=== PATIENT | female | born 1955 | race Caucasian/White ===

== ENCOUNTER → 2019-09-29 13:18 | Outpatient (BNVA) | payer MEDICARE, MEDICAID, SELFPAY | PROVIDERS: Family Provider Family Medicine; PCP Family Medicine; Visit Provider Nurse Practitioner | DX: M47.816 Spondylosis without myelopathy or radiculopathy, lumbar region (principal); M54.16 Radiculopathy, lumbar region; M47.812 Spondylosis without myelopathy or radiculopathy, cervical region; F17.290 Nicotine dependence, other tobacco product, uncomplicated; Z79.891 Long term (current) use of opiate analgesic | CPT/HCPCS: 99214 ==

== ENCOUNTER → 2019-11-07 13:34 | Outpatient (BNVA) | payer MEDICARE, MEDICAID, SELFPAY | PROVIDERS: Family Provider Family Medicine; PCP Family Medicine; Visit Provider Nurse Practitioner Psychiatric/Mental Health | DX: F33.2 Major depressive disorder, recurrent severe without psychotic features (principal); F60.3 Borderline personality disorder; F17.210 Nicotine dependence, cigarettes, uncomplicated | CPT/HCPCS: 99214 ==

== ENCOUNTER → 2019-11-29 12:21 | Outpatient (BNVA) | payer MEDICARE, MEDICAID, SELFPAY | PROVIDERS: Family Provider Family Medicine; PCP Family Medicine; Visit Provider Nurse Practitioner | DX: Z76.89 Persons encountering health services in other specified circumstances (principal) | CPT/HCPCS: 99213 ==

== ENCOUNTER → 2019-12-14 07:31 | Outpatient (BNVA) | payer MEDICARE, MEDICAID, SELFPAY | PROVIDERS: Family Provider Family Medicine; PCP Family Medicine; Visit Provider Nurse Practitioner Psychiatric/Mental Health | DX: F33.2 Major depressive disorder, recurrent severe without psychotic features (principal); F60.3 Borderline personality disorder; F17.210 Nicotine dependence, cigarettes, uncomplicated; Z79.899 Other long term (current) drug therapy | CPT/HCPCS: 99214 ==

== ENCOUNTER → 2020-01-04 13:27 | Outpatient (BNVA) | payer MEDICARE, MEDICAID, SELFPAY | PROVIDERS: Family Provider Family Medicine; PCP Family Medicine; Visit Provider Specialist | DX: G43.711 Chronic migraine without aura, intractable, with status migrainosus (principal); H55.09 Other forms of nystagmus; R26.9 Unspecified abnormalities of gait and mobility | CPT/HCPCS: 64615; 99213; J0585 ==

== ENCOUNTER → 2020-01-15 10:23 | Outpatient (BNVA) | payer MEDICARE, MEDICAID, SELFPAY | PROVIDERS: Family Provider Family Medicine; PCP Family Medicine; Visit Provider Nurse Practitioner Psychiatric/Mental Health | DX: Z79.899 Other long term (current) drug therapy (principal) | CPT/HCPCS: 80061; 83036 ==

== ENCOUNTER 2020-02-01 07:07 | Outpatient (CLI) | payer MEDICARE, MEDICAID, SELFPAY ==
--- NOTE | 2020-02-01 07:17 | MM_ITS ---
WS: [id number] SCREENING DIGITAL MAMMOGRAM WITH CAD HISTORY: SCREENING COMPARISON: 11/16/2018, 05/06/2018 and 09/30/2017 Bilateral CC and MLO views submitted. Computer aided detection analyzed. Breast composition: There are scattered areas of fibroglandular density. Irregular 8 mm nodule at 12: 00 middle depth in the RIGHT breast is new. Slightly irregular and ovoid in shape. Otherwise normal a ppearance of each breast. RIGHT breast: Spot compression views (CC and MLO). True ML. Ultrasound to follow if abnormality persi sts. MM/[place] [id number] IMPRESSION: BI-RADS: 0-Incomplete: Need additional imaging evaluation FOLLOW UP: Need Additional Imaging
== END 2020-02-01 07:08 | disposition home or self-care (01) ==
LOC: RADSHAW 07:10
PROVIDERS: PCP Family Medicine; Visit Provider Family Medicine
DX: Z12.31 Encounter for screening mammogram for malignant neoplasm of breast (principal); N63.15 Unspecified lump in the right breast, overlapping quadrants
CPT/HCPCS: 77067

== ENCOUNTER → 2020-02-07 07:45 | Outpatient (BNVA) | payer MEDICARE, MEDICAID, SELFPAY | PROVIDERS: PCP Family Medicine; Visit Provider Nurse Practitioner Psychiatric/Mental Health | DX: F33.2 Major depressive disorder, recurrent severe without psychotic features (principal); F60.3 Borderline personality disorder; F17.210 Nicotine dependence, cigarettes, uncomplicated | CPT/HCPCS: 99214 ==

== ENCOUNTER 2020-02-15 10:40 | Outpatient (CLI) | payer MEDICARE, MEDICAID, SELFPAY ==
--- NOTE | 2020-02-15 10:47 | US_ITS ---
WS: [id number] RIGHT DIGITAL MAMMOGRAPHY WITH CAD CLINICAL INFORMATION: ABNORMAL MAMMOGRAM COMPARISON: February 01, 2020 TECHNIQUE: 3 views of the right breast were obtained. FINDINGS: Scattered fibroglandular densities of the right breast. Punctate calcifications. Again seen is the sm all 8 mm asymmetric density at the 12:00 position mid depth right breast. This is unchanged. Ultrasou nd is pending. ULTRASOUND BREAST RIGHT TECHNIQUE: Ultrasound right breast focused area of concern. CLINICAL INFORMATION: ABNORMAL MAMMOGRAM COMPARISON: None. FINDINGS: Ultrasound right breast 12 to 2:00 position. Normal underlying breast tissue. No cystic or solid lesi ons. No lesions to target for biopsy. No suspicious lesions. US/US breast RT limited* [id number] IMPRESSION: BI-RADS: 2-Benign FOLLOW UP: 1 Year Follow-up Recommend return to annual screening mammography.
== END 2020-02-15 10:41 | disposition home or self-care (01) ==
LOC: RADSHAW 10:45
PROVIDERS: PCP Family Medicine; Visit Provider Family Medicine
DX: R92.8 Other abnormal and inconclusive findings on diagnostic imaging of breast (principal); N64.89 Other specified disorders of breast
CPT/HCPCS: 76642; 77065

== ENCOUNTER → 2020-03-14 07:46 | Outpatient (BNVA) | payer MEDICARE, MEDICAID, SELFPAY | PROVIDERS: PCP Family Medicine; Visit Provider Nurse Practitioner Psychiatric/Mental Health | DX: F33.2 Major depressive disorder, recurrent severe without psychotic features (principal); F60.3 Borderline personality disorder; F17.210 Nicotine dependence, cigarettes, uncomplicated; F43.12 Post-traumatic stress disorder, chronic | CPT/HCPCS: 99214 ==

== ENCOUNTER → 2020-03-20 13:36 | Outpatient (BNVA) | payer MEDICARE, MEDICAID, SELFPAY | PROVIDERS: PCP Family Medicine; Visit Provider Nurse Practitioner Family | DX: R05 Cough (principal); R19.7 Diarrhea, unspecified; R53.81 Other malaise; R53.83 Other fatigue; Z11.59 Encounter for screening for other viral diseases | CPT/HCPCS: 87635 ==

== ENCOUNTER → 2020-04-04 07:57 | Outpatient (BNVA) | payer MEDICARE, MEDICAID, SELFPAY | PROVIDERS: Family Provider Family Medicine; PCP Family Medicine; Visit Provider Anesthesiology | DX: G89.29 Other chronic pain (principal); M47.812 Spondylosis without myelopathy or radiculopathy, cervical region; M47.816 Spondylosis without myelopathy or radiculopathy, lumbar region; M54.16 Radiculopathy, lumbar region; F17.210 Nicotine dependence, cigarettes, uncomplicated; Z79.891 Long term (current) use of opiate analgesic | CPT/HCPCS: 99213; 99214 ==

== ENCOUNTER → 2020-04-17 13:40 | Outpatient (BNVA) | payer MEDICARE, MEDICAID, SELFPAY | PROVIDERS: Family Provider Family Medicine; PCP Family Medicine; Visit Provider Obstetrics & Gynecology | DX: R32 Unspecified urinary incontinence (principal); F40.231 Fear of injections and transfusions | CPT/HCPCS: 80053 ==

== ENCOUNTER 2020-04-30 15:16 | Outpatient (CLI) | payer MEDICARE, MEDICAID, SELFPAY ==
--- NOTE | 2020-04-30 15:23 | XR_ITS ---
WS: [id number] SCREENING DEXA SCAN [employer] CLINICAL INFORMATION: POSTMENOPAUSAL STATUS COMPARISON: None. FINDINGS: The L1-L4 bone mineral density measures 0.779 g/cm2. This corresponds to a T score score of -3.3 and Z score of -2.2. Left femoral neck bone mineral density measures 0.774 g/cm2. This corresponds to a T score of -1.9 an d Z score of -0.9. Right femoral neck bone mineral density measures 0.787 g/cm2. This corresponds to a T score -1.8of an d Z score of -0.8. Mean femoral neck bone mineral density measures 0.780 g/cm2. This corresponds to a T score of -1.8 an d Z score of -0.9. XR/XR DEXA axial skeleton* [id number] IMPRESSION: Osteoporosis in the lumbar spine and osteopenia in the femoral necks. Patient's FRAX calculated 10 year probability for major osteoporotic fracture i s 13.6 % and osteoporotic hip fracture is 4.3%.
== END 2020-04-30 15:17 | disposition home or self-care (01) ==
LOC: RADWPI 15:22
PROVIDERS: Family Provider Family Medicine; PCP Family Medicine; Visit Provider Family Medicine
DX: Z78.0 Asymptomatic menopausal state (principal); M81.0 Age-related osteoporosis without current pathological fracture
CPT/HCPCS: 77080

== ENCOUNTER → 2020-05-09 12:32 | Outpatient (BNVA) | payer MEDICARE, MEDICAID, SELFPAY | PROVIDERS: Family Provider Family Medicine; PCP Family Medicine; Visit Provider Anesthesiology | DX: G89.29 Other chronic pain (principal); M54.16 Radiculopathy, lumbar region; M54.6 Pain in thoracic spine; M47.812 Spondylosis without myelopathy or radiculopathy, cervical region; M54.9 Dorsalgia, unspecified; F17.210 Nicotine dependence, cigarettes, uncomplicated; Z79.891 Long term (current) use of opiate analgesic | CPT/HCPCS: 99214 ==

== ENCOUNTER 2020-05-17 06:00 | Outpatient (RCR) | payer MEDICARE, MEDICAID, SELFPAY | END 2020-05-29 23:59 | disposition home or self-care (01) | LOC: SPT 06:00 | PROVIDERS: PCP Family Medicine; Referring Provider Family Medicine; Visit Provider Family Medicine | DX: R26.81 Unsteadiness on feet (principal); G35 Multiple sclerosis | CPT/HCPCS: 97110; 97162 ==

== ENCOUNTER → 2020-05-23 08:43 | Outpatient (BNVA) | payer MEDICARE, MEDICAID, SELFPAY | PROVIDERS: PCP Family Medicine; Visit Provider Nurse Practitioner Psychiatric/Mental Health | DX: F33.2 Major depressive disorder, recurrent severe without psychotic features (principal); F60.3 Borderline personality disorder; F17.210 Nicotine dependence, cigarettes, uncomplicated | CPT/HCPCS: 99214 ==

== ENCOUNTER 2020-05-30 06:00 | Outpatient (RCR) | payer MEDICARE, MEDICAID, SELFPAY | END 2020-06-26 08:46 | disposition home or self-care (01) | LOC: SPT 06:00 | PROVIDERS: PCP Family Medicine; Referring Provider Family Medicine; Visit Provider Family Medicine | DX: R26.81 Unsteadiness on feet (principal); G35 Multiple sclerosis | CPT/HCPCS: 97110 ==

== ENCOUNTER → 2020-06-27 07:51 | Outpatient (BNVA) | payer MEDICARE, MEDICAID, SELFPAY | PROVIDERS: Family Provider Family Medicine; PCP Family Medicine; Visit Provider Anesthesiology | DX: G89.29 Other chronic pain (principal); G37.9 Demyelinating disease of central nervous system, unspecified; M54.16 Radiculopathy, lumbar region; M47.812 Spondylosis without myelopathy or radiculopathy, cervical region; M54.9 Dorsalgia, unspecified; F17.210 Nicotine dependence, cigarettes, uncomplicated; Z79.891 Long term (current) use of opiate analgesic | CPT/HCPCS: 99214 ==

== ENCOUNTER → 2020-07-11 09:38 | Outpatient (BNVA) | payer MEDICARE, MEDICAID, SELFPAY | PROVIDERS: Family Provider Family Medicine; PCP Family Medicine; Visit Provider Anesthesiology | DX: M79.18 Myalgia, other site (principal); M47.812 Spondylosis without myelopathy or radiculopathy, cervical region; F17.210 Nicotine dependence, cigarettes, uncomplicated; Z79.891 Long term (current) use of opiate analgesic | CPT/HCPCS: 20553; J1030; J3490 ==

== ENCOUNTER → 2020-07-18 08:25 | Outpatient (BNVA) | payer MEDICARE, MEDICAID, SELFPAY | PROVIDERS: Family Provider Family Medicine; PCP Family Medicine; Visit Provider Nurse Practitioner Psychiatric/Mental Health | DX: F33.2 Major depressive disorder, recurrent severe without psychotic features (principal); F60.3 Borderline personality disorder; F17.210 Nicotine dependence, cigarettes, uncomplicated | CPT/HCPCS: 99214 ==

== ENCOUNTER → 2020-08-12 09:42 | Outpatient (BNVA) | payer MEDICARE, MEDICAID, SELFPAY | PROVIDERS: Family Provider Family Medicine; PCP Family Medicine; Visit Provider Nurse Practitioner Psychiatric/Mental Health | DX: F33.2 Major depressive disorder, recurrent severe without psychotic features (principal); F60.3 Borderline personality disorder; F17.210 Nicotine dependence, cigarettes, uncomplicated | CPT/HCPCS: 99214 ==

== ENCOUNTER 2020-08-14 13:57 | Outpatient (CLI) | payer MEDICARE, MEDICAID, SELFPAY ==
--- NOTE | 2020-08-14 14:01 | XR_ITS ---
WS: [id number] Chest 2 views, 08/14/2020 Clinical Data: COUGH Comparison: PA and lateral chest, 02/29/2000 1720 Findings: No nodules, masses or effusions are seen. The heart is enlarged. The pulmonary vascularity is not increased. No pneumonia or pneumothorax is seen. The aortic arch and descending aorta are tort uous. There is a slight dextroscoliosis of the lower thoracic spine. There are epidural stimulator wi res over the right chest with the stimulator leads at the level of the lower cervical epidural space. XR/XR chest 2V* [id number] Impression: Atherosclerosis.
== END 2020-08-14 13:58 | disposition home or self-care (01) ==
LOC: RAD 13:59
PROVIDERS: PCP Family Medicine; Visit Provider Family Medicine
DX: R05 Cough (principal); I70.90 Unspecified atherosclerosis
CPT/HCPCS: 71046

== ENCOUNTER → 2020-08-27 07:54 | Outpatient (BNVA) | payer MEDICARE, MEDICAID, SELFPAY | PROVIDERS: PCP Family Medicine; Visit Provider Anesthesiology | DX: M47.812 Spondylosis without myelopathy or radiculopathy, cervical region (principal); M54.9 Dorsalgia, unspecified; M54.16 Radiculopathy, lumbar region; G89.29 Other chronic pain; Z79.891 Long term (current) use of opiate analgesic; Z87.891 Personal history of nicotine dependence | CPT/HCPCS: 99214 ==

== ENCOUNTER → 2020-09-04 09:56 | Outpatient (BNVA) | payer MEDICARE, MEDICAID, SELFPAY | PROVIDERS: PCP Family Medicine; Visit Provider Specialist | DX: R26.9 Unspecified abnormalities of gait and mobility (principal); G43.711 Chronic migraine without aura, intractable, with status migrainosus; H55.09 Other forms of nystagmus; Z87.891 Personal history of nicotine dependence | CPT/HCPCS: 99214 ==

== ENCOUNTER → 2020-09-11 08:13 | Outpatient (BNVA) | payer MEDICARE, MEDICAID, SELFPAY | PROVIDERS: PCP Family Medicine; Visit Provider Nurse Practitioner Psychiatric/Mental Health | DX: F33.2 Major depressive disorder, recurrent severe without psychotic features (principal); F60.3 Borderline personality disorder; F17.210 Nicotine dependence, cigarettes, uncomplicated; F41.1 Generalized anxiety disorder | CPT/HCPCS: 99214 ==

== ENCOUNTER → 2020-09-12 17:34 | Outpatient (BNVA) | payer MEDICARE, MEDICAID, SELFPAY | PROVIDERS: PCP Family Medicine; Visit Provider Family Medicine | DX: Z11.59 Encounter for screening for other viral diseases (principal) | CPT/HCPCS: 87635 ==

== ENCOUNTER → 2020-10-09 07:27 | Outpatient (BNVA) | payer MEDICARE, MEDICAID, SELFPAY | PROVIDERS: PCP Family Medicine; Visit Provider Nurse Practitioner Psychiatric/Mental Health | DX: F33.2 Major depressive disorder, recurrent severe without psychotic features (principal); F60.3 Borderline personality disorder; F17.210 Nicotine dependence, cigarettes, uncomplicated | CPT/HCPCS: 99214 ==

== ENCOUNTER → 2020-10-22 08:26 | Outpatient (BNVA) | payer MEDICARE, MEDICAID, SELFPAY | PROVIDERS: PCP Family Medicine; Visit Provider Anesthesiology | DX: G89.29 Other chronic pain (principal); M54.16 Radiculopathy, lumbar region; M47.812 Spondylosis without myelopathy or radiculopathy, cervical region; F17.210 Nicotine dependence, cigarettes, uncomplicated; Z79.891 Long term (current) use of opiate analgesic; Z71.6 Tobacco abuse counseling | CPT/HCPCS: 99213; 99214 ==

== ENCOUNTER 2020-11-11 12:42 | Emergency (ER) | payer MEDICARE, MEDICAID, SELFPAY ==
[2020-11-11] VITALS (9 sets, daily range): BP systolic 153–163; BP diastolic 81–99; PULSE 74–92; RESP 16–22; TEMP 36.7; O2SAT 93–96; BMI 31.1
--- NOTE | 2020-11-11 13:02 | ECG_ITS ---
[facility] Test Date: 2020-11-11 Pat Name: Ruthie Fontenot Department: Room: Gender: Female [employer] C[employer]: : 1955 Requested By: Mike Fernández Order Number: [id number] Joshua MD: Shahana Kelley M.D. Measurements Intervals [place] Rate: 75 P: 42 [place]: 162 QRS: 42 QRSD: 89 T: 38 QT: 415 QTc: 464 Interpretive Statements SINUS RHYTHM Compared to ECG 10/07/2016 23:17:03 No significant changes Electronically Signed On 11-11-2020 23:58:43 CDT by Shahana Kelley M.D. [id number]
--- NOTE | 2020-11-11 13:07 | W.ED.NAVMDI ---
HPI - Nausea/Vomiting/Diarrhea General: Chief complaint: Nausea/Vomiting/Diarrhea Stated complaint: N/V/D Time Seen by Provider: 11/11/20 12:52 History of Present Illness: HPI Narrative: The patient is a 65-year-old female with past medical history MS, gastric ulcer, hypertension. She comes to the ER complaining of nausea vomiting and diarrhea for the past 3 days as well as epigastric abdominal pain. She was brought in by EMS who started fluids and gave her Phenergan. She says this all started a few months back when she got Covid and she has felt weak since. However she felt much better but over the past few days increasing nausea vomiting and diarrhea and she feels dehydrated. MD elicited complaint: nausea, vomiting, diarrhea and abdominal pain Associated nausea: Yes Associated abdominal pain: Yes Location of pain: Epigastric Pain consistency: constant Severity: moderate Quality: cramping Exacerbating factors: eating, bowel movement and vomiting Relieving factors: none Associated symtoms: Reports no associated symptoms and nausea; Denies anxiety, change in vision, chest pain, dizziness, fatigue, headache(s) or palpitations Review of Systems General: Reports: 10 or more systems reviewed and unremarkable except in HPI and below Const: Denies: fatigue Eyes: Denies: change in vision, blurry vision or eye redness ENMT: Denies: throat pain, swelling of lips/tongue, ear or mastoid pain or nasal congestion Card: Denies: chest pain, palpitations, irregular heart rhythm, edema, dyspnea on exertion or orthopnea Resp: Denies: dyspnea, productive cough or non-productive cough GI: Reports: nausea : Denies: flank pain, difficulty voiding, urinary frequency or urinary urgency Musc: Denies: neck pain, back pain, extremity pain, joint pain, joint redness, limited range of motion or muscle weakness Skin/Breast: Denies: rash, pruritus, erythema, skin pain or skin tenderness Neuro: Denies: headache(s), numbness in extremities, weakness in extremities, sensory changes, difficulty walking, dizziness, confusion or Slurred speech present Psych: Denies: anxiety or depression Endo: Denies: polyuria All/Imm: Denies: urticaria, throat swelling or tongue swelling PFSH ED PFSH: Medical History Borderline personality disorder Cervical facet syndrome Chronic hypertension Diagnosed in 2009 and controlled on medication managed by primary care provider Chronic radicular low back pain Has had surgery for chronic lower back pain. Diabetes mellitus Diagnosed in 2014 and she is currently on metformin. She states that her last hemoglobin A1c was high Hypercholesteremia Diagnosed in 2009 and is controlled with medication managed by PMD Long-term current use of opiate analgesic Major depressive disorder, recurrent severe without psychotic features 2014 currently on medication and follows up with [facility] Myalgia No pertinent past medical history Denies: Asthma seizures, DVT/PE PCP: Dr. Coronado Surgical History Hx of cervical spine surgery (~03/24/18) Dr Watts 03/24/18 Comments: Cervical laminectomy for placement of intraspinal, epidural paddle electrode arrays and placement of subcutaneous pulse generator. Hx of cholecystectomy 2011-[facility]ar[place] [facility] [facility] Hx of hysterectomy Had a total abdominal hysterectomy via Pfannenstiel incision for pelvic inflammatory disease per patient. She states that both tubes, uterus and the left ovary were removed. She only has her right ovary remaining at this time. Family History Mother Diabetes Heart disease Hyperlipidemia Brother Hypertension x 2 Sister Breast cancer Diagnose at age 35 Denies family history of Colon cancer Ovarian cancer Anesthesia complication Bleeding disorder Uterine cancer Thyroid condition Stroke Social History Smoking and tobacco status: former smoker Quit status (tobacco): has quit using tobacco Former quit date comment: STOPPED 5 DAYS AGO Second hand smoke exposure: Yes Alcohol intake: never Lives independently: Yes Household members: none Current occupational status: disabled History of recent travel: No Physical Exam Const: COMMON NORMALS: no acute distress, average body habitus, patient oriented x3, no limitations, healthy appearing, alert and well nourished GENERAL APPEARANCE: cooperative, comfortable, well kempt and well developed ORIENTATION/CONSCIOUSNESS: Yes awake, Yes oriented to person, Yes oriented to place and Yes oriented to time HENMT: COMMON NORMALS: normocephalic, external ears normal and Normal external nose present HEAD & SCALP: normal to inspection and normocephalic NOSE: Normal external nose present EXTERNAL EAR: Yes external ears normal MOUTH: Normal oral and palatal mucosa present THROAT: posterior oropharynx normal Eye: COMMON NORMALS: Equal, round and reactive pupils present and EOMs intact bilaterally GENERAL EYE: appearance normal, both eyes and all related structures PUPIL: Yes Equal, round and reactive pupils present Neck/C-Spine: COMMON NORMALS: full ROM, no lymphadenopathy, no meningeal signs and no JVD GENERAL: Yes normal visual inspection Lymph: LYMPHATIC: no lymphadenopathy noted Chest: COMMONS NORMALS: normal inspection of the chest and normal palpation of entire chest wall Resp: COMMON NORMALS: normal respiratory effort, No retractions, No use of accessory muscles, clear to auscultation bilaterally and percussion normal EFFORT & INSPECTION: Yes able to speak in complete sentences AUSCULTATION: clear to auscultation bilaterally PERCUSSION: percussion normal Cardio: COMMON NORMALS: no JVD, regular rate, regular rhythm, S1 normal heart sound present, S2 normal heart sound present and Peripheral pulses 2+ throughout RATE: regular rate RHYTHM: regular rhythm HEART SOUNDS: S1 normal heart sound present and S2 normal heart sound present PERIPHERAL PULSES: Peripheral pulses 2+ throughout GI: COMMON NORMALS: Normal to inspection, nondistended, normoactive bowel sounds present, Soft to palpation and no masses INSPECTION: Yes normal to inspection PALPATION: Yes Soft to palpation and Yes Tenderness to palpation present (GI) (epigastric) : COMMON NORMALS: Yes no CVA tenderness BLADDER/KIDNEY EXAM: Yes no CVA tenderness Back/Pelvis: COMMON NORMALS: no CVA tenderness, thoracic and lumbar spine normal to inspection, no thoracic nor lumbar tenderness and thoraco-lumbar ROM normal Extremity: COMMON NORMALS: normal to inspection, full ROM, capillary refill normal, no joint enlargement and no pedal edema GENERAL: Yes normal exam except as noted Neuro: COMMON NORMALS: patient oriented x3, CN's II-XII intact bilaterally, moves all extremities, no focal motor deficits, no sensory deficits noted and gait normal SENSORIUM/ORIENTATION: Yes alert, Yes oriented to person, Yes oriented to place and Yes oriented to time MENINGEAL SIGNS: Yes no meningeal signs Psych: COMMON NORMALS: mental status grossly normal, Normal thought process present, cooperative, normal affect and speech normal APPEARANCE: Yes well kempt ATTITUDE: Yes calm SPEECH: Yes normal speech THOUGHT PROCESS: Normal thought process present Skin: COMMON NORMALS: no rashes or lesions noted GENERAL SKIN EXAM: no rashes or lesions noted Course Vital Signs: Vital signs: Vital Signs Temperature 98.0 F 11/11/20 12:44 Pulse Rate 92 11/11/20 15:27 Respiratory Rate 16 11/11/20 15:27 Blood Pressure 163/81 11/11/20 15:27 Pulse Oximetry 93 11/11/20 15:27 MDM - Nausea/Vomiting/Diarrhea MDM Narrative: Medical decision making narrative: Ms. Hendricks came here today for upper abdominal pain and nausea which she has had for weeks. Worse the past couple days. She has a history of gastric ulcer which she does not take anything for. Labs were mostly unremarkable with a mild white count of 12.2 likely from dehydration. She was given IV fluids, Zofran, GI cocktail. The GI cocktail did help her pain. CT abdomen pelvis unremarkable. Discharged her with omeprazole and recommended she follow-up with her primary care physician in a few days. Placed a case management referral to help her get in with a GI doctor. ER with worsening symptoms Lab Data: Labs: Lab Results 11/11/20 11/11/20 11/11/20 Range/Units 12:25 12:25 12:25 WBC 12.2 H (4.0-10.0) 10^3/ uL RBC 5.30 (4.1-5.3) 10^6/u L Hgb 16.0 H (11.5-15.3) g/dL Hct 47.5 H (37.0-47.0) % MCV 89.6 (81-99) fL MCH 30.2 (28.0-34.0) pg MCHC 33.7 (30.0-36.0) g/dL RDW 12.9 (12.1-15.1) % Plt Count 322 (130-400) 10^3/c mm MPV 9.0 (7.4-10.4) fL Neut % (Auto) 82.6 % Lymph % (Auto) 14.1 % Snyder % (Auto) 2.4 % Eos % (Auto) 0.0 % Baso % (Auto) 0.3 % Neut # (Auto) 10.12 H (1.8-7.7) 10^3/u L Lymph # (Auto) 1.7 (0.8-4.8) 10^3/u L Snyder # (Auto) 0.3 (0.2-0.9) 10^3/u L Eos # (Auto) 0.0 (0.0-0.8) 10^3/u L Baso # (Auto) 0.0 (0.0-0.1) 10^3/u L Nucleated RBC % (a uto) 0 % Nucleated RBCs # 0.0 /100WBC Sodium 140 (136-145) mmol/L Potassium 4.1 (3.5-5.1) mmol/L Chloride 101 (98-107) mmol/L Carbon Dioxide 21 L (22-29) mmol/L Anion Gap 22.1 H (5-19) BUN 13 (8-23) mg/dL Creatinine 0.5 (0.5-0.9) mg/dL GFR Calculation 123.4 (90-130) mL/min Glucose 182 H (65-115) mg/dL Calculated Osmolal ity 295 (285-295) mOsm/k g Lactate (0.5-2.2) mmol/L Calcium 10.0 (8.5-10.5) mg/dL Total Bilirubin 0.3 (0.15-1.2) mg/dL AST 26 (0-32) U/L ALT 18 (0-33) U/L Alkaline Phosphata se 66 (35-105) IU/L Troponin T Baselin e 6 (0-10) ng/L Total Protein 7.9 (6.6-8.7) g/dL Albumin 5.0 (3.5-5.2) g/dL Globulin 2.9 (1.3-4.6) g/dL Lipase 86 H (13-60) U/L Urine Color (Yellow) Urine Appearance (CLEAR) Urine pH (5-7) Ur Specific Gravit y (1.005-1.030) Urine Protein (Negative) Urine Glucose (UA) (Normal) Urine Ketones (Negative) Urine Blood (Negative) Urine Nitrate (Negative) Urine Bilirubin (Negative) Urine Urobilinogen (Negative) mg/dL Ur Leukocyte Eleanor ase (Negative) Urine RBC (0-2) /hpf Urine WBC (0-5) /hpf Ur Squamous Epith Cells (0-5) /hpf Amorphous Sediment Urine Bacteria (NONE) /hpf 11/11/20 11/11/20 Range/Units 14:45 15:26 WBC (4.0-10.0) 10^3/ uL RBC (4.1-5.3) 10^6/u L Hgb (11.5-15.3) g/dL Hct (37.0-47.0) % MCV (81-99) fL MCH (28.0-34.0) pg MCHC (30.0-36.0) g/dL RDW (12.1-15.1) % Plt Count (130-400) 10^3/c mm MPV (7.4-10.4) fL Neut % (Auto) % Lymph % (Auto) % Snyder % (Auto) % Eos % (Auto) % Baso % (Auto) % Neut # (Auto) (1.8-7.7) 10^3/u L Lymph # (Auto) (0.8-4.8) 10^3/u L Snyder # (Auto) (0.2-0.9) 10^3/u L Eos # (Auto) (0.0-0.8) 10^3/u L Baso # (Auto) (0.0-0.1) 10^3/u L Nucleated RBC % (a uto) % Nucleated RBCs # /100WBC Sodium (136-145) mmol/L Potassium (3.5-5.1) mmol/L Chloride (98-107) mmol/L Carbon Dioxide (22-29) mmol/L Anion Gap (5-19) BUN (8-23) mg/dL Creatinine (0.5-0.9) mg/dL GFR Calculation (90-130) mL/min Glucose (65-115) mg/dL Calculated Osmolal ity (285-295) mOsm/k g Lactate 1.8 (0.5-2.2) mmol/L Calcium (8.5-10.5) mg/dL Total Bilirubin (0.15-1.2) mg/dL AST (0-32) U/L ALT (0-33) U/L Alkaline Phosphata se (35-105) IU/L Troponin T Baselin e (0-10) ng/L Total Protein (6.6-8.7) g/dL Albumin (3.5-5.2) g/dL Globulin (1.3-4.6) g/dL Lipase (13-60) U/L Urine Color Yellow (Yellow) Urine Appearance Sl hazy (CLEAR) Urine pH 5 (5-7) Ur Specific Gravit y 1.020 (1.005-1.030) Urine Protein Trace (Negative) Urine Glucose (UA) Norm (Normal) Urine Ketones 2+ H (Negative) Urine Blood Neg (Negative) Urine Nitrate Negative (Negative) Urine Bilirubin Neg (Negative) Urine Urobilinogen Norm (Negative) mg/dL Ur Leukocyte Eleanor ase 1+ H (Negative) Urine RBC None (0-2) /hpf Urine WBC 5-10 H (0-5) /hpf Ur Squamous Epith Cells 10-15 H (0-5) /hpf Amorphous Sediment Not Reportable Urine Bacteria 1+ H (NONE) /hpf Discharge Plan Discharge Patient Disposition: Home Clinical Impression: Abdominal pain Condition: Stable Prescriptions: New omeprazole 40 mg capsule,delayed release(DR/EC) 40 mg PO DAILY 14 Days RF: 0 ondansetron 4 mg tablet,disintegrating 4 mg PO Q8H 5 Days Qty: 15 RF: 0 No Action hydrochlorothiazide 12.5 mg tablet 12.5 mg PO DAILY@0800 RF: 0 losartan 50 mg tablet 50 mg PO DAILY@0800 RF: 0 amlodipine 5 mg tablet 5 mg PO DAILY@0800 RF: 0 acyclovir 400 mg tablet 400 mg PO BID@799,1999 RF: 0 metformin 500 mg tablet 500 mg PO DAILY@0800 RF: 0 atorvastatin 10 mg tablet 10 mg PO BEDTIME@1999 RF: 0 ondansetron HCl [Zofran] 4 mg tablet 4 mg PO Q6H RF: 0 doxycycline hyclate 100 mg capsule 100 mg PO BID@799,1999 RF: 0 methylprednisolone acetate [Depo-Medrol] 40 mg/mL suspension 40 mg intra-articular ONCE Qty: 1 RF: 0 bupivacaine (PF) 0.25 % (2.5 mg/mL) solution 1 ml intra-articular ONCE Qty: 1 RF: 0 hydrocodone-acetaminophen 10-325 mg tablet 1 tab PO TID PRN (Reason: pain) 30 Days Qty: 90 RF: 0 nystatin 100,000 unit/gram powder 1 applic TOPICAL DAILY PRN (Reason: UNKNOWN) RF: 0 alendronate [Fosamax] 70 mg tablet 70 mg PO .WEEKLY RF: 0 dalfampridine 10 mg tablet extended release 12 hr 10 mg PO Q12H Qty: 60 RF: 5 trazodone 100 mg tablet 100 mg PO DIRECTED PRN (Reason: insomnia) Qty: 60 RF: 3 Tylenol 325 mg Tablet 325 mg PO QID PRN (Reason: Pain) RF: 0 propranolol 10 mg tablet 10 mg PO BID@0800,2000 RF: 0 primidone 50 mg tablet 100 mg PO DAILY@0800 RF: 0 Zoloft 100 mg tablet 100 mg PO DAILY@0800 RF: 0 Ditropan XL 5 mg tablet extended release 24hr 5 mg PO DAILY@0800 RF: 0 Aimovig Autoinjector 140 mg/mL auto-injector See Rx Instructions .ROUTE .COMPLEX RF: 0 Benefiber Healthy Shape 5 gram/7.4 gram Powder See Rx Instructions .ROUTE .COMPLEX RF: 0 Discharge Orders: Discharge ED (Routine); Ordered 11/11/20 Ordered By: Mike Fernández Referrals: Darryl Coronado MD [Primary Care Provider] - Discharge Diet: Advance as tolerated Discharge Activity: Resume usual activity Patient Instructions: Abdominal Pain (ED), Opioid Safety Activity Restrictions/Additional Instructions: You have abdominal pain of unclear cause though possibly it is your gastric ulcer. I am discharging you with omeprazole. Please take this daily for several weeks and follow-up with your primary care physician in a week to monitor improvement of your symptoms. Return to the ER with worsening symptoms. Drink lots of fluids and take Zofran to help with your nausea Coding Level of Care Code ED Planting Material Unloader for Teresa Fwd Exam Comprehensive
--- NOTE | 2020-11-11 13:12 | PC.NURSE ---
Read and agree with assessment
[2020-11-11 13:22] LABS: Alanine Aminotransferase 18 U/L (0-33); Alkaline Phosphatase 66 IU/L (35-105); Anion Gap 22.1 (5-19); Aspartate Amino Transferase 26 U/L (0-32); Blood Urea Nitrogen 13 mg/dL (8-23); Carbon Dioxide 21 mmol/L (22-29); Chloride 101 mmol/L (98-107); Globulin 2.9 g/dL (1.3-4.6); Glomerular Filtration Rate 123.4 mL/min (90-130); Glucose 182 mg/dL (65-115); Lipase 86 U/L (13-60); Osmolality Calculated 295 mOsm/kg (285-295); Potassium 4.1 mmol/L (3.5-5.1); Sodium 140 mmol/L (136-145); Total Bilirubin 0.3 mg/dL (0.15-1.2); Total Protein 7.9 g/dL (6.6-8.7)
[2020-11-11 13:23] LABS: Basophils % 0.3 %; Hematocrit 47.5 % (37.0-47.0); Lymphocytes # 1.7 10^3/uL (0.8-4.8); Lymphocytes % 14.1 %; Mean Corpuscular HGB Conc 33.7 g/dL (30.0-36.0); Mean Corpuscular Hemoglobin 30.2 pg (28.0-34.0); Mean Corpuscular Volume 89.6 fL (81-99); Monocytes # 0.3 10^3/uL (0.2-0.9); Monocytes % 2.4 %; Neutrophils # 10.12 10^3/uL (1.8-7.7); Neutrophils % 82.6 %; Nucleated Red Blood Cells % 0 %; Platelet Count 322 10^3/cmm (130-400); Red Cell Distribution Width 12.9 % (12.1-15.1); Troponin(5th) Baseline 6 ng/L (0-10); White Blood Count 12.2 10^3/uL (4.0-10.0)
[2020-11-11] MEDS: lidocaine 2% viscous 15 ML, aluminum-mag hydrox-simethicon 30 ML, sucralfate oral liq 1 GM PO (13:34)
[2020-11-11] MEDS: pantoprazole DR 40 mg Tablet PO (13:39)
[2020-11-11] MEDS: sodium chloride 0.9% 1,000 ML 999 ML IV (13:40)
[2020-11-11] MEDS: ondansetron 2 mg/ML SDV 2 mL 4 MG IVP (14:06)
[2020-11-11] MEDS: famotidine 20 mg/2 mL INJ 40 MG IVP (14:06)
--- NOTE | 2020-11-11 15:18 | CT_ITS ---
WS: [id number] CT abdomen pelvis w con* [id number] REASON FOR EXAM: abdominal pain IV CONTRAST ADMINISTERED: 95 mL of Omnipaque 300 TOTAL EXAM DLP: 1528.[address] scans at [facility] use at least one of these dose optimization techniques: automat ed exposure control; mA and/or kV adjustment per patient size (includes targeted exams where dose is matched to clinical indication); or iterative reconstruction. FINDINGS: ABDOMEN: The liver, spleen, and pancreas are unremarkable. Status post cholecystectomy. The adrenals and kidneys are within normal limits. No mass or adenopathy. No free fluid or focal fluid collection. The abdominal aorta and its major branches are unremarkable. No bowel abnormality is identified. Appendix contains gas and is therefore normal. No hernias. Lumbar spine is unremarkable. PELVIS: No mass, adenopathy, free fluid, or focal fluid collection. No abnormality of the urinary bladder identified. Bony pelvis is intact. CT/CT abdomen pelvis w con* [id number] IMPRESSION: No acute abdominal or pelvic abnormality identified.
[2020-11-11 15:21] LABS: Lactate (Lactic Acid level) 1.8 mmol/L (0.5-2.2)
--- NOTE | 2020-11-11 15:28 | PC.NURSE ---
Pt assisted to [facility] for UA. Urine sent to lab.
[2020-11-11] MEDS: iohexol 300 mg/mL 100 mL Btl IV (15:38)
[2020-11-11 15:46] LABS: Add Urine Microscopic? YES; Bilirubin Urine Neg (Negative); Blood Urine Neg (Negative); Glucose Urine UA Norm (Normal); Ketones Urine 2+ (Negative); Leukocyte Esterase Urine 1+ (Negative); Nitrate Urine Negative (Negative); Protein Urine Trace (Negative); Urine Appearance SL Hazy (CLEAR); Urine Color Yellow (Yellow); Urobilinogen Urine Norm (Negative); pH Urine 5 (5-7)
[2020-11-11 15:50] LABS: Add Urine Culture? No; Bacteria Urine 1+ /hpf
[2020-11-11] MEDS: morphine 4 mg/mL SDV 1 mL 2 MG IVP (16:45)
--- NOTE | 2020-11-13 09:20 | DCPLANNER ---
division operations manager had message to schedule a follow up appointment for patient with general surgery. division operations manager emailed patients information to both Joanie and Theresa at [facility] General Surgery. Patients information will be printed and reviewed. Clinic will call patient with appointment information.
--- NOTE | 2020-11-19 07:36 | DCPLANNER ---
Patient has a follow up appointment scheduled for Friday, November 27, 2020 at 2:[address] Barahona at [facility] general surgery. Clinic will call patient with appointment information.
--- NOTE | 2020-12-11 13:38 | DCPLANNER ---
Patient had a follow up appointment scheduled for 11.27.[address] Barahona at general surgery - patient did attend appointment.
== END 2020-11-11 17:11 | disposition home or self-care (01) ==
PROVIDERS: Emergency Provider Family Medicine; PCP Family Medicine
DX: R10.9 Unspecified abdominal pain (principal); Z79.84 Long term (current) use of oral hypoglycemic drugs; I10 Essential (primary) hypertension; E11.9 Type 2 diabetes mellitus without complications; Z87.891 Personal history of nicotine dependence
CPT/HCPCS: 74177; 80053; 81001; 83605; 83690; 84484; 85025; 93005; 96361; 96374; 96375; 99284; J2270; J2405; J3490; J7030; Q9967

== ENCOUNTER → 2020-11-12 07:37 | Outpatient (BNVA) | payer MEDICARE, MEDICAID, SELFPAY | PROVIDERS: PCP Family Medicine; Visit Provider Nurse Practitioner Psychiatric/Mental Health | DX: F33.2 Major depressive disorder, recurrent severe without psychotic features (principal); F60.3 Borderline personality disorder; F17.210 Nicotine dependence, cigarettes, uncomplicated | CPT/HCPCS: 99214 ==

== ENCOUNTER → 2020-11-28 07:53 | Outpatient (BNVA) | payer MEDICARE, MEDICAID, SELFPAY | PROVIDERS: PCP Family Medicine; Visit Provider Specialist | DX: G43.711 Chronic migraine without aura, intractable, with status migrainosus (principal); R26.9 Unspecified abnormalities of gait and mobility; H55.09 Other forms of nystagmus; G45.0 Vertebro-basilar artery syndrome; G37.9 Demyelinating disease of central nervous system, unspecified; F17.210 Nicotine dependence, cigarettes, uncomplicated | CPT/HCPCS: 99215 ==

== ENCOUNTER → 2020-12-10 07:33 | Outpatient (BNVA) | payer MEDICARE, MEDICAID, SELFPAY | PROVIDERS: PCP Family Medicine; Visit Provider Nurse Practitioner Psychiatric/Mental Health | DX: F33.2 Major depressive disorder, recurrent severe without psychotic features (principal); F60.3 Borderline personality disorder; F17.210 Nicotine dependence, cigarettes, uncomplicated | CPT/HCPCS: 99214 ==

== ENCOUNTER 2020-12-20 07:59 | Outpatient (CLI) | payer MEDICARE, MEDICAID, SELFPAY ==
--- NOTE | 2020-12-20 08:30 | CT_ITS ---
WS: [id number] CT ANGIOGRAM CEREBRAL AND CAROTID ARTERIES Noncontrast CT head. HISTORY: G45.9 - Transient cerebral ischemic attack, unspecified TECHNIQUE: CT angiogram is performed of the carotid and cerebral arteries. During arterial injection imaging is obtained from the skull vertex to the aortic arch in 1.25 mm imaging. Coronal and sagittal reformats are submitted. Additional multi planar reformats of the carotid and cerebral arteries are submitted, MIP imaging also reviewed. NASCET criteria utilized. All CT scans at [facility] use at least one of these dose optimization techniques: automated exposure control; mA and/or kV ad justment per patient size (includes targeted exams where dose is matched to clinical indication); or iterative reconstruction. CONTRAST: Omnipaque 350; 95 mL IV. DLP: 2002.17 mGycm COMPARISON: MRI brain with contrast 08/26/2016, neck CT 09/25/2014 and MRI internal auditory canals Noncontrast CT head. No acute intracranial hemorrhage or edema. Very mild atrophy and mild chronic microvascular ischemic change. Tiny lacunar infarct in the RIGHT caudate head. Carotid Angiogram: Right carotid: Common carotid artery: Arises normally from the innominate artery. No significant plaque or stenosis. Internal carotid artery: No plaque or stenosis. External carotid artery: Patent. Left carotid: Common carotid artery: Arises normally from the aorta. No significant plaque or stenosis. Internal carotid artery: There is small amount of calcified plaque at the proximal ICA and bifurcatio n. No stenosis. External carotid artery: Patent. Right vertebral artery: Unremarkable. Left vertebral artery: LEFT vertebral artery is dominant. There is artifact from patient's cervical s timulator through the LEFT vertebral artery. Subclavian arteries: No stenosis or significant abnormality. Upper thorax: Normal. Thyroid gland: Normal. Osseous structures: Mild straightening and reversal normal cervical lordosis. Stimulator electrodes a re noted over the posterior cervical region. CEREBRAL ANGIOGRAM: Intracranial vertebral arteries: Dominant LEFT. Both vertebral arteries are patent. Basilar artery: No significant stenosis or occlusion. No aneurysm. Intracranial Internal carotid arteries: Demonstrates no significant stenosis or plaque. Middle cerebral arteries: M1 and M2 segments are normal. There is a very prominent loop prominent vas cular loop in the anterior LEFT middle cranial fossa. Favor this is probably a prominent loop and not an aneurysm. This has been stable over multiple prior examinations dating back to 2015. Anterior cerebral arteries and ACOM: Small caliber LEFT A2 segment. No aneurysm or occlusions. Posterior cerebral arteries and PCOM's: Hypoplastic or absent RIGHT P-comm. Small caliber LEFT transverse sinus. Mastoid air cells: Normal. Paranasal sinuses: Normal. Calvarium: Hyperostosis frontalis interna. CT/CT angio headneck* [id number] IMPRESSION: 1. No significant carotid artery stenosis. 2. Prominent vascular loop in the anterior LEFT middle cranial fossa has been present since 2014. 3. No acute intracranial hemorrhage. 4. Hypoplastic or absent RIGHT P-comm, normal variant.
[2020-12-20] MEDS: iohexol 350 mg/mL 100 mL Btl IV (08:52)
== END 2020-12-20 08:00 | disposition home or self-care (01) ==
PROVIDERS: PCP Family Medicine; Visit Provider Specialist
DX: G45.9 Transient cerebral ischemic attack, unspecified (principal)
CPT/HCPCS: 70496; 70498; 87635; Q9967

== ENCOUNTER 2020-12-25 07:15 | Day surgery (SDC) | payer MEDICARE, MEDICAID, SELFPAY ==
[2020-12-23 11:07] VITALS: BMI 29.2
--- NOTE | 2020-12-25 07:37 | ANES.PREANE2 ---
Pre-Anesthetic Assessment Pre-Anesthetic Assessment: Height/Weight: Height 1.57 m Weight 72.575 kg Preop Diagnosis: Anorexia, nausea and vomiting Proposed Procedure: Operation Date: 12/25/20 09:30 Proposed Procedures p EGD 89891 R11.2(Not Applicable) - Nathanael Barahona MD Familial anesthetic complications: None Was Beta Christina taken within 24 hours: Yes Was Clonidine taken within 24 hours: N/A Last intake: NPO > 8 hrs Social: Social History: Tobacco and No alcohol Exam: Pre-Anes Outpt Exam: alert, oriented x 3, clear to auscultation bilaterally and regular rate & rhythm Airway: Cervical ROM: WNL (cervical SCS, limited Rotation) MP: 1 Dentition: Chipped and False Pulmonary: Pulmonary: COPD CV/HEM: CV/HEM: HTN Metabolic: Metabolic: DM Neuropsych: Neuropsych: TIA (2 months ago, saw ruddy yesterday and everything was fine) Anesthetic Plan: ASA status: 3 Anesthesia: MAC Risk of > 500 ml blood loss (7ml/kg in children): No PFSH Anesthesia PFSH: Medical History Borderline personality disorder Cervical facet syndrome Chronic hypertension Diagnosed in 2009 and controlled on medication managed by primary care provider Chronic radicular low back pain Has had surgery for chronic lower back pain. Diabetes mellitus Diagnosed in 2014 and she is currently on metformin. She states that her last hemoglobin A1c was high Hypercholesteremia Diagnosed in 2009 and is controlled with medication managed by PMD Long-term current use of opiate analgesic Major depressive disorder, recurrent severe without psychotic features 2014 currently on medication and follows up with [facility] Myalgia No pertinent past medical history Denies: Asthma seizures, DVT/PE PCP: Dr. Coronado Surgical History Hx of cervical spine surgery (~03/24/18) Dr Watts 03/24/18 Comments: Cervical laminectomy for placement of intraspinal, epidural paddle electrode arrays and placement of subcutaneous pulse generator. Hx of cholecystectomy 2011-laparoscopic procedure by Dr. Barahona at [facility] [place] Hx of hysterectomy Had a total abdominal hysterectomy via Pfannenstiel incision for pelvic inflammatory disease per patient. She states that both tubes, uterus and the left ovary were removed. She only has her right ovary remaining at this time. Family History Mother Diabetes Heart disease Hyperlipidemia Brother Hypertension x 2 Sister Breast cancer Diagnose at age 35 Denies family history of Colon cancer Ovarian cancer Anesthesia complication Bleeding disorder Uterine cancer Thyroid condition Stroke Social History Smoking and tobacco status: former smoker Quit status (tobacco): has quit using tobacco Former quit date comment: STOPPED 5 DAYS AGO Second hand smoke exposure: Yes Alcohol intake: never Lives independently: Yes Household members: none Current occupational status: disabled History of recent travel: No Data Anesthesia Cardiac Studies: No Data to Display
[2020-12-25 08:36] VITALS: BP 136/83; PULSE 74; RESP 18; TEMP 36.3; O2SAT 95
--- NOTE | 2020-12-25 08:47 | W.PM.OPSUD ---
Surgery/Procedure H&P Update DATE OF PROCEDURE: December 25, 2020 DATE H&P PERFORMED: 11/27/20 H&P UPDATE INFORMATION: I have reviewed H&P completed within last 30 days, I have examined patient prior to procedure and No changes to prior documentation PREOP DIAGNOSIS: Anorexia, nausea and vomiting PRIMARY INDICATION FOR PROCEDURE: The same PLANNED PROCEDURE: Operation Date: 12/25/20 09:30 Proposed Procedures p EGD 11230 R11.2(Not Applicable) - Nathanael Barahona MD
[2020-12-25] MEDS: sodium chloride 0.9% 1,000 ML 30 ML IV (09:07)
[2020-12-25 09:42] VITALS: BP 134/85; PULSE 81; RESP 16; TEMP 36.3; O2SAT 93
--- NOTE | 2020-12-25 13:13 | ANE.PACU2 ---
Inpatient post-anesthesia follow up: Airway intact: Yes Vital signs: Temperature 97.4 F Pulse Rate 81 Respiratory Rate 16 Blood Pressure 134/85 Pulse Oximetry 93 Oxygen Delivery Me thod Room Air Oxygen Flow Rate Fraction of Inspir ed Oxygen Hydration adequate: Yes Nausea and vomiting: No Pain level: 1 Mental status: Baseline
[2020-12-26 06:49] LABS: H. Pylori / CLO Test Negative
== END 2020-12-25 10:15 | disposition home or self-care (01) ==
PROVIDERS: PCP Family Medicine; Visit Provider Surgery
PROC: 0DJ08ZZ Inspection of Upper Intestinal Tract, Via Natural or Artificial Opening Endoscopic (ICD-10-PCS; CPT 43235; principal; 2020-12-25 09:30)
DX: R63.0 Anorexia (principal); K21.9 Gastro-esophageal reflux disease without esophagitis; K29.70 Gastritis, unspecified, without bleeding; R11.2 Nausea with vomiting, unspecified; Z87.891 Personal history of nicotine dependence; J44.9 Chronic obstructive pulmonary disease, unspecified; I10 Essential (primary) hypertension; E11.9 Type 2 diabetes mellitus without complications; Z86.73 Personal history of transient ischemic attack (TIA), and cerebral infarction without residual deficits
CPT/HCPCS: 43239; 87077; 96360; J2704; J7030

== ENCOUNTER → 2021-01-16 08:05 | Outpatient (BNVA) | payer MEDICARE, MEDICAID, SELFPAY | PROVIDERS: PCP Family Medicine; Visit Provider Nurse Practitioner Psychiatric/Mental Health | DX: F33.2 Major depressive disorder, recurrent severe without psychotic features (principal); F60.3 Borderline personality disorder; F17.210 Nicotine dependence, cigarettes, uncomplicated; E11.9 Type 2 diabetes mellitus without complications; I10 Essential (primary) hypertension | CPT/HCPCS: 99214 ==

== ENCOUNTER → 2021-01-28 09:35 | Outpatient (BNVA) | payer MEDICARE, MEDICAID, SELFPAY | PROVIDERS: PCP Family Medicine; Visit Provider Specialist | DX: G43.711 Chronic migraine without aura, intractable, with status migrainosus (principal); Z86.73 Personal history of transient ischemic attack (TIA), and cerebral infarction without residual deficits; H55.09 Other forms of nystagmus; R26.9 Unspecified abnormalities of gait and mobility; M79.10 Myalgia, unspecified site; F60.3 Borderline personality disorder; M54.16 Radiculopathy, lumbar region; G89.29 Other chronic pain; G37.9 Demyelinating disease of central nervous system, unspecified; F17.210 Nicotine dependence, cigarettes, uncomplicated | CPT/HCPCS: 99214 ==

== ENCOUNTER 2021-02-03 06:00 | Outpatient (RCR) | payer MEDICARE, MEDICAID, SELFPAY | END 2021-02-26 23:59 | disposition home or self-care (01) | LOC: SPT 06:00 | PROVIDERS: PCP Family Medicine; Referring Provider Specialist; Visit Provider Specialist | DX: R26.9 Unspecified abnormalities of gait and mobility (principal) | CPT/HCPCS: 97110; 97112; 97162 ==

== ENCOUNTER → 2021-02-27 10:49 | Outpatient (BNVA) | payer MEDICARE, MEDICAID, SELFPAY | PROVIDERS: PCP Family Medicine; Visit Provider Orthopaedic Surgery | DX: M54.9 Dorsalgia, unspecified (principal) | CPT/HCPCS: 72050 ==

== ENCOUNTER → 2021-03-13 07:32 | Outpatient (BNVA) | payer MEDICARE, MEDICAID, SELFPAY | PROVIDERS: PCP Family Medicine; Visit Provider Nurse Practitioner Psychiatric/Mental Health | DX: F33.2 Major depressive disorder, recurrent severe without psychotic features (principal); F60.3 Borderline personality disorder; F17.210 Nicotine dependence, cigarettes, uncomplicated; E11.9 Type 2 diabetes mellitus without complications; I10 Essential (primary) hypertension | CPT/HCPCS: 99214 ==

== ENCOUNTER 2021-04-24 08:53 | Outpatient (CLI) | payer MEDICARE, MEDICAID, SELFPAY ==
--- NOTE | 2021-04-24 09:03 | MM_ITS ---
WS: [id number] Exam: [place] [id number] Date/Time of Exam: 04/24/2021 9:04 AM Reason For Exam: SCREENING VIEWS: MLO and CC views both breasts. Comparison made with prior exam of 02/01/2020, 11/16/2018, 05/06/2018,. Findings: There was no sign of mass, architectural distortion or suspicious calcification in either breast. Sc attered fibroglandular densities MM/[place] [id number] Impression: BI-RADS: 2-Benign FOLLOW-UP: 1 Year Follow-up This mammogram was also analyzed by the Computer Aided Detection System R2 Imag e Working Second Hand.
== END 2021-04-24 08:54 | disposition home or self-care (01) ==
LOC: RADSHAW 08:58
PROVIDERS: PCP Family Medicine; Visit Provider Family Medicine
DX: Z12.31 Encounter for screening mammogram for malignant neoplasm of breast (principal)
CPT/HCPCS: 77067

== ENCOUNTER → 2021-05-07 10:23 | Day surgery (SDC) | payer MEDICARE, MEDICAID, SELFPAY | PROVIDERS: PCP Family Medicine; Visit Provider Orthopaedic Surgery | DX: Z01.818 Encounter for other preprocedural examination (principal) | CPT/HCPCS: 93005 ==

== ENCOUNTER → 2021-05-08 12:45 | Outpatient (BNVA) | payer MEDICARE, MEDICAID, SELFPAY | PROVIDERS: PCP Family Medicine; Visit Provider Orthopaedic Surgery | DX: Z01.812 Encounter for preprocedural laboratory examination (principal); Z20.822 Contact with and (suspected) exposure to COVID-19 | CPT/HCPCS: 87635 ==

== ENCOUNTER 2021-05-14 11:16 | Observation (INO) | payer MEDICARE, MEDICAID, SELFPAY ==
--- NOTE | 2021-05-07 10:23 | ECG_ITS ---
[facility] Test Date: 2021-05-07 Pat Name: Ruthie Fontenot Department: Room: Gender: Female Order Runner: : 1955 Requested By: Mel Underwood Order Number: [id number] Joshua MD: La Mai M.D. Measurements Intervals Drummond Rate: 61 P: 25 AR: 168 QRS: 26 QRSD: 85 T: 26 QT: 441 QTc: 447 Interpretive Statements SINUS RHYTHM Compared to ECG 11/11/2020 13:28:52 No significant changes Electronically Signed On 05-08-2021 10:38:55 CDT by La Mai M.D. [id number]
[2021-05-07 10:24] VITALS: BMI 29.2
--- NOTE | 2021-05-07 10:47 | ANES.PREANE2 ---
Pre-Anesthetic Assessment Pre-Anesthetic Assessment: Height/Weight: Height 1.57 m Weight 72.575 kg Preop Diagnosis: Anorexia, nausea and vomiting Proposed Procedure: Operation Date: 05/14/21 12:00 Proposed Procedures p ACDF C5/6 95423 06517 04214 53285 C6/7 10497, 99295 M48.02(Not Applicable) - Ghanshyam Krishnamurthy, Familial anesthetic complications: None Social: Social History: No alcohol Comment: former smoker Exam: Pre-Anes Outpt Exam: alert, oriented x 3, clear to auscultation bilaterally and regular rate & rhythm Airway: MP: 1 Dentition: Chipped and False Pulmonary: Pulmonary: COPD CV/HEM: CV/HEM: HTN Metabolic: Comments: not diabetic per patient Musc/skel: Comments: cervical scs Neuropsych: Neuropsych: TIA Anesthetic Plan: ASA status: 3 Anesthesia: General Risk of > 500 ml blood loss (7ml/kg in children): No PFSH Anesthesia PFSH: Medical History Borderline personality disorder Cervical facet syndrome Chronic hypertension Diagnosed in 2009 and controlled on medication managed by primary care provider Chronic radicular low back pain Has had surgery for chronic lower back pain. Diabetes mellitus Diagnosed in 2014 and she is currently on metformin. She states that her last hemoglobin A1c was high Gastritis GERD (gastroesophageal reflux disease) Hypercholesteremia Diagnosed in 2009 and is controlled with medication managed by PMD Long-term current use of opiate analgesic Major depressive disorder, recurrent severe without psychotic features 2014 currently on medication and follows up with [facility] Myalgia No pertinent past medical history Denies: Asthma seizures, DVT/PE PCP: Dr. Coronado Surgical History Hx of cervical spine surgery (~03/24/18) Dr Watts 03/24/18 Comments: Cervical laminectomy for placement of intraspinal, epidural paddle electrode arrays and placement of subcutaneous pulse generator. Hx of [place]ole[place]ectomy [place] [facility] [place]x of hysterectomy Had a total abdominal hysterectomy via Pfannenstiel incision for pelvic inflammatory disease per patient. She states that both tubes, uterus and the left ovary were removed. She only has her right ovary remaining at this time. Family History Mother Diabetes Heart disease Hyperlipidemia Brother Hypertension x 2 Sister Breast cancer Diagnose at age 35 Denies family history of Colon cancer Ovarian cancer Anesthesia complication Bleeding disorder Uterine cancer Thyroid condition Stroke Social History Smoking and tobacco status: current every day smoker (currently trying to stop smoking 1/2 pack per day ) Second hand smoke exposure: Yes Alcohol intake: never Lives independently: Yes Household members: none Current occupational status: disabled History of recent travel: No Data Anesthesia Cardiac Studies: No Data to Display
[2021-05-07 11:45] LABS: Anion Gap 14.6 (5-19); Blood Urea Nitrogen 7 mg/dL (8-23); Calcium 8.9 mg/dL (8.5-10.5); Carbon Dioxide 31 mmol/L (22-29); Chloride 96 mmol/L (98-107); Creatinine Clr Calc Pharmacy 63.6551; Glomerular Filtration Rate 123.1 mL/min (90-130); Glucose 96 mg/dL (65-115); Osmolality Calculated 284 mOsm/kg (285-295); Potassium 3.6 mmol/L (3.5-5.1); Sodium 138 mmol/L (136-145)
[2021-05-14] VITALS (15 sets, daily range): BP systolic 118–158; BP diastolic 60–82; PULSE 58–74; RESP 11–21; TEMP 36–36.6; O2SAT 91–98
--- NOTE | 2021-05-14 | SCC_ITS ---
Procedure Done: 1. Anterior diskectomy C5/6 2. Anterior discectomy C6/7 3. Insertion of cage C5/6 4. Insertion of Cage C6/7 5. Instrumentation with anterior plate from C5-C7 6. Use of allograft 23.6 seconds of fluoroscopic guidance, for a cumulative dose of 2.22 mGy, was provided to Dr. Krishnamurthy by the radiology department. C-arm images of the cervical spine were saved for the patient's permanent record. ANNAMARIED
--- NOTE | 2021-05-14 | XR_ITS ---
WS: [id number] XR cervical spine 3V* [id number] REASON FOR EXAM: ACDF FINDINGS: Multiple lateral and AP images of the cervical spine in surgery. Images demonstrate the placement of interbody fusion devices at C5-C6 and C6-C7 with anterior plate a nd screw fixation. The position and alignment of the surgical appliances are appropriate. XR/XR cervical spine 3V* [id number] IMPRESSION: Anterior cervical discectomy and fusion without abnormality as above.
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
[2021-05-14] MEDS: sodium chloride 0.9% 1,000 ML 30 ML IV (06:48)
--- NOTE | 2021-05-14 06:49 | P.HPUD_ITS ---
Surgery/Procedure H&P Update DATE OF PROCEDURE: May 14, 2021 DATE H&P PERFORMED: 05/14/21 PREOP DIAGNOSIS: cervical spondylosis with myelopathy PLANNED PROCEDURE: Operation Date: 05/14/21 07:00 Proposed Procedures p ACDF C5/6 04091 14499 31412 80968 C6/7 53935, 18860 M48.02(Not Applicable) - Ghanshyam Krishnamurthy DO
--- NOTE | 2021-05-14 06:49 | W.PM.OPSUD ---
Surgery/Procedure H&P Update DATE OF PROCEDURE: May 14, 2021 DATE H&P PERFORMED: 05/14/21 PREOP DIAGNOSIS: cervical spondylosis with myelopathy PLANNED PROCEDURE: Operation Date: 05/14/21 07:00 Proposed Procedures p ACDF C5/6 71956 18443 93684 13705 C6/7 68926, 25435 M48.02(Not Applicable) - Ghanshyam Krishnamurthy DO
[2021-05-14] MEDS: clindamycin 900 MG/50 ML PREMIX 100 MG IV (06:56)
--- NOTE | 2021-05-14 06:56 | P.ANESUD_ITS ---
Pre-Anesthetic Update Pre-Anesthetic Assessment: Date of Surgery/Procedure: 05/14/21 Preop Chandni gnosis: cervical spondylosis with myelopathy Proposed Procedure: Operation Date: 05/14/21 07:00 Proposed Procedures p ACDF C5/6 77018 04553 83257 76204 C6/7 58064, 08945 M48.02(Not Applicable) - Ghanshyam Krishnamurthy, DO Any changes to Pre-Anesthetic Assessment?: No Last Intake: Intake Last Liquid Date 05/13/21 Last Liquid Time 19:00 Last Solid Date 05/13/21 Last Solid Time 18:00 Vitals: Temperature 97 F L 05/14/21 06:20 Temperature Source Temporal Artery S can 05/14/21 06:20 Pulse Rate 58 L 05/14/21 06:20 Respiratory Rate 18 05/14/21 06:20 Blood Pressure 128/60 05/14/21 06:20 Blood Pressure Maribell n 82 05/14/21 06:20 Pulse Oximetry 97 05/14/21 06:20 Oxygen Delivery Me thod 05/14/21 06:20 Exam: Pre-Anes Outpt Exam: alert, oriented x 3, clear to auscultation bilaterally and regular rate & rhythm Cardiac Studies: No Data to Display
--- NOTE | 2021-05-14 09:15 | P.OP_ITS ---
Operative Report Date of procedure: May 14, 2021 Pre-op Diagnosis: cervical spondylosis with myelopathy Post-op diagnosis: same Procedure Done: 1. Anterior diskectomy C5/6 2. Anterior discectomy C6/7 3. Insertion of cage C5/6 4. Insertion of Cage C6/7 5. Instrumentation with anterior plate from C5-C7 6. Use of allograft Surgeon: Ghanshyam Krishnamurthy Anesthesia: General Estimated blood loss (mL): 50 Condition: stable Disposition: PACU Procedure: 1. Anterior diskectomy C5/6 2. Anterior discectomy C6/7 3. Insertion of cage C5/6 4. Insertion of Cage C6/7 5. Instrumentation with anterior plate from C5-C7 6. Use of allograft The patient was taken to the operating room, where he underwent general endotracheal anesthesia without complications. He was then positioned supine on the operating table, and all areas of impingement were well padded. The arms were carefully padded and tucked at his sides. A roll was placed between the shoulder blades.. An x-ray was done to determine the appropriate level for the skin incision. The entire neck was then sterilely prepped and draped in the usual fashion. Neuromonitoring was attached prior to prepping. A transverse skin incision was made and carried down to the platysma muscle. This was then split in line with its fibers. Blunt dissection was carried down medial to the carotid sheath and lateral to the trachea and esophagus until the anterior cervical spine was visualized. A needle was placed into a disc and an x-ray was done to determine its location. The longus colli muscles were then elevated bilaterally with the electrocautery unit. Self-retaining retractors were placed deep to the longus colli muscle. Attention was brought to the C5/6 level that was confirmed on x-ray. The microscope was then brought in. A radical anterior discectomies were performed at C5/6. This included complete removal of the anterior annulus, nucleus, and posterior annulus. The posterior longitudinal ligament was removed as were the posterior osteophytes. Foraminotomies were then accomplished bilaterally. This was done using a high speed juan manuel, kerrison rongeurs and curretes Once all of this was accomplished, the curved currette was used to check for any residual compression. The central canal was wide open as were the foramen. A high-speed bur was used to remove the cartilaginous endplates above and below the interspace. Bleeding cancellous bone was exposed. The disc space were measured and appropriate size cage were placed sterilely onto the field. Allograft graft was packed into the cages. The cage was then placed and there was good juxtaposition against the bleeding decorticated surfaces and good di straction of each interspace. Attention was brought to the next interspace. Attention was brought to the C6/7 level that was confirmed on x-ray. A caspar pin was placed into the C6 vertebrae and the C7 vertebrae. The disk space was then distracted. The microscope was then brought in. A radical anterior discectomies were performed at C6/7. This included complete removal of the anterior annulus, nucleus, and posterior annulus. The posterior longitudinal ligament was removed as were the posterior osteophytes. Foraminotomies were then accomplished bilaterally. This was done using a high speed juan manuel, kerrison rongeurs and curretes Once all of this was accomplished, the curved currette was used to check for any residual compression. The central canal was wide open as were the foramen. A high-speed bur was used to remove the cartilaginous endplates above and below the interspace. Bleeding cancellous bone was exposed. The disc space were measured and appropriate size cage were placed sterilely onto the field. Allograft graft was packed into the cages. The cage was then placed and there was good juxtaposition against the bleeding decorticated surfaces and good distraction of each interspace. Attention was brought to the next interspace. The Ogden pins were removed. Bone wax was used to prevent any bleeding from occurring at the pin sites. The appropriate size anterior cervical locking plate was chosen and bent into gentle lordosis. One screws were then placed into each of the vertebral bodies at C5, C6 and C7. There was excellent purchase. A final x-ray was done confirmi ng good position of the hardware and Cages. The locking screws were then applied, also with excellent purchase. Following a final copious irrigation, there was good hemostasis and no dural leaks. The carotid pulse was strong. The wounds were then closed in layers using 2-0 Vicryl suture for the platysma muscle, 2-0 Vicryl suture for the subcutaneous tissue, and 4-0 monocryl suture in a subcuticular skin closure. Glue was placed followed by application of a sterile dressing. The drain was hooked to bulb suction. A soft collar was applied. The patient was then carefully returned to the supine position on his hospital bed where he was reversed and extubated and taken to the recovery room having tolerated the procedure well.
[2021-05-14] MEDS: HYDROcodone-acetaminophen 5-325 mg Tablet PO ×2 (11:42→18:13)
[2021-05-14] MEDS: lactated ringers 1,000 ML 90 ML IV ×2 (11:43→23:30)
--- NOTE | 2021-05-14 11:51 | P.CONIM_ITS ---
Providers/Reason For Consult Consulting Physician/Specialty*: Allan Meza MD, hospitalist Reason for Consult*: Medical management Requesting Physician: Dr. Krishnamurthy Attending Physician: Ghanshyam Krishnamurthy DO Primary Care Provider: Darryl Coronado MD History of Present Illness History of Present Illness Ruthie Fontenot is a 66 year old female who presented to the hospital for ACDF C5/6 and C6/7. She underwent surgery this morning by Dr. Krishnamurthy for her cervical spondylosis and myelopathy causing significant pain. She reports she is doing well postoperatively and has no particular concerns. She confirmed that she was diabetic in the past but now only follows a diet and needs no medications as she has lost significant weight. She denies any cardiac or pulmonary disease. Review of Systems General: Reports: 10 or more systems reviewed and unremarkable except in HPI and below Const: Denies: fever(s) Eyes: Denies: change in vision ENMT: Denies: throat pain Card: Denies: chest pain Resp: Denies: dyspnea GI: Denies: abdominal pain : Denies: flank pain Musc: Reports: neck pain Skin/Breast: Denies: rash Neuro: Denies: headache(s) (History of migraines) Psych: Reports: depression (History of depression) Endo: Denies: polyuria Lake/Lymph: Denies: easy bruising All/Imm: Denies: urticaria Meds/Allergies Home Medications and Allergies Home Medications Medication Instructions Recorded Confirmed Last Taken Type acyclovir 400 mg tablet 400 mg PO BID@0800,199909/28/19 05/07/21 12/24/20 History amlodipine 5 mg tablet 5 mg PO DAILY@79909/28/19 05/14/21 05/14/21 History atorvastatin 10 mg tablet 10 mg PO BEDTIME@1999 tab 09/28/19 05/14/21 05/13/21 History hydrochlorothiazide 12.5 mg tablet 12.5 mg PO DAILY@79909/28/19 05/14/21 05/13/21 History losartan 50 mg tablet 50 mg PO DAILY@79909/28/19 05/14/21 05/13/21 History nystatin 100,000 unit/gram topical 1 applic TOPICAL DAILY PRN 04/17/20 05/07/21 12/24/20 History powder alendronate 70 mg tablet 70 mg PO .WEEKLY tab 06/27/20 05/14/21 05/14/21 History ondansetron HCl 4 mg tablet 4 mg PO Q6H 08/27/20 05/14/21 05/14/21 History acetaminophen [Tylenol] 325 mg PO QID PRN 11/11/20 05/14/21 05/13/21 History oxybutynin chloride [Ditropan XL] 5 mg PO DAILY@0800 11/11/20 05/14/21 05/13/21 History propranolol 10 mg PO BID@0800,199911/11/20 05/14/21 05/13/21 History erenumab-aooe 140 mg/mL 140 mg SUBCUT ONCE 30 Days #30 ml 12/10/20 05/07/21 12/18/20 Rx subcutaneous auto-injector primidone 50 mg tablet See Rx Instructions .ROUTE 12/24/20 05/07/21 12/24/20 Rx .COMPLEX #180 tablet sertraline 50 mg tablet 50 mg PO .morning #90 tab 01/16/21 05/14/21 05/13/21 Rx trazodone 100 mg tablet 200 mg PO .8 pm #180 tab 01/16/21 05/14/21 05/13/21 Rx pantoprazole 40 mg tablet,delayed 40 mg PO DAILY 30 Days #30 tab 04/07/21 05/14/21 05/13/21 Rx release dalfampridine 10 mg 10 mg PO Q12H #60 tab 05/12/21 05/13/21 Rx tablet,extended release,12 hr Bone Growth Stimulator E0748 #1 ea 05/13/21 Unknown Rx Allergies Allergy/AdvReac Type Severity Reaction Status Date / Time Penicillins Allergy HIVES Verified 02/27/21 10:34 latex AdvReac rash Verified 02/27/21 10:34 quetiapine [From Seroquel] AdvReac ADR-Hallucinating Verified 02/27/21 10:34 / DIZZINESS Current Medications Current Medications Generic Name Dose Route Start Last Admin Trade Name Freq PRN Reason Stop Dose Admin Hydrocodone Bitart/Acetaminophen 1 - 2 tab 05/14/21 09:01 05/14/21 11:42 Hydrocodone-Acetaminophen 5-325 Mg Tablet PO 1 tab Q4H PRN Administration MODERATE TO SEVERE PAIN Lactated Ringer's 1,000 mls @ 90 mls/hr 05/14/21 09:15 05/14/21 11:43 Lactated Ringers IV 90 mls/hr .[id number] ELIEZER Administration PFSH Acute PFSH: Medical History Borderline personality disorder Cervical facet syndrome Chronic hypertension Diagnosed in 2009 and controlled on medication managed by primary care provider Chronic radicular low back pain Has had surgery for chronic lower back pain. Diabetes mellitus Diagnosed in 2014 and she is currently on metformin. She states that her last hemoglobin A1c was high Gastritis GERD (gastroesophageal reflux disease) Hypercholesteremia Diagnosed in 2009 and is controlled with medication managed by PMD Long-term current use of opiate analgesic Major depressive disorder, recurrent severe without psychotic features 2014 currently on medication and follows up with [facility] Myalgia No pertinent past medical history Denies: Asthma seizures, DVT/PE PCP: Dr. Coronado Surgical History Hx of cervical spine surgery (~03/24/18) Dr Watts 03/24/18 Comments: Cervical laminectomy for placement of intraspinal, epidural paddle electrode arrays and placement of subcutaneous pulse generator. Hx of cholecystectomy 2011-laparoscopic procedure by Dr. Barahona at [facility] [place] Hx of hysterectomy Had a total abdominal hysterectomy via Pfannenstiel incision for pelvic inflammatory disease per patient. She states that both tubes, uterus and the left ovary were removed. She only has her right ovary remaining at this time. Family History Mother Diabetes Heart disease Hyperlipidemia Brother Hypertension x 2 Sister Breast cancer Diagnose at age 35 Denies family history of Colon cancer Ovarian cancer Anesthesia complication Bleeding disorder Uterine cancer Thyroid condition Stroke Social History Smoking and tobacco status: current every day smoker (currently trying to stop smoking 1/2 pack per day ) Second hand smoke exposure: Yes Alcohol intake: never Lives independently: Yes Household members: none Current occupational status: disabled History of recent travel: No Supplemental PFSH Information: She reports she stopped smoking prior to the surgery. Vitals/I&O/Wt Last Vital Signs Temp 97.1 F L 09/15/21 10:00 Pulse 70 05/14/21 10:15 Resp 18 05/14/21 10:15 BP 129/72 05/14/21 10:15 Pulse Ox 97 05/14/21 10:15 05/13/21 05/14/21 05/14/21 22:59 06:59 14:59 Intake Total 845.5 / 845.5 Output Total 50 / 50 Balance 795.5 / 795.5 Physical Exam Narrative: EXAM NARRATIVE: General exam is a white female, alert, and in neck brace with no active complaints HEENT: Pupils equally round. Oropharynx clear. Neck is currently in a brace Cardiovascular regular rate and rhythm without murmur Lungs clear no wheezing or crackles Abdomen is soft with positive bowel sounds. No obvious organomegaly exam is deferred Extremities no cyanosis clubbing or edema Neuro no obvious focal deficits. Excellent lower extremity strength and no foot drop Skin no rash. Data Other Data: Other data: Recent previous EKG demonstrates normal sinus rhythm, normal rate and no acute changes. A&P Assessment and plan (1) Cervical stenosis of spinal canal: Directly postoperative from discectomy and fusion C5-C6/C6-7 Surgery primary Estimated blood loss minimal, no complications during surgery Status: Acute (2) Diabetes mellitus: Consistent carb diet No need for Accu-Cheks or sliding scale according to history and recent lab work Status: Acute (3) Chronic hypertension: Continue her chronic antihypertensives including Norvasc, losartan Status: Acute (4) Hypercholesteremia: Continue statin Status: Acute Additional A&P Information Multiple other medical problems as noted in past medical history Full code I do not see a compelling reason for routine a.m. lab unless clinical exam or course overnight would dictate. SCDs for DVT prophylaxis. In talking to the surgeon there was a slight amount of oozing at her incision site so we will avoid pharmacologic anticoagulants currently. Consult Attestations Medical Necessity Statement: As per primary Time Spent in Patient Care: Greater than 35 minutes Coding Level of Care Code Acute Spinning Lathe [employer]draulic for Teresa Fwnalini Diagnoses Cervical stenosis of spinal canal M48.02 Diabetes mellitus E11.9 Chronic hypertension I10 Hypercholesteremia E78.00
[2021-05-14] MEDS: ketorolac 30 mg/mL INJ IVP (12:48)
--- NOTE | 2021-05-14 13:00 | PC.NURSE ---
1115----Patient transported via wheelchair to room 272. report given to CARMITA Diaz.
--- NOTE | 2021-05-14 14:18 | ANE.PACU2 ---
Inpatient post-anesthesia follow up: Airway intact: Yes Vital signs: Temperature 97.5 F Pulse Rate 74 Respiratory Rate 15 Blood Pressure 139/76 Pulse Oximetry 95 Oxygen Delivery Me thod Room Air Oxygen Flow Rate 2 Fraction of Inspir ed Oxygen Hydration adequate: Yes Nausea and vomiting: No Pain level: 2 Mental status: Baseline
--- NOTE | 2021-05-14 14:22 | PC.RESP ---
RT Shift Note Frequent safety and respiratory rounds continue. Orders completed as indicated. Patient monitored pre and post treatments throughout shift. Patient [Did.] tolerate treatments appropriately. Condition .DidNotChange]. Patient and/or instruments sales representative educated on respiratory treatment and medications. Patient and/or instruments sales representative [verbalized understanding Will continue to monitor patient progress.
[2021-05-14] MEDS: clindamycin 600 MG/50 ML PREMIX 100 MG IV ×2 (14:32→23:29)
[2021-05-14] MEDS: docusate sodium 100 mg Capsule PO (18:13)
[2021-05-14] MEDS: trazodone 100 mg Tablet 200 MG PO (20:39)
[2021-05-14] MEDS: acyclovir 400 mg Tablet PO (20:39)
[2021-05-14] MEDS: atorvastatin 40 mg Tablet 20 MG PO (20:40)
[2021-05-15 03:37] VITALS: BP 125/71; PULSE 52; RESP 16; TEMP 36.7; O2SAT 93
[2021-05-15] MEDS: HYDROcodone-acetaminophen 5-325 mg Tablet PO ×2 (04:14→08:39)
[2021-05-15] MEDS: clindamycin 600 MG/50 ML PREMIX 100 MG IV (06:19)
[2021-05-15 07:29] VITALS: BP 130/76; PULSE 62; RESP 16; TEMP 36.5; O2SAT 94
--- NOTE | 2021-05-15 08:01 | P.DS_ITS ---
Discharge Providers Date of Admission: 05/14/21 11:16 Date of Discharge: May 15, 2021 Attending Provider at Admission: Ghanshyam Krishnamurthy DO Attending Provider at Discharge: Ghanshyam Krishnamurthy DO Primary Care Provider: Darryl Coronado MD Diagnoses at Discharge Discharge Diagnosis (1) Cervical stenosis of spinal canal: Status: Acute (2) Diabetes mellitus: Status: Acute Permanent problem details: Diagnosed in 2014 and she is currently on metformin. She states that her last hemoglobin A1c was high (3) Chronic hypertension: Status: Acute Permanent problem details: Diagnosed in 2009 and controlled on medication managed by primary care provider (4) Hypercholesteremia: Status: Acute Permanent problem details: Diagnosed in 2009 and is controlled with medication managed by PMD Reason for Visit Reason for Visit: ACDF C5/6 [id number] 84801 C6/7 Hospital Course Hospital Course Patient was admitted on 05/14/2021. I admitted her for the purposes of watching her because during surgery she had more bleeding than any of my typical ACDF procedures. I wanted to make sure she did not get a hematoma so I put a drain in. At this point her hospital course was uneventful she was fine this morning drain had minimal output and drain was pulled and she is discharged on 05/15/2021. Physical Exam Narrative: EXAM NARRATIVE: pain controlled, difficulty swallowing, otherwise in good spirits Discharge Data Data Completed and Pending: Completed Studies During Hospitalization Category Date Time Status XR cervical spine 3V* 99522 Routine Exams 05/14/21 Completed Pending at discharge Category Date Time Status C-arm Fluoroscopy 59538 Routine Exams 05/14/21 06:00 Taken Vitals: Last Vital Signs Temp 97.7 F 05/15/21 07:29 Pulse 62 05/15/21 07:29 Resp 16 05/15/21 07:29 BP 130/76 05/15/21 07:29 Pulse Ox 94 05/15/21 07:29 Discharge Plan Discharge Patient Disposition: Home Condition: Stable Prescriptions: New hydrocodone-acetaminophen 10-325 mg tablet 1 - 2 tab PO Q4H PRN (Reason: pain) 7 Days RF: 0 hydrocodone-acetaminophen 10-325 mg tablet 1 tab PO Q4H PRN (Reason: pain) 7 Days Qty: 40 RF: 0 Continued hydrochlorothiazide 12.5 mg tablet 12.5 mg PO DAILY@0800 RF: 0 losartan 50 mg tablet 50 mg PO DAILY@0800 RF: 0 amlodipine 5 mg tablet 5 mg PO DAILY@0800 RF: 0 acyclovir 400 mg tablet 400 mg PO BID@799,1999 RF: 0 atorvastatin 10 mg tablet 10 mg PO BEDTIME@1999 RF: 0 ondansetron HCl [Zofran] 4 mg tablet 4 mg PO Q6H RF: 0 nystatin 100,000 unit/gram powder 1 applic TOPICAL DAILY PRN (Reason: UNKNOWN) RF: 0 alendronate [Fosamax] 70 mg tablet 70 mg PO .WEEKLY RF: 0 trazodone 100 mg tablet 200 mg PO .8 pm Qty: 180 RF: 2 sertraline [Zoloft] 50 mg tablet 50 mg PO .morning Qty: 90 RF: 2 Aimovig Autoinjector 140 mg/mL auto-injector 140 mg SUBCUT ONCE 30 Days Qty: 30 RF: 6 primidone 50 mg tablet See Rx Instructions .ROUTE .COMPLEX Qty: 180 RF: 1 Protonix 40 mg tablet,delayed release (DR/EC) 40 mg PO DAILY 30 Days Qty: 30 RF: 2 dalfampridine 10 mg tablet extended release 12 hr 10 mg PO Q12H Qty: 60 RF: 5 (DME) Bone Growth Stimulator E0748 See Rx Instructions .Route .MEDSUPPLY Qty: 1 RF: 0 acetaminophen [Tylenol] 325 mg Tablet 325 mg PO QID PRN (Reason: Pain) RF: 0 propranolol 10 mg tablet 10 mg PO BID@08,1999 RF: 0 oxybutynin chloride [Ditropan XL] 5 mg tablet extended release 24hr 5 mg PO DAILY@0800 RF: 0 Discharge Orders: Discharge Order (Routine); Ordered 05/15/21 Ordered By: Ghanshyam Krishnamurthy Discharge Diet: Advance as tolerated Discharge Activity: Limit activity as instructed Patient Instructions: Opioid Safety Activity Restrictions/Additional Instructions: Thank you for choosing [facility] for your care! The following is a list of instructions, from your provider, to follow upon your discharge to ensure you have the optimal recovery from your recent injury or surgery. Anterior Cervical Discectomy and Fusion: What to Expect at Home Your Recovery Follow-up care is a cortes part of your treatment and safety. Be sure to make and go to all appointments, and call your doctor if you are having problems. If you do not already have a follow-up appointment made, call office in the next 1-3 days to make follow up appointment for 2 weeks at [phone]. It is also a good idea to know your test results and keep a list of the medicines you take. You can expect your neck to feel stiff or sore after surgery. This should improve in the weeks after surgery. But it may take 4 to 6 months for you to get better completely. You may have trouble sitting or standing in one position for very long and may need pain medicine in the weeks after your surgery. It may take 4 to 6 weeks to get back to your usual activities, but it may depend on what kind of surgery you had. Your throat will feel sore and it may be difficult to swallow for the first 3 days after your surgery. As long as you can get liquids down without difficulty, this should slowly improve, otherwise call our office or seek medical attention if it becomes increasingly difficult to get anything down including liquids. Avoid hot liquids for first 3-5 days. Soothing foods/liquids such as jello, pudding, and luke warm soups are recommended until swallowing improves. Staying elevated will also help, it's advised you keep propped up at while sleeping to help reduce the swelling. You may use an ice pack directly on your incision or around it on the front of your neck, using a cloth to protect your skin; and a heating pad to the back of your neck as needed. Do not use over the counter anti-inflammatory medications (Ibuprofen, Motrin, Aleve, Advil, etc) Taking these meds after having a fusion can delay fusion rates, we recommend you avoid them for the first 3 [address] after your surgery[address] Krishnamurthy may advise you to work with a physical therapist to strengthen the muscles around your neck and back - this will be discussed at your follow - up appointments. The pain or numbness you were having in your arms before surgery should get better or go away completely. This care sheet gives you a general idea about how long it will take for you to recover. But each person recovers at a different pace. Follow the steps below to get better as quickly as possible. How can you care for yourself at home? Activity ? Rest when you feel tired. Getting enough sleep will help you recover. ? Try to walk each day. Start by walking a little more than you did the day before. Bit by bit, increase the amount you walk. Walking boosts blood flow and helps prevent pneumonia and constipation. Walking may also decrease your muscle soreness after surgery. ? No lifting anything that is more that 5 pounds. This may include heavy grocery bags and milk containers, a heavy briefcase or backpack, cat litter or dog food bags, a child, or a vacuum immersion metal cleaner. ? Avoid strenuous activities, such as bicycle riding, jogging, weightlifting, or aerobic exercise, until your doctor says it is okay. ? Do not drive until your follow-up visit after your surgery, or until your doctor says it isokay. ? Avoid taking long car trips for 2 to 4 weeks after surgery. Your neck may become tired and painful from sitting too long in one position. ? You will probably need to take 4 to 6 weeks off from work. It depends on the type of work you do and how you feel. ? You may have sex as soon as you feel able, but avoid positions that put stress on your neck or cause pain. Diet ? You can eat your normal diet. If your stomach is upset, try bland, low-fat foods like plain rice, broiled chicken, toast, and yogurt ? Drink plenty of fluids. If you have kidney, heart, or liver disease and have to limit fluids, talk with your doctor before you increase the amount of fluids you drink. ? You may notice that your bowel movements are not regular right after your surgery. This is common. Try to avoid constipation and straining with bowel movements. You may want to take a fiber supplement every day. If you have not had a bowel movement after a couple of days, ask your doctor about taking a mild laxative. Medicines ? Take pain medicines exactly as directed. 1. If Dr. Krishnamurthy gave you a prescription medicine for pain, take lt as prescribed. 2. Do not take two or more pain medicines at the same time unless the doctor told you to. Many pain medicines have acetaminophen, which is Tylenol. Too much acetaminophen {Tylenol) can be harmful. 3. If you think your pain pill is making you sick to your stomach: 4. Take your pills after meals (unless your doctor has told you not to). 5. Ask your Dr. for a different pain pill. Incisioncare ? Remove your dressing 48hours after your surgery. Ok to shower and get the incision wet. Do not overtly wash your incision. When done, pad dry, leave open to air thereafter. Avoid creams and ointments directly on your incision. ? Your sutures in the incision will dissolve and fall out on their own. ? Keep the area clean and dry. You may cover it with a gauze bandage if it weeps or rubs against clothing; if you choose to do this, change the dressing everyday. Other instructions ? Use a heating pad, hot water bottle, or gentle massage on your back to reduce stiffness. Avoid putting heat on your incision When should you call for help? ? Call 911 anytime you think you may need emergency care. For example, call if: ? You pass out (lose consciousness). ? You have sudden chest pain and shortness of breath, or you cough upblood. ? You cannot swallow. ? You have severe pain in your neck or back. ? Call your Dr. or seek immediate medical care if: ? You have pain that does not get better after you take pain pills. ? You have loose stitches, or your incision comes open. ? You have blood or fluid draining from the incision. ? You have signs of infection, such as: 1. Increased pain, swelling, warmth, or redness. 2. Red streaks leading from the site. 3. Pus draining from the site. 4. Swollen lymph nodes in your neck or armpits. 5. A fever. ? You have severe pain in your arms. ? You have new or increased weakness or numbness in your arms. ? Watch closely for any changes in your health, and be sure to contact your doctor if: ? You do not have a bowel movement after taking a laxative. Discharge Attestations Time Spent in Discharge Care*: less than 30 min Quality Metrics Clinical Quality Measures During this hospital stay, did patient experience: None Coding Level of Care Code Acute [facility] note Diagnoses Cervical stenosis of spinal canal M48.02 Diabetes mellitus E11.9 Chronic hypertension I10 Hypercholesteremia E78.00
[2021-05-15 08:36] VITALS: BP 130/76
[2021-05-15] MEDS: oxybutynin chloride XL 5 MG TABLET PO (08:36)
[2021-05-15] MEDS: amlodipine 5 mg Tablet PO (08:36)
[2021-05-15] MEDS: losartan 50 mg Tablet PO (08:36)
[2021-05-15] MEDS: sertraline 50 mg Tablet PO (08:36)
[2021-05-15] MEDS: hydroCHLOROthiazide 25 mg Tablet 12.5 MG PO (08:36)
[2021-05-15] MEDS: docusate sodium 100 mg Capsule PO (08:40)
[2021-05-15] MEDS: primidone 50 mg Tablet 100 MG PO (08:43)
--- NOTE | 2021-05-15 10:00 | PC.NURSE ---
IV removed at this time and patient tolerated well. Patient is A&Ox4. Respirations even and non-labored on room air. Discharge instructions reviewed with patient and family at bedside. Patient and family verbalized understanding of follow up appointments and pain medication use. Patient wheel chaired to private car with all of her belongings.
--- NOTE | 2021-05-15 10:18 | PC.CHAP ---
Pastoral Care Encounter/Spiritual Assessment Type of Contact [] Declined shuttle fixer visit [] Patient/Family/Request visit [] Outpatient visit [] Follow-up visit [] Physician referral [] Code/Alert [x] Routine visit [] Staff referral [] Actively dying [] Patient sleeping [] Family support [] [] Out of room [] Palliative care [] [x] Receiving care in room [] Pre-surgical visit [] Trauma [] Long length of stay [] ICU visit [] Other: Relational/Emotional Strength [x] Patient feels connected with others/family/visitors/staff [] Distress [] Loneliness/isolation [] Abandonment Spirituality of Patient [x] Person of Blanca [] Attends Christianity of their [place] [x] Believes in Prayer [] Reads Bible or Hindu materials [] There are Spiritual issues to be addressed Cad[employer] Liquor Maker Interventions [x] Prayer [x] Active listening [x] Non-anxious presence [x] Spiritual/emotional support [] Crisis/trauma care [x] Spiritual counseling [] Bereavement support [] Provided bereavement packet [] Provided Bible/devotional materials [] Provided toy/stuffed animal, coloring book to patient or family member [] Provided Communion [] Anointing/[place] [] Salvation [x] Completed spiritual assessment [] Other: Impact on Illness or Injury [] Angry [] Fearful [x] Anxious [] Often cries [] Exhaustion [] Unable to work [] Unable to attend judaism [] Unable to walk/stand [] Unable to read [] Unable to drive [] Unable to eat/drink [] Unable to sleep [] Unable to be with family [] Patient intubated [] Other: Summary has brace on neck feels good has good attitude and is going home today Time spent with patient 10 mins
[2021-05-15 10:47] VITALS: BP 130/76; PULSE 70; RESP 16; TEMP 36.8; O2SAT 94
--- NOTE | 2021-05-16 10:08 | PC.SOCIAL ---
discharge follow up call made. spoke with patient. patient reports she is feeling much better today. taking hydrocodone with pain relief. advised patient to take stool softner with hydrocodone to prevent constipation. went over dressing instructions,when patient can remove and shower, after care of incision. instructed patient that all activity restrictions are listed in the activity restriction section of discharge, leader writer and patient went over all those instructions. patient verbalizes understanding. patient given follow up date and time with Dr. Krishnamurthy, patient does have transportation to appointment.
--- NOTE | 2021-05-16 16:12 | PC.RESP ---
SMOKING CESSATION INFORMATION SENT TO PATIENT.
== END 2021-05-15 10:00 | disposition home or self-care (01) ==
LOC: MEDSURG 11:16
PROVIDERS: Anesthesiology; Admitting Provider Orthopaedic Surgery; PCP Family Medicine; Visit Provider Orthopaedic Surgery
PROC: 0RB30ZZ Excision of Cervical Vertebral Disc, Open Approach (ICD-10-PCS; CPT 22551; principal; 2021-05-14 07:00)
DX: M47.12 Other spondylosis with myelopathy, cervical region (principal); M48.02 Spinal stenosis, cervical region; E11.9 Type 2 diabetes mellitus without complications; I10 Essential (primary) hypertension; E78.00 Pure hypercholesterolemia, unspecified; K21.9 Gastro-esophageal reflux disease without esophagitis; Z82.49 Family history of ischemic heart disease and other diseases of the circulatory system; Z83.3 Family history of diabetes mellitus; F17.210 Nicotine dependence, cigarettes, uncomplicated; J44.9 Chronic obstructive pulmonary disease, unspecified; Z86.73 Personal history of transient ischemic attack (TIA), and cerebral infarction without residual deficits
CPT/HCPCS: 20930; 22551; 22552; 22845; 22853 ×2; 72040; 76000; 80048; 97110; 97162; 97760; C1713; G0378; J0330; J0360; J1100; J1885; J2405; J2704; J3010; J3490; J7030; J8499; L0174

== ENCOUNTER 2021-05-23 21:11 | Emergency (ER) | payer MEDICARE, MEDICAID, SELFPAY ==
[2021-05-23 21:21] VITALS: BP 164/80; PULSE 71; RESP 16; TEMP 36.7; O2SAT 97; BMI 29.2
--- NOTE | 2021-05-23 21:28 | CTR_ITS ---
PROCEDURE INFORMATION: Exam: CT Neck With Contrast Exam date and time: 05/23/2021 9:28 PM Age: 66 years old Clinical indication: Mass, lump, or swelling in neck; Prior surgery; Surgery type: Fusion. Stimulator. ; Patient HX: Patient underwent anterior cervical fusion nine days ago. Presents today with swelling to incision site. ; Additional info: Rule out postoperative infection anterior neck TECHNIQUE: Imaging protocol: Computed tomography images of the neck with contrast. Radiation optimization: All CT scans at this facility use at least one of these dose optimization techniques: automated exposure control; mA and/or kV adjustment per patient size (includes targeted exams where dose is matched to clinical indication); or iterative reconstruction. Contrast material: OMNI 300; Contrast volume: 95 ml; Contrast route: INTRAVENOUS (IV); COMPARISON: CT angio headneck* [id number] 12/20/2020 8:44 AM RADIATION DOSE METRICS: Total DLP (mGy-cm): 411.21 FINDINGS: Brain: The visible portion of the brain is normal. Orbital cavity: The orbits are unremarkable. Nasopharynx: Unremarkable. Oropharynx: Unremarkable. No significant tonsillar enlargement. Hypopharynx: Unremarkable. Larynx: Unremarkable. Normal epiglottis. Retropharyngeal space: There is trace fluid in the retropharyngeal space on the right. No retropharyngeal abscess. Submandibular/Parotid glands: The parotid glands are normal. The submandibular glands are normal. Thyroid: The thyroid gland is unremarkable. Lymph nodes: There is no cervical or supraclavicular lymphadenopathy. Trachea: The visible portion of the trachea is normal. Lungs: Lung apices are clear. Bones/joints: There is anterior and interbody fusion from C5 through C7 without apparent complications. There are epidural neurostimulator leads posteriorly at C5-C6. Vasculature: The carotid and vertebral arteries and internal jugular veins are unremarkable as visualized. Soft tissues: There is a trace of fluid and gas in the superficial and deep soft tissues at the incision site in the lower neck to the right of midline. There is associated edema along the right aspect the thyroid. There is no organized fluid collection. No discrete hematoma. CT/CT neck w con* [id number] IMPRESSION: Expected postoperative findings in the lower neck. No significant hematoma. No abscess. Radiation Dose CTDIVOL = (mGy): DLP = 411.21 (mGy-cm)
--- NOTE | 2021-05-23 21:31 | W.ED.GENADLT ---
HPI - General Adult General: Chief complaint: Neck Pain/Injury Stated complaint: Post Surgery Knot on Neck Time Seen by Provider: 05/23/21 21:19 History of Present Illness: HPI narrative: Patient is a 66-year-old female who underwent cervical discectomy on 05/14/[address] Krishnamurthy presenting to the emergency room with new anterior neck lump along the surgical incision site. Patient is unsure how long she has noticed the lump because she is wearing a c-collar and occasionally takes it off. She did not notice a lump on Wednesday, but noticed it today when she took off the collar. Patient denies any fever or chills, drooling, difficulty closing mouth, or drainage. Patient reports significant pain along the area and noticed that it is fluctuant. Patient is due to establish post-op care with Dr. Krishnamurthy on 06/03/2021. Onset: unknown Duration: ongoing Location:R anterior neck Severity:moderate Review of Systems Narrative: Constitutional: No fever, no chills. HEENT: No vision changes, +R neck lumb/pain CV: No chest pain, no palpitations PULM: no cough, no dyspnea. GI: No abdominal pain, no N/V/D. : No dysuria MSKEL: No muscle pain SKIN: No new rashes, no lesions. NEURO: No headache, no focal weakness. HEME: No visible bruises PSYCH: Normal mood PFSH ED PFSH: Medical History Borderline personality disorder Cervical facet syndrome Chronic hypertension Diagnosed in 2009 and controlled on medication managed by primary care provider Chronic radicular low back pain Has had surgery for chronic lower back pain. Diabetes mellitus Diagnosed in 2014 and she is currently on metformin. She states that her last hemoglobin A1c was high Gastritis GERD (gastroesophageal reflux disease) Hypercholesteremia Diagnosed in 2009 and is controlled with medication managed by PMD Long-term current use of opiate analgesic Major depressive disorder, recurrent severe without psychotic features 2014 currently on medication and follows up with [facility] Myalgia No pertinent past medical history Denies: Asthma seizures, DVT/PE PCP: Dr. Coronado Surgical History Hx of cervical spine surgery (~03/24/18) Dr Watts 03/24/18 Comments: Cervical laminectomy for placement of intraspinal, epidural paddle electrode arrays and placement of subcutaneous pulse generator. Hx of cholecystectomy 2012-laparoscopic procedure by Dr. Barahona at [facility] Hx of hysterectomy Had a total abdominal hysterectomy via Pfannenstiel incision for pelvic inflammatory disease per patient. She states that both tubes, uterus and the left ovary were removed. She only has her right ovary remaining at this time. Family History Mother Diabetes Heart disease Hyperlipidemia Brother Hypertension x 2 Sister Breast cancer Diagnose at age 35 Denies family history of Colon cancer Ovarian cancer Anesthesia complication Bleeding disorder Uterine cancer Thyroid condition Stroke Social History Smoking and tobacco status: current every day smoker (currently trying to stop smoking 1/2 pack per day ) Second hand smoke exposure: Yes Alcohol intake: never Lives independently: Yes Household members: none Current occupational status: disabled History of recent travel: No Female Reproductive History: Date of last menstrual period: 11/21/20 Physical Exam Narrative: EXAM NARRATIVE: Head: Atraumatic Eyes: PERRL, conjunctiva without injection ENT: Mucous membrane moist, oropharyngeal airway intact NECK: in c collar, +R anterior surigcal incision site dry/clean/intact with underlying moderately fluctuant neck lesion and mild ttp, no visible drainage, unable to assess ROM of the neck due to recent surgery LUNGS: LCTAB, no crackles/rhonchi CV: RRR ABDOMEN: Soft, nontender in all quadrants EXTREMITY: Normal ROM SKIN: No rash or erythema NEURO: Awake and alert, no focal motor deficits PSYCH: Normal mood and affect Course Vital Signs: Vital signs: Vital Signs Temperature 98.0 F 05/23/21 21:21 Pulse Rate 71 05/23/21 21:21 Respiratory Rate 18 05/23/21 22:39 Blood Pressure 164/80 05/23/21 21:21 Pulse Oximetry 97 05/23/21 21:21 MDM - General Adult MDM Narrative: Medical decision making narrative: Patient is a 66-year-old female s/p cervical disectomy on 05/14/[address] Krishnamurthy date the emergency room for evaluation anterior neck swelling and pain. On exam, patient is hemodynamically stable, no signs of oral airway compromise. No stridor. Patient is noted to have a right lower anterior neck swelling with tenderness palpation along the surgical incision site. No obvious signs of surigical wound site infection or dehiscence. It is unclear when the lesion first appeared. Lab work-up and CT of the neck did not show any signs of acute abscess, hematoma, or infection. This is consistent with postoperative changes. Patient is given Tylenol as needed pain. Disposition: Discharge. Patient is given follow-up with Dr. Krishnamurthy. Patient is also given return precaution for any worse of breath, drooling, stridor, difficulty swallowing, expanding lesion, fever/chills, or any new or concerning complaints. Patient to keep wearing C-collar until cleared by Dr. Krishnamurthy. Lab Data: Labs: Lab Results 05/23/21 05/23/21 21:45 21:45 WBC 7.5 10^3/uL 10^3/ uL (4.0-10.0) RBC 4.08 10^6/uL L 10 ^6/uL (4.1-5.3) Hgb 12.2 g/dL g/dL (11.5-15.3) Hct 36.5 % L % (37.0-47.0) MCV 89.5 fl fl (81-99) MCH 29.9 pg pg (28.0-34.0) MCHC 33.4 g/dL g/dL (30.0-36.0) RDW 12.7 % % (12.1-15.1) Plt Count 266 10^3/cmm 10^3 /cmm (130-400) MPV 8.5 fL fL (7.4-10.4) Neut % (Auto) 55.5 % % Lymph % (Auto) 29.4 % % [place] % (Auto) 7.8 % % Eos % (Auto) 5.7 % % Baso % (Auto) 1.2 % % Neut # (Auto) 4.17 10^3/uL 10^3 /uL (1.8-7.7) Lymph # (Auto) 2.2 10^3/uL 10^3/ uL (0.8-4.8) [place] # (Auto) 0.6 10^3/uL 10^3/ uL (0.2-0.9) Eos # (Auto) 0.4 10^3/uL 10^3/ uL (0.0-0.8) Baso # (Auto) 0.1 10^3/uL 10^3/ uL (0.0-0.1) Nucleated RBC % (a uto) 0 % % Nucleated RBCs # 0.0 /100WBC /100W BC Sodium 137 mmol/L mmol/L (136-145) Potassium 3.8 mmol/L mmol/L (3.5-5.1) Chloride 99 mmol/L mmol/L (98-107) Carbon Dioxide 29 mmol/L mmol/L (22-29) Anion Gap 12.8 (5-19) BUN 10 mg/dL mg/dL (8-23) Creatinine 0.5 mg/dL mg/dL (0.5-0.9) GFR Calculation 123.1 mL/min mL/m in (90-130) Glucose 91 mg/dL mg/dL (65-115) Calculated Osmolal ity 283 mOsm/kg L mOs m/kg (285-295) Calcium 8.9 mg/dL mg/dL (8.5-10.5) Imaging Data^: Other Imaging: Radiologist's impression: [facility] [id number] Scan ReportSigned Patient: Burak Fontenot #: [id number]: 1955cct#:[id number]/Sex: 66 / FADM Date: 05/23/21Loc: ERRoom/Bed:Attending Dr: Ordering Provider/Ordering MD: Stephen Bonner MD Date of Service: 05/23/21 Procedure(s): CT neck w con* [id number] Accession Number(s): [id number] Report Number: [id number] PROCEDURE INFORMATION: Exam: CT Neck With Contrast Exam date and time: 05/23/2021 9:28 PM Age: 66 years old Clinical indication: Mass, lump, or swelling in neck; Prior surgery; Surgery type: Fusion. Stimulator. ; Patient HX: Patient underwent anterior cervical fusion nine days ago. Presents today with swelling to incision site. ; Additional info: Rule out postoperative infection anterior neck TECHNIQUE: Imaging protocol: Computed tomography images of the neck with contrast. Radiation optimization: All CT scans at this facility use at least one of these dose optimization techniques: automated exposure control; mA and/or kV adjustment per patient size (includes targeted exams where dose is matched to clinical indication); or iterative reconstruction. Contrast material: OMNI 300; Contrast volume: 95 ml; Contrast route: INTRAVENOUS (IV); COMPARISON: CT angio headneck* [id number] 12/20/2020 8:44 AM RADIATION DOSE METRICS: Total DLP (mGy-cm): 411.21 FINDINGS: Brain: The visible portion of the brain is normal. Orbital cavity: The orbits are unremarkable. Nasopharynx: Unremarkable. Oropharynx: Unremarkable. No significant tonsillar enlargement. Hypopharynx: Unremarkable. Larynx: Unremarkable. Normal epiglottis. Retropharyngeal space: There is trace fluid in the retropharyngeal space on the right. No retropharyngeal abscess. Submandibular/Parotid glands: The parotid glands are normal. The submandibular glands are normal. Thyroid: The thyroid gland is unremarkable. Lymph nodes: There is no cervical or supraclavicular lymphadenopathy. Trachea: The visible portion of the trachea is normal. Lungs: Lung apices are clear. Bones/joints: There is anterior and interbody fusion from C5 through C7 without apparent complications. There are epidural neurostimulator leads posteriorly at C5-C6. Vasculature: The carotid and vertebral arteries and internal jugular veins are unremarkable as visualized. Soft tissues: There is a trace of fluid and gas in the superficial and deep soft tissues at the incision site in the lower neck to the right of midline. There is associated edema along the right aspect the thyroid. There is no organized fluid collection. No discrete hematoma. CT/CT neck w con* [id number] IMPRESSION: Expected postoperative findings in the lower neck. No significant hematoma. No abscess. Radiation Dose CTDIVOL = (mGy): DLP = 411.21 (mGy-cm) Dictated By:Reece Carney MDSigned By:Reece Carney MDSigned Date/Time:05/23/212217DD/ 16 Discharge Plan Discharge Patient Disposition: Home Clinical Impression: Lump in neck Condition: Stable Prescriptions: No Action hydrochlorothiazide 12.5 mg tablet 12.5 mg PO DAILY@0800 RF: 0 losartan 50 mg tablet 50 mg PO DAILY@08 RF: 0 amlodipine 5 mg tablet 5 mg PO DAILY@799 RF: 0 acyclovir 400 mg tablet 400 mg PO BID@799,1999 RF: 0 atorvastatin 10 mg tablet 10 mg PO BEDTIME@1999 RF: 0 ondansetron HCl [Zofran] 4 mg tablet 4 mg PO Q6H RF: 0 nystatin 100,000 unit/gram powder 1 applic TOPICAL DAILY PRN (Reason: UNKNOWN) RF: 0 alendronate [Fosamax] 70 mg tablet 70 mg PO Q7D RF: 0 dalfampridine 10 mg tablet extended release 12 hr 10 mg PO Q12H Qty: 60 RF: 5 (DME) Bone Growth Stimulator E0748 See Rx Instructions .Route .MEDSUPPLY Qty: 1 RF: 0 hydrocodone-acetaminophen 10-325 mg tablet 1 tab PO Q4H PRN (Reason: Pain) 7 Days Qty: 40 RF: 0 acetaminophen [Tylenol] 325 mg Tablet 325 mg PO QID PRN (Reason: Pain) RF: 0 propranolol 10 mg tablet 10 mg PO BID@799,1999 RF: 0 oxybutynin chloride [Ditropan XL] 5 mg tablet extended release 24hr 5 mg PO DAILY@799 RF: 0 primidone 50 mg tablet 50 mg PO DAILY RF: 0 trazodone 100 mg tablet 100 mg PO BEDTIME@1999 RF: 0 pantoprazole 40 mg tablet,delayed release (DR/EC) 40 mg PO BID@ RF: 0 sertraline 50 mg tablet 50 mg PO DAILY RF: 0 Discharge Orders: Discharge ED (Routine); Ordered 05/23/21 Ordered By: Stephen Bonner Referrals: Darryl Coronado MD [Primary Care Provider] - Discharge Diet: Advance as tolerated Discharge Activity: Resume usual activity Activity Restrictions/Additional Instructions: Come back to the emergency room if you have any worsening pain, if fever/chills, worsening pain, lesions getting bigger, difficulty swallowing, throat pain, drooling, or any new or concerning complaints. Otherwise follow up with Dr. Krishnamurthy. [address] [address] Scan ReportSigned Patient: Burak Fontenot #: [id number]: 4At#:[id number]/Sex: 66 / FADM Date: 05/23/21Loc: ERRoom/Bed:Attending Dr: Ordering Provider/Ordering MD: Stephen Bonner MD Date of Service: 05/23/21 Procedure(s): CT neck w con* [id number] Accession Number(s): [id number] Report Number: [id number] PROCEDURE INFORMATION: Exam: CT Neck With Contrast Exam date and time: 05/23/2021 9:28 PM Age: 66 years old Clinical indication: Mass, lump, or swelling in neck; Prior surgery; Surgery type: Fusion. Stimulator. ; Patient HX: Patient underwent anterior cervical fusion nine days ago. Presents today with swelling to incision site. ; Additional info: Rule out postoperative infection anterior neck TECHNIQUE: Imaging protocol: Computed tomography images of the neck with contrast. Radiation optimization: All CT scans at this facility use at least one of these dose optimization techniques: automated exposure control; mA and/or kV adjustment per patient size (includes targeted exams where dose is matched to clinical indication); or iterative reconstruction. Contrast material: OMNI 300; Contrast volume: 95 ml; Contrast route: INTRAVENOUS (IV); COMPARISON: CT angio headneck* [id number] 12/20/2020 8:44 AM RADIATION DOSE METRICS: Total DLP (mGy-cm): 411.21 FINDINGS: Brain: The visible portion of the brain is normal. Orbital cavity: The orbits are unremarkable. Nasopharynx: Unremarkable. Oropharynx: Unremarkable. No significant tonsillar enlargement. Hypopharynx: Unremarkable. Larynx: Unremarkable. Normal epiglottis. Retropharyngeal space: There is trace fluid in the retropharyngeal space on the right. No retropharyngeal abscess. Submandibular/Parotid glands: The parotid glands are normal. The submandibular glands are normal. Thyroid: The thyroid gland is unremarkable. Lymph nodes: There is no cervical or supraclavicular lymphadenopathy. Trachea: The visible portion of the trachea is normal. Lungs: Lung apices are clear. Bones/joints: There is anterior and interbody fusion from C5 through C7 without apparent complications. There are epidural neurostimulator leads posteriorly at C5-C6. Vasculature: The carotid and vertebral arteries and internal jugular veins are unremarkable as visualized. Soft tissues: There is a trace of fluid and gas in the superficial and deep soft tissues at the incision site in the lower neck to the right of midline. There is associated edema along the right aspect the thyroid. There is no organized fluid collection. No discrete hematoma. CT/CT neck w con* [id number] IMPRESSION: Expected postoperative findings in the lower neck. No significant hematoma. No abscess. Radiation Dose CTDIVOL = (mGy): DLP = 411.21 (mGy-cm) Dictated By:Reece Carney MDSigned By:Reece Carney MDSigned Date/Time:05/23/218DD/ 16 Coding Level of Care Code ED Scrap Iron Cutter for Chg Gildardo
[2021-05-23 21:54] LABS: Basophils # 0.1 10^3/uL (0.0-0.1); Basophils % 1.2 %; Eosinophils # 0.4 10^3/uL (0.0-0.8); Eosinophils % 5.7 %; Hematocrit 36.5 % (37.0-47.0); Hemoglobin 12.2 g/dL (11.5-15.3); Lymphocytes # 2.2 10^3/uL (0.8-4.8); Lymphocytes % 29.4 %; Mean Corpuscular HGB Conc 33.4 g/dL (30.0-36.0); Mean Corpuscular Hemoglobin 29.9 pg (28.0-34.0); Mean Corpuscular Volume 89.5 fl (81-99); Mean Platelet Volume 8.5 fL (7.4-10.4); Monocytes # 0.6 10^3/uL (0.2-0.9); Monocytes % 7.8 %; Neutrophils # 4.17 10^3/uL (1.8-7.7); Neutrophils % 55.5 %; Nucleated Red Blood Cells % 0 %; Platelet Count 266 10^3/cmm (130-400); Red Blood Count 4.08 10^6/uL (4.1-5.3); Red Cell Distribution Width 12.7 % (12.1-15.1); White Blood Count 7.5 10^3/uL (4.0-10.0)
[2021-05-23] MEDS: iohexol 300 mg/mL 100 mL Btl IV (21:54)
[2021-05-23 22:10] LABS: Anion Gap 12.8 (5-19); Blood Urea Nitrogen 10 mg/dL (8-23); Calcium 8.9 mg/dL (8.5-10.5); Carbon Dioxide 29 mmol/L (22-29); Chloride 99 mmol/L (98-107); Creatinine Clr Calc Pharmacy 63.6551; Glomerular Filtration Rate 123.1 mL/min (90-130); Glucose 91 mg/dL (65-115); Osmolality Calculated 283 mOsm/kg (285-295); Potassium 3.8 mmol/L (3.5-5.1); Sodium 137 mmol/L (136-145)
[2021-05-23 22:39] VITALS: RESP 18
[2021-05-23] MEDS: oxyCODONE-APAP 5-325 mg Tablet 1 TAB PO (22:39)
--- NOTE | 2021-05-26 10:34 | DCPLANNER ---
campaign marketing manager had message to schedule a follow up appointment for patient with Dr. Krishnamurthy earlier than what she has scheduled at this time. campaign marketing manager called the ortho clinic, spoke with Julianne, gave clinic patients information. campaign marketing manager was told that patients information would be printed and reviewed. Clinic will call patient with appointment information.
--- NOTE | 2021-05-30 08:01 | DCPLANNER ---
Addendum entered by Naina Padilla 09/19/21 14:56: Patient had a follow up appointment scheduled for 06.03.[address] Krishnamurthy at [facility] - patient did attend appointment. Original Note: Patient has a follow up appointment scheduled for Thursday, June 03, 2021 at 10:[address] Krishnamurthy. Clinic will call patient with appointment information.
== END 2021-05-23 23:23 | disposition home or self-care (01) ==
LOC: ER 21:50
PROVIDERS: Emergency Provider Emergency Medicine; PCP Family Medicine
DX: R22.1 Localized swelling, mass and lump, neck (principal); I10 Essential (primary) hypertension; E11.9 Type 2 diabetes mellitus without complications; F17.210 Nicotine dependence, cigarettes, uncomplicated
CPT/HCPCS: 70491; 80048; 85025; 99283; Q9967

== ENCOUNTER → 2021-06-12 07:02 | Outpatient (BNVA) | payer MEDICARE, MEDICAID, SELFPAY | PROVIDERS: PCP Family Medicine; Visit Provider Nurse Practitioner Psychiatric/Mental Health | DX: F33.2 Major depressive disorder, recurrent severe without psychotic features (principal); F60.3 Borderline personality disorder; F17.210 Nicotine dependence, cigarettes, uncomplicated; E11.9 Type 2 diabetes mellitus without complications; I10 Essential (primary) hypertension | CPT/HCPCS: 99214 ==

== ENCOUNTER → 2021-06-24 11:06 | Outpatient (BNVA) | payer MEDICARE, MEDICAID, SELFPAY | PROVIDERS: PCP Family Medicine; Visit Provider Physician Assistant | DX: Z98.890 Other specified postprocedural states (principal) | CPT/HCPCS: 72040 ==

== ENCOUNTER → 2021-08-28 11:31 | Outpatient (BNVA) | payer MEDICARE, MEDICAID, SELFPAY | PROVIDERS: PCP Family Medicine; Visit Provider Physician Assistant | DX: Z98.890 Other specified postprocedural states (principal); Z98.1 Arthrodesis status | CPT/HCPCS: 72040 ==

== ENCOUNTER → 2021-09-09 08:00 | Outpatient (BNVA) | payer MEDICARE, MEDICAID, SELFPAY | PROVIDERS: PCP Family Medicine; Visit Provider Nurse Practitioner Psychiatric/Mental Health | DX: F33.2 Major depressive disorder, recurrent severe without psychotic features (principal); F60.3 Borderline personality disorder; F17.210 Nicotine dependence, cigarettes, uncomplicated; E11.9 Type 2 diabetes mellitus without complications; I10 Essential (primary) hypertension | CPT/HCPCS: 99214 ==

== ENCOUNTER → 2021-10-21 07:08 | Outpatient (BNVA) | payer MEDICARE, MEDICAID, SELFPAY | PROVIDERS: PCP Family Medicine; Visit Provider Nurse Practitioner Psychiatric/Mental Health | DX: F33.2 Major depressive disorder, recurrent severe without psychotic features (principal); F60.3 Borderline personality disorder; F17.210 Nicotine dependence, cigarettes, uncomplicated; E11.9 Type 2 diabetes mellitus without complications; I10 Essential (primary) hypertension | CPT/HCPCS: 99214 ==

== ENCOUNTER 2021-10-27 18:03 | Outpatient (CLI) | payer MEDICARE, MEDICAID, SELFPAY ==
--- NOTE | 2021-10-27 18:12 | CTR_ITS ---
PROCEDURE INFORMATION: Exam: CT Head Without Contrast Exam date and time: 10/27/2021 6:12 PM Age: 66 years old Clinical indication: Injury or trauma; Fall; Blunt trauma (contusions or hematomas); With loss of consciousness; Additional info: Loss of consciousness, headache, post traumatic TECHNIQUE: Imaging protocol: Computed tomography of the head without contrast. Radiation optimization: All CT scans at this facility use at least one of these dose optimization techniques: automated exposure control; mA and/or kV adjustment per patient size (includes targeted exams where dose is matched to clinical indication); or iterative reconstruction. COMPARISON: CT angio headneck* [id number] 12/20/2020 8:44 AM RADIATION DOSE METRICS: Total DLP (mGy-cm): 879.57 FINDINGS: Brain: There is moderate cortical atrophy. Low-density changes in the white matter are consistent with nonspecific small vessel chronic ischemic change. There is no intracranial mass, hemorrhage or edema. Cerebral ventricles: No ventriculomegaly. Paranasal sinuses: Visualized sinuses are unremarkable. No fluid levels. Mastoid air cells: Visualized mastoid air cells are well aerated. Bones/joints: Unremarkable. No acute fracture. Soft tissues: Unremarkable. CT/CT head wo con* [id number] IMPRESSION: No acute intracranial finding.
== END 2021-10-27 18:04 | disposition home or self-care (01) ==
PROVIDERS: PCP Family Medicine; Visit Provider Family Medicine
DX: R40.20 Unspecified coma (principal); G44.309 Post-traumatic headache, unspecified, not intractable
CPT/HCPCS: 70450

== ENCOUNTER → 2021-11-17 10:04 | Outpatient (BNVA) | payer MEDICARE, MEDICAID, SELFPAY | PROVIDERS: PCP Family Medicine; Visit Provider Specialist | DX: G43.711 Chronic migraine without aura, intractable, with status migrainosus (principal); G25.0 Essential tremor; F17.210 Nicotine dependence, cigarettes, uncomplicated | CPT/HCPCS: 99213; 99214 ==

== ENCOUNTER → 2021-12-02 07:37 | Outpatient (BNVA) | payer MEDICARE, MEDICAID, SELFPAY | PROVIDERS: PCP Family Medicine; Visit Provider Nurse Practitioner Psychiatric/Mental Health | DX: F33.2 Major depressive disorder, recurrent severe without psychotic features (principal); F60.3 Borderline personality disorder; F17.210 Nicotine dependence, cigarettes, uncomplicated; E11.9 Type 2 diabetes mellitus without complications; I10 Essential (primary) hypertension | CPT/HCPCS: 99214 ==

== ENCOUNTER → 2022-01-15 12:30 | Outpatient (BNVA) | payer MEDICARE, MEDICAID, SELFPAY | PROVIDERS: PCP Family Medicine | DX: E55.9 Vitamin D deficiency, unspecified (principal); E11.8 Type 2 diabetes mellitus with unspecified complications; Z51.81 Encounter for therapeutic drug level monitoring; Z00.00 Encounter for general adult medical examination without abnormal findings | CPT/HCPCS: 80053; 82306; 83036; 85025 ==

== ENCOUNTER → 2022-01-19 07:51 | Outpatient (BNVA) | payer MEDICARE, MEDICAID, SELFPAY | PROVIDERS: PCP Family Medicine; Visit Provider Family Medicine | DX: Z00.00 Encounter for general adult medical examination without abnormal findings (principal); E55.9 Vitamin D deficiency, unspecified; E11.8 Type 2 diabetes mellitus with unspecified complications; Z51.81 Encounter for therapeutic drug level monitoring | CPT/HCPCS: 80053; 82306; 83036; 85025 ==

== ENCOUNTER → 2022-01-27 07:18 | Outpatient (BNVA) | payer MEDICARE, MEDICAID, SELFPAY | PROVIDERS: PCP Family Medicine; Visit Provider Nurse Practitioner Psychiatric/Mental Health | DX: F33.2 Major depressive disorder, recurrent severe without psychotic features (principal); F60.3 Borderline personality disorder; F17.210 Nicotine dependence, cigarettes, uncomplicated; E11.9 Type 2 diabetes mellitus without complications; I10 Essential (primary) hypertension | CPT/HCPCS: 99214 ==

== ENCOUNTER → 2022-02-05 12:27 | Outpatient (BNVA) | payer MEDICARE, MEDICAID, SELFPAY | PROVIDERS: PCP Family Medicine; Visit Provider Orthopaedic Surgery | DX: Z98.1 Arthrodesis status (principal); M85.88 Other specified disorders of bone density and structure, other site | CPT/HCPCS: 72040; 72100; 99214 ==

== ENCOUNTER 2022-02-16 14:11 | Outpatient (CLI) | payer MEDICARE, MEDICAID, SELFPAY ==
--- NOTE | 2022-02-16 14:21 | XR_ITS ---
WS: [id number] Exam: XR chest 2V* [id number] Date/Time of Exam: 02/16/2022 2:22 PM Reason For Exam: COUGH Comparison 10/15/2019. Lungs are clear and fully expanded. Mild cardiac enlargement unchanged. The mediastinum is normal in contour. No pleural effusions. A neurostimulator extends into the lower cervical spine. Fusion hardwa re seen in the lower cervical spine. Bony structures are otherwise intact. XR/XR chest 2V* [id number] IMPRESSION: 1. No acute cardiopulmonary finding. Stable exam.
== END 2022-02-16 14:12 | disposition home or self-care (01) ==
LOC: RAD 14:13
PROVIDERS: PCP Family Medicine; Visit Provider Family Medicine
DX: R05.9 Cough, unspecified (principal); M43.22 Fusion of spine, cervical region; Z97.8 Presence of other specified devices
CPT/HCPCS: 71046

== ENCOUNTER 2022-02-27 07:42 | Day surgery (SDC) | payer MEDICARE, MEDICAID, SELFPAY ==
[2022-02-24 10:30] VITALS: BMI 29.2
--- NOTE | 2022-02-24 10:36 | ECG_ITS ---
[facility] Test Date: 2022-02-24 Pat Name: Ruthie Fontenot Department: Room: Gender: Female Director Account Management: : 1955 Requested By: Christian Devlin Order Number: [id number] Joshua MD: Shahana Kelley M.D. Measurements Intervals Mascot Rate: 86 P: 17 IA: 160 QRS: 17 QRSD: 82 T: 30 QT: 359 QTc: 430 Interpretive Statements SINUS RHYTHM Compared to ECG 05/07/2021 10:37:15 No significant changes Electronically Signed On 02-24-2022 20:13:28 CDT by Shahana Kelley M.D. [id number]
[2022-02-24 11:14] LABS: Anion Gap 16.8 (5-19); Blood Urea Nitrogen 15 mg/dL (8-23); Calcium 9.8 mg/dL (8.5-10.5); Carbon Dioxide 25 mmol/L (22-29); Chloride 99 mmol/L (98-107); Creatinine Clr Calc Pharmacy 62.7831; Glomerular Filtration Rate 122.7 mL/min (90-130); Glucose 91 mg/dL (65-115); Osmolality Calculated 284 mOsm/kg (285-295); Potassium 3.8 mmol/L (3.5-5.1); Sodium 137 mmol/L (136-145)
--- NOTE | 2022-02-24 13:33 | ANES.PREANE2 ---
Pre-Anesthetic Assessment Height/Weight: Height 1.57 m Weight 72.575 kg Preop Diagnosis: cervical spondylosis with myelopathy Operation Date: 02/27/22 09:40 Proposed Procedures p Stimulator Removal(Not Applicable) - Ghanshyam Krishnamurthy DO Familial anesthetic complications: none Was Beta Christina taken within 24 hours: N/A Was Clonidine taken within 24 hours: N/A Social Tobacco and No alcohol Exam alert, oriented x 3, clear to auscultation bilaterally and regular rate & rhythm Airway Submandibular: within normal limits Cervical ROM: Other (Limited ROM) Mallampati: Class II Dentition: chipped CV/HEM Hypertension and Peripheral Vascular Disease vertebrobasilar artery insufficiency None reported Hepatic None reported GI Gastroesophageal Reflux Disease Gastritis Chronic nausea Metabolic Diabetes Mellitus (Pre diabetic ) Musc/skel Lower Back Pain and Osteoarthritis/DJD Myalgia Hx of cervical spine laminectomy Neuropsych Anxiety, Cerebrovascular Accident (TIA no residual sequelae ), Depression, Headache and Neuropathy (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 Patient consents to proceed with general anesthesia. Patient prefers general, will take her prescription for promethazine on day of surgery. Risk of > 500 ml blood loss (7ml/kg in children): No Other Pertinent Information Patient prefers male provider for anesthetic Medications/Allergies Home Medications Medication Instructions Recorded Confirmed Last Taken Type acyclovir 400 mg tablet 400 mg PO BID@0800,199909/28/19 02/24/22 05/14/21 History amlodipine 5 mg tablet 5 mg PO DAILY@79909/28/19 02/24/22 05/14/21 History atorvastatin 10 mg tablet 10 mg PO BEDTIME@199909/28/19 02/24/22 05/13/21 History hydrochlorothiazide 12.5 mg tablet 12.5 mg PO DAILY@79909/28/19 02/24/22 05/14/21 History losartan 50 mg tablet 50 mg PO DAILY@79909/28/19 02/24/22 05/14/21 History nystatin 100,000 unit/gram topical 1 applic TOPICAL DAILY PRN 04/17/20 02/24/22 12/24/20 History powder alendronate 70 mg tablet (Fosamax) 70 mg PO Q7D tab 06/27/20 02/24/22 05/14/21 History ondansetron HCl 4 mg tablet 4 mg PO Q6H 08/27/20 02/24/22 05/14/21 History (Zofran) acetaminophen 325 mg tablet 325 mg PO QID PRN 11/11/20 02/24/22 12/24/20 History (Tylenol) oxybutynin chloride 5 mg 5 mg PO DAILY@0800 11/11/20 02/24/22 05/14/21 History tablet,extended release 24 hr (Ditropan XL) Bone Growth Stimulator E0748 #1 ea 05/13/21 02/05/22 Unknown Rx sertraline 100 mg tablet (Zoloft) 100 mg PO .morning #90 tab 12/02/21 02/24/22 Unknown Rx trazodone 100 mg tablet 200 mg PO BEDTIME PRN #180 tab 12/02/21 02/24/22 Unknown Rx dalfampridine 10 mg 10 mg PO Q12H #60 tab 01/05/22 02/24/22 Unknown Rx tablet,extended release,12 hr primidone 50 mg tablet See Rx Instructions .ROUTE 02/16/22 02/24/22 Unknown Rx .COMPLEX #60 tab oxycodone 10 mg tablet 10 mg PO DAILY 02/24/22 02/24/22 Unknown History Allergies Allergy/AdvReac Type Severity Reaction Status Date / Time Penicillins Allergy HIVES Verified 02/24/22 10:25 latex AdvReac rash Verified 02/24/22 10:25 quetiapine [From Seroquel] AdvReac ADR-Hallucinating Verified 02/24/22 10:25 / DIZZINESS PFS Anesthesia Medical History Borderline personality disorder Cervical facet syndrome Chronic hypertension Diagnosed in 2009 and controlled on medication managed by primary care provider Chronic radicular low back pain Has had surgery for chronic lower back pain. Diabetes mellitus Diagnosed in 2014 and she is currently on metformin. She states that her last hemoglobin A1c was high Gastritis GERD (gastroesophageal reflux disease) Hypercholesteremia Diagnosed in 2009 and is controlled with medication managed by PMD Long-term current use of opiate analgesic Major depressive disorder, recurrent severe without psychotic features 2014 currently on medication and follows up with [facility] Myalgia No pertinent past medical history Denies: Asthma seizures, DVT/PE PCP: Dr. Coronado Psychiatric care Surgical History Hx of cervical spine surgery (~03/24/18) Dr Watts 03/24/18 Comments: Cervical laminectomy for placement of intraspinal, epidural paddle electrode arrays and placement of subcutaneous pulse generator. Hx of cholecystectomy 2011-laparoscopic procedure by Dr. Barahona [place] [facility] [place] Hx of hysterectomy Had a total abdominal hysterectomy via Pfannenstiel incision for pelvic inflammatory disease per patient. She states that both tubes, uterus and the left ovary were removed. She only has her right ovary remaining at this time. Family History Mother Diabetes Heart disease Hyperlipidemia Brother Hypertension x 2 Sister Breast cancer Diagnose at age 35 Denies family history of Colon cancer Ovarian cancer Anesthesia complication Bleeding disorder Uterine cancer Thyroid condition Stroke Social History Smoking and tobacco status: current every day smoker Second hand smoke exposure: Yes Alcohol intake: never Lives independently: Yes Household members: none Current occupational status: disabled History of recent travel: No Female Reproductive History Date of last menstrual period: 11/21/20 Data Anesthesia : 02/24/22 Unknown BMP 02/24/22 Unknown Sodium 137 Potassium 3.8 Chloride 99 Carbon Dioxide 25 BUN 15 Creatinine 0.5 Glucose 91 Calcium 9.8 Cardiac Studies: No Data to Display
[2022-02-27] VITALS (18 sets, daily range): BP systolic 113–163; BP diastolic 76–100; PULSE 74–96; RESP 12–18; TEMP 36.4–36.8; O2SAT 94–100
--- NOTE | 2022-02-27 | XR_ITS ---
WS: [id number] XR lumbar spine 1V 11947 REASON FOR EXAM: removal of stimulator FINDINGS: Lower back battery pack and leads to the cervical stimulator and the stimulator have been removed. No remaining appliance identified. XR/XR lumbar spine 1V [id number] IMPRESSION: Removal of cervical stimulator as above.
--- NOTE | 2022-02-27 | SCC_ITS ---
Procedure done: 1. removal of neuro stimulator 2. Removal of battery pack for spinal stimulator 10.1 seconds of fluoroscopic guidance, for a cumulative dose of 1.87 mGy, was provided to Dr. Krishnamurthy by the radiology department. C-arm images of the lumbar spine were saved for the patient's permanent record. [facility]
[2022-02-27] MEDS: sodium chloride 0.9% 1,000 ML 30 ML IV (08:18)
--- NOTE | 2022-02-27 08:45 | P.ANESUD_ITS ---
Pre-Anesthetic Update Pre-Anesthetic Assessment: Date of Surgery/Procedure: 02/27/22 Preop Chandni gnosis: Failed Hardware, Chronic Pain syndrome Proposed Procedure: Operation Date: 02/27/22 09:40 Proposed Procedures p Stimulator Removal(Not Applicable) - Ghanshyam Krishnamurthy, DO Any changes to Pre-Anesthetic Assessment?: No Last Intake: Intake Last Liquid Date 02/26/22 Last Liquid Time 20:00 Last Solid Date 02/26/22 Last Solid Time 20:00 Vitals: Pulse Rate 75 02/27/22 07:55 Respiratory Rate 18 02/27/22 07:55 Blood Pressure 159/85 02/27/22 07:55 Blood Pressure Maribell n 109 02/27/22 07:55 Pulse Oximetry 94 02/27/22 07:55 Oxygen Delivery Me thod 02/27/22 08:03 Exam: Pre-Anes Outpt Exam: alert, oriented x 3, clear to auscultation bilaterally and regular rate & rhythm Cardiac Studies: No Data to Display
[2022-02-27] MEDS: fentaNYL 50 mcg/mL INJ 2mL IVP ×3 (08:49→13:27)
[2022-02-27] MEDS: midazolam 1 mg/mL INJ 2 mL 2 MG IVP (09:38)
--- NOTE | 2022-02-27 10:06 | W.PM.OPSUD ---
Surgery/Procedure H&P Update DATE OF PROCEDURE: February 27, 2022 DATE H&P PERFORMED: 02/05/22 H&P UPDATE INFORMATION: I have reviewed H&P completed within last 30 days, I have examined patient prior to procedure and No changes to prior documentation PREOP DIAGNOSIS: Failed Hardware, Chronic Pain syndrome PLANNED PROCEDURE: Operation Date: 02/27/22 09:40 Proposed Procedures p Stimulator Removal(Not Applicable) - Ghanshyam Krishnamurthy, DO
[2022-02-27] MEDS: clindamycin 900 MG/50 ML PREMIX 100 MG IV (10:55)
[2022-02-27] MEDS: vancomycin 1,000 MG SDV 1000 MG XX (12:05)
--- NOTE | 2022-02-27 12:50 | PM.OP ---
Operative Report Date of procedure: February 27, 2022 Pre-op diagnosis: Preop Diagnosis Failed Hardware, Chronic Pain syndrome Post-op diagnosis: same Procedure done: 1. removal of neuro stimulator 2. Removal of battery pack for spinal stimulator Surgeon: Ghanshyam Krishnamurthy Estimated blood loss (mL): 50 Procedure: 1. removal of neuro stimulator 2. Removal of battery pack for spinal stimulator Patient was seen in the operative suite placed in prone position on his bed and well-padded patient's prepped draped normal sterile fashion. Skin incision made using the previous incision over the neck. The dissection was brought down to the lamina of the interspace with a neurostimulator was placed in the posterior cervical spine. The wires were traced down to this interval. Microscope was brought in. Drill was used to drill out part of the lamina and then a curette was used to undermine and then Kerrison rongeur was used to take down part the lamina as well as scar tissue around the nerve stimulator. The neurostimulator is pulled out. Wires were cut. Attention was then brought to the battery pack. Skin tear is made over the battery pack. Barriers identified and then removed wires were cut. Once the wires were cut there were then pulled through to the nurse team and then the area in the cervical spine where the wires were tied in was cut and then that was removed. The C-arm was brought in to ensure that all the hardware and wires were removed. Once this was completed then wounds were irrigated closed with 0 Vicryl 2-0 Vicryl and Monocryl suture in a layered fashion bank powder was placed in both wounds.
--- NOTE | 2022-02-27 15:00 | ANE.PACU2 ---
Inpatient post-anesthesia follow up: Airway intact: Yes Vital signs: Temperature 98.3 F Pulse Rate 78 Respiratory Rate 18 Blood Pressure 155/92 Pulse Oximetry 97 Oxygen Delivery Me thod Room Air Oxygen Flow Rate 8 Fraction of Inspir ed Oxygen Hydration adequate: Yes Nausea and vomiting: No Pain level: 1 Mental status: Baseline
== END 2022-02-27 15:00 | disposition home or self-care (01) ==
PROVIDERS: Anesthesiology; PCP Family Medicine; Visit Provider Orthopaedic Surgery
PROC: (CPT 63662; principal; 2022-02-27 09:30)
DX: T85.199A Other mechanical complication of other implanted electronic stimulator of nervous system, initial encounter (principal); G89.4 Chronic pain syndrome; I10 Essential (primary) hypertension; K21.9 Gastro-esophageal reflux disease without esophagitis; E11.9 Type 2 diabetes mellitus without complications; F41.9 Anxiety disorder, unspecified; Z86.73 Personal history of transient ischemic attack (TIA), and cerebral infarction without residual deficits; F17.210 Nicotine dependence, cigarettes, uncomplicated; T85.193A Other mechanical complication of implanted electronic neurostimulator, generator, initial encounter
CPT/HCPCS: 63662; 63688; 72020; 76000; 80048; 93005; J2250; J2710; J3010; J3370; J3490; J7030

== ENCOUNTER → 2022-03-12 10:11 | Outpatient (BNVA) | payer MEDICARE, MEDICAID, SELFPAY | PROVIDERS: PCP Family Medicine; Visit Provider Physician Assistant | DX: Z47.89 Encounter for other orthopedic aftercare (principal); Z98.890 Other specified postprocedural states | CPT/HCPCS: 99024 ==

== ENCOUNTER → 2022-05-11 11:31 | Outpatient (BNVA) | payer MEDICARE, SELFPAY | PROVIDERS: PCP Family Medicine; Visit Provider Family Medicine | DX: R30.0 Dysuria (principal); J44.1 Chronic obstructive pulmonary disease with (acute) exacerbation; G89.29 Other chronic pain | CPT/HCPCS: 81000; 87077; 87086; 87184 ==

== ENCOUNTER 2022-05-19 14:43 | Outpatient (CLI) | payer MEDICARE, MEDICAID, SELFPAY ==
--- NOTE | 2022-05-19 14:52 | MM_ITS ---
WS: [id number] BILATERAL 3D TOMOSYNTHESIS DIGITAL SCREENING MAMMOGRAPHY WITH CAD CLINICAL INFORMATION: SCREENING HISTORY: Screening mammogram. No current complaints. COMPARISON: April 24, 2021 and February 01, 2020 TECHNIQUE: Bilateral CC and MLO views. FINDINGS: Scattered fibroglandular densities bilaterally. RIGHT intramammary lymph node near the chest wall sta ble since February 01, 2020. No suspicious focal mass, asymmetry, calcifications, or architectural distor tion. No evidence of malignancy. Punctate and secretory calcifications. MM/[place] [id number] IMPRESSION: BI-RADS: 2-Benign FOLLOW UP: 1 Year Follow-up Recommend return to annual screening mammography.
== END 2022-05-19 14:44 | disposition home or self-care (01) ==
LOC: RAD 14:43
PROVIDERS: PCP Family Medicine; Visit Provider Family Medicine
DX: Z12.31 Encounter for screening mammogram for malignant neoplasm of breast (principal)
CPT/HCPCS: 77063; 77067

== ENCOUNTER 2022-06-21 20:49 | Emergency (ER) | payer MEDICARE, MEDICAID, SELFPAY ==
[2022-06-21 20:52] VITALS: BMI 29.2
[2022-06-21 20:58] VITALS: BP 138/83; PULSE 78; RESP 16; TEMP 37.1; O2SAT 96
--- NOTE | 2022-06-21 21:05 | W.ED.GENADLT ---
HPI - General Adult General: Chief complaint: Nausea/Vomiting/Diarrhea Stated complaint: N/V Time Seen by Provider: 06/21/22 20:52 History of Present Illness: 67-year-old female presenting today with nausea and vomiting. Patient notes that she was feeling unwell prior to arrival. Having crampy epigastric abdominal pain. Which then proceeded to nausea and vomiting. Had 1 episode of vomitus. Before ambulance arrived. Now notes she only feels nauseous but does not feel like she will vomit. She denies diarrhea. She denies dysuria or polyuria. She denies fevers or chills. She denies chest pain or shortness of breath. No recent antibiotic use. Review of Systems General: Reports: 10 or more systems reviewed and unremarkable except in HPI and below PFS ED PFS: Medical History (Updated 06/21/22 @ 22:29 by John Escamilla DO) Borderline personality disorder Cervical facet syndrome Chronic hypertension Diagnosed in 2009 and controlled on medication managed by primary care provider Chronic radicular low back pain Has had surgery for chronic lower back pain. Diabetes mellitus Diagnosed in 2014 and she is currently on metformin. She states that her last hemoglobin A1c was high Gastritis GERD (gastroesophageal reflux disease) Hypercholesteremia Diagnosed in 2009 and is controlled with medication managed by PMD Long-term current use of opiate analgesic Major depressive disorder, recurrent severe without psychotic features 2014 currently on medication and follows up with [facility] [place] Myalgia No pertinent past medical history Denies: Asthma seizures, DVT/PE PCP: Dr. Coronado Polysubstance use disorder History of polysubstance use disorder, including benzodiazepines Psychiatric care S/P placement of nerve stimulator S/P removal by Dr Krishnamurthy in 2021. Surgical History Hx of cervical spine surgery (~03/24/18) Dr Watts 03/24/18 Comments: Cervical laminectomy for placement of intraspinal, epidural paddle electrode arrays and placement of subcutaneous pulse generator. Hx of cholecystectomy 2011-laparoscopic procedure by Dr. Barahona at [facility] [place] Hx of hysterectomy Had a total abdominal hysterectomy via Pfannenstiel incision for pelvic inflammatory disease per patient. She states that both tubes, uterus and the left ovary were removed. She only has her right ovary remaining at this time. Family History Mother Diabetes Heart disease Hyperlipidemia Brother Hypertension x 2 Sister Breast cancer Diagnose at age 35 Denies family history of Colon cancer Ovarian cancer Anesthesia complication Bleeding disorder Uterine cancer Thyroid condition Stroke Social History Smoking and tobacco status: current every day smoker Second hand smoke exposure: Yes Alcohol intake: never Lives independently: Yes Household members: none Current occupational status: disabled History of recent travel: No Female Reproductive History: Date of last menstrual period: 11/21/20 Physical Exam Const: COMMON NORMALS: no acute distress, patient oriented x3 and alert GENERAL APPEARANCE: cooperative ORIENTATION/CONSCIOUSNESS: Yes awake, Yes oriented to person, Yes oriented to place and Yes oriented to time HENMT: COMMON NORMALS: normocephalic, atraumatic, external ears normal, Normal external nose present and moist oral mucous membranes HEAD & SCALP: normal to inspection, normocephalic and atraumatic NOSE: Normal external nose present GENERAL EAR: hearing grossly impaired EXTERNAL EAR: Yes external ears normal Eye: COMMON NORMALS: Equal, round and reactive pupils present, EOMs intact bilaterally, conjunctivae normal and no scleral icterus GENERAL EYE: appearance normal, both eyes and all related structures EYELID: eyelids normal CONJUNCTIVA: Yes conjunctivae normal SCLERA: sclerae normal PUPIL: Yes Equal, round and reactive pupils present Neck/C-Spine: COMMON NORMALS: full ROM, supple and no JVD GENERAL: Yes normal visual inspection Lymph: LYMPHATIC: no lymphadenopathy noted and no lymphedema noted Chest: COMMONS NORMALS: normal inspection of the chest Resp: COMMON NORMALS: normal respiratory effort, No retractions and No use of accessory muscles Cardio: COMMON NORMALS: no JVD, regular rate and regular rhythm RATE: regular rate RHYTHM: regular rhythm GI: COMMON NORMALS: Normal to inspection, nondistended, normoactive bowel sounds present (Epigastric tenderness.) : COMMON NORMALS: Yes no CVA tenderness BLADDER/KIDNEY EXAM: Yes no CVA tenderness Back/Pelvis: COMMON NORMALS: no CVA tenderness and thoracic and lumbar spine normal to inspection Extremity: COMMON NORMALS: normal to inspection, full ROM and capillary refill normal GENERAL: Yes normal exam except as noted Neuro: COMMON NORMALS: patient oriented x3, CN's II-XII intact bilaterally, moves all extremities, no focal motor deficits, no sensory deficits noted and gait normal SENSORIUM/ORIENTATION: Yes alert, Yes oriented to person, Yes oriented to place and Yes oriented to time Psych: COMMON NORMALS: mental status grossly normal, Normal thought process present, cooperative and normal affect THOUGHT PROCESS: Normal thought process present Skin: COMMON NORMALS: no rashes or lesions noted and no wounds GENERAL SKIN EXAM: no rashes or lesions noted Course Vital Signs: Vital signs: Vital Signs Temperature 98.8 F 06/21/22 20:58 Pulse Rate 78 06/21/22 20:58 Respiratory Rate 16 06/21/22 20:58 Blood Pressure 138/83 06/21/22 20:58 Pulse Oximetry 96 06/21/22 20:58 Oxygen Delivery Me thod 06/21/22 20:58 MDM - General Adult Medical Decision Making 67-year-old female presenting today with abdominal pain. Vitals within normal limits. Epigastric tenderness is present. CBC with slight leukocytosis. CMP is unremarkable. CT abdomen pelvis initially ordered. However on reevaluation patient stating she does not want the CT noting she feels much improved. And would like to go home. Noted to patient she may return to the ED for worsening symptoms or nausea or vomiting. Patient was given strict return precautions and recommended routine outpatient follow-up. Lab Data : 06/21/22 21:42 06/21/22 21:42 Laboratory Results WBC 11.5 10^3/uL (4.0-10.0) H 06/21/22 21:42 RBC 4.49 10^6/uL (4.1-5.3) 06/21/22 21:42 Hgb 13.6 g/dL (11.5-15.3) 06/21/22 21:42 Hct 40.2 % (37.0-47.0) 06/21/22 21:42 MCV 89.5 fl (81-99) 06/21/22 21:42 MCH 30.3 pg (28.0-34.0) 06/21/22 21:42 MCHC 33.8 g/dL (30.0-36.0) 06/21/22 21:42 RDW 12.3 % (12.1-15.1) 06/21/22 21:42 Plt Count 287 10^3/cmm (130-400) 06/21/22 21:42 MPV 8.9 fL (7.4-10.4) 06/21/22 21:42 Neut % (Auto) 72.3 % 06/21/22 21:42 Lymph % (Auto) 19.3 % 06/21/22 21:42 Morrill % (Auto) 6.6 % 06/21/22 21:42 Eos % (Auto) 0.9 % 06/21/22 21:42 Baso % (Auto) 0.4 % 06/21/22 21:42 Neut # (Auto) 8.30 10^3/uL (1.8-7.7) H 06/21/22 21:42 Lymph # (Auto) 2.2 10^3/uL (0.8-4.8) 06/21/22 21:42 Morrill # (Auto) 0.8 10^3/uL (0.2-0.9) 06/21/22 21:42 Eos # (Auto) 0.1 10^3/uL (0.0-0.8) 06/21/22 21:42 Baso # (Auto) 0.1 10^3/uL (0.0-0.1) 06/21/22 21:42 Nucleated RBC % (auto) 0 % 06/21/22 21:42 Nucleated RBCs # 0.0 /100WBC 06/21/22 21:42 Sodium 139 mmol/L (136-145) 06/21/22 21:42 Potassium 3.7 mmol/L (3.5-5.1) 06/21/22 21:42 Chloride 101 mmol/L (98-107) 06/21/22 21:42 Carbon Dioxide 25 mmol/L (22-29) 06/21/22 21:42 Anion Gap 16.7 (5-19) 06/21/22 21:42 BUN 12 mg/dL (8-23) 06/21/22 21:42 Creatinine 0.5 mg/dL (0.5-0.9) 06/21/22 21:42 GFR Calculation 122.7 mL/min (90-130) 06/21/22 21:42 Glucose 129 mg/dL (65-115) H 06/21/22 21:42 Calculated Osmolality 289 mOsm/kg (285-295) 06/21/22 21:42 Lactate 1.7 mmol/L (0.5-2.2) 06/21/22 21:42 Calcium 9.1 mg/dL (8.5-10.5) 06/21/22 21:42 Total Bilirubin 0.2 mg/dL (0.15-1.2) 06/21/22 21:42 AST 18 U/L (0-32) 06/21/22 21:42 ALT 15 U/L (0-33) 06/21/22 21:42 Alkaline Phosphatase 54 U/L (35-105) 06/21/22 21:42 Troponin T Baseline 6 ng/L (0-10) 06/21/22 21:42 Total Protein 6.9 g/dL (6.6-8.7) 06/21/22 21:42 Albumin 4.2 g/dL (3.5-5.2) 06/21/22 21:42 Globulin 2.7 g/dL (1.3-4.6) 06/21/22 21:42 Lipase 108 U/L (13-60) H 06/21/22 21:42 Discharge Plan Discharge Patient Disposition: Home Clinical Impression: Nausea and vomiting Condition: Stable Prescriptions: No Action hydrochlorothiazide 12.5 mg tablet 12.5 mg PO DAILY@0800 losartan 50 mg tablet 50 mg PO DAILY@0800 amlodipine 5 mg tablet 5 mg PO DAILY@0800 acyclovir 400 mg tablet 400 mg PO BID@0800,2000 atorvastatin 10 mg tablet 10 mg PO BEDTIME@2000 nystatin 100,000 unit/gram powder 1 applic TOPICAL DAILY PRN (Reason: UNKNOWN) alendronate [Fosamax] 70 mg tablet 70 mg PO Q7D Rx Instructions: take on WEDNESDAY. sertraline [Zoloft] 100 mg tablet 100 mg PO .morning Qty: 90 1RF Rx Instructions: Take one tablet every morning trazodone 100 mg tablet 200 mg PO BEDTIME PRN (Reason: sleep) Qty: 180 1RF Rx Instructions: May take one to two tablets at bedtime as needed for sleep fluticasone propionate [Flovent HFA] 220 mcg/actuation HFA aerosol inhaler 1 puff inhalation BID Qty: 12 3RF prednisone 20 mg tablet 20 mg PO DAILY Qty: 5 0RF (DME) Bone Growth Stimulator E0748 See Rx Instructions .Route .MEDSUPPLY Qty: 1 0RF Rx Instructions: As directed primidone 50 mg tablet See Rx Instructions .ROUTE .COMPLEX Qty: 60 5RF Dose Instruction: TAKE 2 TABLETS BY MOUTH EVERY DAY Rx Instructions: TAKE 2 TABLETS BY MOUTH EVERY DAY hydrocodone-acetaminophen 5-325 mg tablet 1 tab PO Q6H PRN (Reason: pain) 5 Days Qty: 30 0RF ciprofloxacin HCl 500 mg tablet 500 mg PO BID Qty: 14 0RF acetaminophen [Tylenol] 325 mg Tablet 325 mg PO QID PRN (Reason: Pain) oxybutynin chloride [Ditropan XL] 5 mg tablet extended release 24hr 5 mg PO DAILY@0800 oxycodone 10 mg tablet 10 mg PO DAILY Ampyra 10 mg tablet extended release 12 hr 10 mg PO Q12H Rx Instructions: TAKE AT 0800 AND 2000 Discharge Orders: Discharge ED (Routine); Ordered 06/21/22 Ordered By: John Escamilla Referrals: Darryl Coronado MD [Primary Care Provider] - Patient Instructions: Abdominal Pain (ED), Acute Nausea and Vomiting (DC) Coding Level of Care Code ED Telephone Collector for Chg Fwd Exam Comprehensive
[2022-06-21] MEDS: acetaminophen 325 mg Tablet 975 MG PO (21:49)
[2022-06-21 21:50] LABS: Basophils # 0.1 10^3/uL (0.0-0.1); Basophils % 0.4 %; Eosinophils # 0.1 10^3/uL (0.0-0.8); Eosinophils % 0.9 %; Hematocrit 40.2 % (37.0-47.0); Hemoglobin 13.6 g/dL (11.5-15.3); Lymphocytes # 2.2 10^3/uL (0.8-4.8); Lymphocytes % 19.3 %; Mean Corpuscular HGB Conc 33.8 g/dL (30.0-36.0); Mean Corpuscular Hemoglobin 30.3 pg (28.0-34.0); Mean Corpuscular Volume 89.5 fl (81-99); Mean Platelet Volume 8.9 fL (7.4-10.4); Monocytes # 0.8 10^3/uL (0.2-0.9); Monocytes % 6.6 %; Neutrophils % 72.3 %; Nucleated Red Blood Cells % 0 %; Platelet Count 287 10^3/cmm (130-400); Red Blood Count 4.49 10^6/uL (4.1-5.3); Red Cell Distribution Width 12.3 % (12.1-15.1); White Blood Count 11.5 10^3/uL (4.0-10.0)
[2022-06-21] MEDS: prochlorperazine 10 mg/2 mL Inj IVP (21:50)
[2022-06-21 22:08] LABS: Lactate (Lactic Acid level) 1.7 mmol/L (0.5-2.2)
[2022-06-21 22:13] LABS: Alanine Aminotransferase 15 U/L (0-33); Albumin Level 4.2 g/dL (3.5-5.2); Alkaline Phosphatase 54 U/L (35-105); Anion Gap 16.7 (5-19); Aspartate Amino Transferase 18 U/L (0-32); Blood Urea Nitrogen 12 mg/dL (8-23); Calcium 9.1 mg/dL (8.5-10.5); Carbon Dioxide 25 mmol/L (22-29); Chloride 101 mmol/L (98-107); Creatinine Clr Calc Pharmacy 62.7831; Globulin 2.7 g/dL (1.3-4.6); Glomerular Filtration Rate 122.7 mL/min (90-130); Glucose 129 mg/dL (65-115); Lipase 108 U/L (13-60); Osmolality Calculated 289 mOsm/kg (285-295); Potassium 3.7 mmol/L (3.5-5.1); Sodium 139 mmol/L (136-145); Total Bilirubin 0.2 mg/dL (0.15-1.2); Total Protein 6.9 g/dL (6.6-8.7)
[2022-06-21 22:14] LABS: Troponin(5th) Baseline 6 ng/L (0-10)
[2022-06-21 22:26] LABS: Add Urine Microscopic? NO; Charge for UA Resulting for Rev
[2022-06-21 22:30] LABS: Bilirubin Urine Neg (Negative); Blood Urine Neg (Negative); Glucose Urine UA Norm (Normal); Ketones Urine Negative (Negative); Leukocyte Esterase Urine Negative (Negative); Nitrate Urine Negative (Negative); Protein Urine Neg (Negative); Specific Gravity, Urine 1.005 (1.005-1.030); Urine Appearance SL Hazy (CLEAR); Urine Color Yellow (Yellow); Urobilinogen Urine Neg (Negative); pH Urine 6 (5-7)
[2022-06-21 22:47] VITALS: BP 120/80; PULSE 72; RESP 17; O2SAT 95
== END 2022-06-21 22:49 | disposition home or self-care (01) ==
PROVIDERS: Nurse Practitioner Family; Emergency Provider Emergency Medicine; PCP Family Medicine
DX: R11.2 Nausea with vomiting, unspecified (principal); F17.210 Nicotine dependence, cigarettes, uncomplicated; E11.9 Type 2 diabetes mellitus without complications
CPT/HCPCS: 80053; 81003; 83605; 83690; 84484; 85025; 96374; 99285; J0780

== ENCOUNTER → 2022-08-18 13:12 | Outpatient (BNVA) | payer MEDICARE, MEDICAID, OTHER, SELFPAY | PROVIDERS: PCP Family Medicine; Visit Provider Family Medicine | DX: I10 Essential (primary) hypertension (principal); E11.9 Type 2 diabetes mellitus without complications; M25.511 Pain in right shoulder; M25.561 Pain in right knee; M25.562 Pain in left knee; Z13.220 Encounter for screening for lipoid disorders | CPT/HCPCS: 80061; 83036 ==

== ENCOUNTER → 2022-11-16 09:25 | Outpatient (BNVA) | payer MEDICARE, MEDICAID, SELFPAY | PROVIDERS: PCP Family Medicine; Visit Provider Specialist | DX: G43.711 Chronic migraine without aura, intractable, with status migrainosus (principal); F41.1 Generalized anxiety disorder; F60.3 Borderline personality disorder; G25.0 Essential tremor; Z79.891 Long term (current) use of opiate analgesic; G37.9 Demyelinating disease of central nervous system, unspecified; M79.7 Fibromyalgia | CPT/HCPCS: 99214 ==

== ENCOUNTER → 2022-11-17 07:53 | Outpatient (BNVA) | payer MEDICARE, MEDICAID, SELFPAY | PROVIDERS: PCP Family Medicine; Visit Provider Orthopaedic Surgery | DX: M47.22 Other spondylosis with radiculopathy, cervical region (principal); Z98.1 Arthrodesis status | CPT/HCPCS: 72040; 99214 ==

== ENCOUNTER 2022-12-15 11:22 | Outpatient (CLI) | payer MEDICARE, MEDICAID, SELFPAY ==
--- NOTE | 2022-12-15 07:30 | IR_ITS ---
WS: [id number] MYELOGRAM CERVICAL SPINE Fluoroscopic guided cervical myelogram CLINICAL INFORMATION: neck oain COMPARISON: CT myelogram 2017 TECHNIQUE: The procedure, including risks, benefits, and complications, were discussed with the patie nt who agreed to proceed. A timeout was performed to confirm correct patient, procedure, and site. Using sterile technique, the patient was prepped and draped in the usual sterile fashion. After admin istration of local anesthesia using 1% preservative-free lidocaine and using fluoroscopic guidance, a 22-gauge spinal needle was advanced into the subarachnoid space at L2-L3 level. Subsequently 13 cc o f Omnipaque 240 was administered into the thecal sac. The needle was removed and hemostasis was achie mary. Subsequently the table was tilted down and contrast flowed freely into the cervical spine. Spot fluoroscopic images were obtained. FLUOROSCOPIC TIME: 2min [id number] # of spot films: 7 Spot fluoroscopic images demonstrate straightening of the normal cervical lordosis. ACDF C5-C7. Osteo penia. Please see CT myelogram report for additional detail. IR/IR myelogram sp cervical [id number] IMPRESSION: 1. Uncomplicated cervical myelogram. 2. Please see CT myelogram report for anatomic detail.
--- NOTE | 2022-12-15 10:30 | CT_ITS ---
WS: [id number] CT CERVICAL MYELOGRAM TECHNIQUE: CT of the cervical spine coronal and sagittal reformatted images post intrathecal administ ration of contrast. CLINICAL INFORMATION: M47.22 - Other spondylosis with radiculopathy, cervical r... COMPARISON: 2017 DLP: 169.[address] scans at [facility] use at least one of these dose optimization techniques: automated e xposure control; mA and/or kV adjustment per patient size (includes targeted exams where dose is matc hed to clinical indication); or iterative reconstruction. FINDINGS: Straightening of the normal cervical lordosis. ACDF C5-C7. No high-grade central canal stenosis.Cervi lovely fusion is new compared to the prior myelogram 2017. C2-C3: Moderate facet arthropathy. Spinal canal and foramen are patent. C3-C4: Moderate to advanced RIGHT facet arthropathy. Mild RIGHT and no significant LEFT foraminal mila rowing. Spinal canal is patent. C4-C5: Tiny shallow central protrusion. Slight contact of the cervical cord. Mild to moderate facet a rthropathy. Mild LEFT foraminal narrowing. C5-C6: ACDF. Spinal canal is patent. Moderate LEFT and mild RIGHT bony foraminal narrowing. Moderate facet arthropathy. C6-C7: ACDF. Mild LEFT greater than RIGHT bony foraminal narrowing. Spinal canal is patent. C7-T1: ACDF. Spinal canal and foramen are patent. Visualized posterior fossa structures: Normal. CT/CT cervical spine w con [id number] IMPRESSION: 1. Straightening of the normal cervical lordosis. Slight anterolisthesis C3 on C4. ACDF C5-C7. 2. No evidence of hardware loosening. 3. No significant central canal stenosis. 4. Moderate LEFT C5-C6 bony foraminal narrowing. Mild LEFT C6-C7 bony foramina l narrowing. Mild RIGHT C3-C4 and mild LEFT C4-C5 bony foraminal narrowing. 5. Moderate RIGHT facet arthropathy C3-C4 and C4-C5.
== END 2022-12-15 11:23 | disposition home or self-care (01) ==
LOC: RAD 11:25
PROVIDERS: PCP Family Medicine; Visit Provider Orthopaedic Surgery
DX: M47.22 Other spondylosis with radiculopathy, cervical region (principal)
CPT/HCPCS: 62302; 72126; Q9966

== ENCOUNTER → 2023-01-05 12:50 | Outpatient (BNVA) | payer MEDICARE, MEDICAID, SELFPAY | PROVIDERS: PCP Family Medicine; Visit Provider Orthopaedic Surgery | DX: M47.812 Spondylosis without myelopathy or radiculopathy, cervical region (principal) | CPT/HCPCS: 99214 ==

== ENCOUNTER → 2023-01-06 08:09 | Outpatient (BNVA) | payer MEDICARE, MEDICAID, SELFPAY | PROVIDERS: PCP Family Medicine; Visit Provider Family Medicine | DX: R73.03 Prediabetes (principal); E78.00 Pure hypercholesterolemia, unspecified; Z13.220 Encounter for screening for lipoid disorders; Z51.81 Encounter for therapeutic drug level monitoring; E55.9 Vitamin D deficiency, unspecified | CPT/HCPCS: 80053; 80061; 82306; 83036; 85025 ==

== ENCOUNTER → 2023-07-01 14:51 | Outpatient (BNVA) | payer MEDICARE, MEDICAID, SELFPAY | PROVIDERS: PCP Family Medicine; Referring Provider Family Medicine; Visit Provider Dermatology | DX: L30.9 Dermatitis, unspecified (principal); L57.0 Actinic keratosis; L82.1 Other seborrheic keratosis; L81.4 Other melanin hyperpigmentation; L57.8 Other skin changes due to chronic exposure to nonionizing radiation | CPT/HCPCS: 11102; 17000; 99203 ==

== ENCOUNTER → 2023-10-14 10:22 | Outpatient (BNVA) | payer MEDICARE, MEDICAID, OTHER, SELFPAY | PROVIDERS: PCP Family Medicine; Visit Provider Family Medicine | DX: I10 Essential (primary) hypertension (principal); E11.9 Type 2 diabetes mellitus without complications; E10.9 Type 1 diabetes mellitus without complications; Z00.00 Encounter for general adult medical examination without abnormal findings | CPT/HCPCS: 80053; 80061; 83036; 85025 ==

== ENCOUNTER 2023-12-07 09:35 | Outpatient (CLI) | payer MEDICARE, MEDICAID, SELFPAY ==
--- NOTE | 2023-12-07 10:30 | MM_ITS ---
WS: [id number] BILATERAL 3D TOMOSYNTHESIS DIGITAL SCREENING MAMMOGRAPHY WITH CAD CLINICAL INFORMATION: Screening mammogram HISTORY: Screening mammogram. Breast pain COMPARISON: 2021 TECHNIQUE: Bilateral CC and MLO views. FINDINGS: Scattered fibroglandular densities bilaterally. No suspicious focal mass, asymmetry, calcifications, or architectural distortion. No evidence of malignancy. Vascular calcifications. Incidental punctate and lucent centered calcifications. IMPRESSION: MM/[place] [id number] BI-RADS: 2-Benign FOLLOW UP: 1 Year Follow-up Recommend return to annual screening mammography.
== END 2023-12-07 09:36 | disposition home or self-care (01) ==
LOC: RAD 09:36
PROVIDERS: PCP Family Medicine; Visit Provider Family Medicine
DX: Z12.31 Encounter for screening mammogram for malignant neoplasm of breast (principal)
CPT/HCPCS: 77063; 77067

== ENCOUNTER 2024-01-05 11:45 | Emergency (ER) | payer MEDICARE, MEDICAID, SELFPAY ==
--- NOTE | 2024-01-05 11:51 | CTR_ITS ---
PROCEDURE INFORMATION: Exam: CT Head Without Contrast Exam date and time: 01/05/2024 12:06 PM Age: 68 years old Clinical indication: Injury or trauma; Fall; Blunt trauma (contusions or hematomas); Consciousness not specified TECHNIQUE: Imaging protocol: Computed tomography of the head without contrast. Radiation optimization: All CT scans at this facility use at least one of these dose optimization techniques: automated exposure control; mA and/or kV adjustment per patient size (includes targeted exams where dose is matched to clinical indication); or iterative reconstruction. COMPARISON: CT head wo con* [id number] 10/27/2021 6:16 PM RADIATION DOSE METRICS: Total DLP (mGy-cm): 1165.9 FINDINGS: Brain: There is dnzf-or-fkmzbleh small vessel disease. There is a an acute left convexity subdural hematoma measuring up to 4 mm in diameter. There is no midline shift. Cerebral ventricles: No ventriculomegaly. Paranasal sinuses: Visualized sinuses are unremarkable. No fluid levels. Mastoid air cells: Visualized mastoid air cells are well aerated. Bones: Unremarkable. No acute fracture. Soft tissues: There is extensive right frontal/temporal scalp hematoma. CT/CT head wo con* [id number] IMPRESSION: Small acute left convexity subdural hematoma without significant mass effect or midline shift.
--- NOTE | 2024-01-05 11:51 | XRR_ITS ---
PROCEDURE INFORMATION: Exam: XR Cervical Spine Exam date and time: 01/05/2024 12:31 PM Age: 68 years old Clinical indication: Injury or trauma; Fall; Blunt trauma; Injury date: 01/04/24 & 01/05/24; Patient HX: PT fell last night and this morning; Swelling on face; HX of ms TECHNIQUE: Imaging protocol: Radiologic exam of the cervical spine. Views: 2 or 3 views. COMPARISON: CT cervical spine w con [id number] 12/15/2022 12:02 PM FINDINGS: Bones/joints: The patient is status post anterior cervical fusion at C5-C6. Alignment is maintained. There is [id number] multilevel degenerative disc disease and spondylosis. Soft tissues: Unremarkable. XR/XR cervical spine 3V* [id number] IMPRESSION: Status post anterior cervical fusion with good anatomic alignment.
[2024-01-05 11:55] VITALS: BP 153/87; PULSE 92; RESP 16; TEMP 36.5; O2SAT 95
--- NOTE | 2024-01-05 12:00 | CTR_ITS ---
PROCEDURE INFORMATION: Exam: CT Maxillofacial Without Contrast Exam date and time: 01/05/2024 12:06 PM Age: 68 years old Clinical indication: Injury or trauma; Fall; Blunt trauma (contusions or hematomas); Orbit/periorbital; Right TECHNIQUE: Imaging protocol: Computed tomography of the face without contrast. Radiation optimization: All CT scans at this facility use at least one of these dose optimization techniques: automated exposure control; mA and/or kV adjustment per patient size (includes targeted exams where dose is matched to clinical indication); or iterative reconstruction. COMPARISON: CT head wo con* [id number] 01/05/2024 12:06 PM RADIATION DOSE METRICS: Total DLP (mGy-cm): 577.2 FINDINGS: Orbital cavities: Orbits are normal. Globes are unremarkable. Bones: No acute fracture. Paranasal sinuses: There is mild paranasal sinus mucosal thickening. Soft tissues: There is extensive right frontal scalp/periorbital hematoma. CT/CT facial bones wo con* [id number] IMPRESSION: No evidence of acute fracture.
--- NOTE | 2024-01-05 12:09 | ED_ITS ---
HPI - Fall 2 General: Chief Complaint: Fall Stated Complaint: fall Time Seen by Provider: 01/05/24 11:46 Source: patient Mode of arrival: EMS History of Present Illness: 68 yo female presetns to the ER with com plaints of a fall She fell twice - once last night and again this morning. Unknown LOC, patient relates she was at home alone she fell was unable to get up later she tried to get up and then fell again. Pt has significant swelling on the face. Pt reports she has MS. She is not on any anticoagulants. She states she fell because she stumbled she has a history of MS which contributes to frequent falls for her. complaint: fall Onset (ago): hour(s) Fall from: standing Place fall occurred: home Loss of consciousness: None Symptoms prior to fall: lightheadedness and dizziness Location of injury: head, face and neck Associated symptoms-after fall: Denies abdominal pain, chest pain or neck pain Review of Systems 2 Const: Denies: fever(s) or chills Card: Denies: chest pain Resp: Denies: dyspnea GI: Denies: abdominal pain : Denies: dysuria, urinary frequency or urinary urgency Musc: Denies: neck pain or back pain Skin/Breast: Denies: rash PFSH ED 2 PFSH: Medical History Nausea and vomiting in adult Polysubstance use disorder History of polysubstance use disorder, including benzodiazepines Psychiatric care GERD (gastroesophageal reflux disease) Gastritis Myalgia Hypercholesteremia Diagnosed in 2009 and is controlled with medication managed by PMD Diabetes mellitus Diagnosed in 2014 and she is currently on metformin. She states that her last hemoglobin A1c was high Chronic hypertension Diagnosed in 2009 and controlled on medication managed by primary care provider No pertinent past medical history Denies: Asthma seizures, DVT/PE PCP: Dr. Coronado Borderline personality disorder Major depressive disorder, recurrent severe without psychotic features 2014 currently on medication and follows up with [facility] Long-term current use of opiate analgesic Cervical facet syndrome Chronic radicular low back pain Has had surgery for chronic lower back pain. Surgical History History of colonoscopy History of esophagogastroduodenoscopy (EGD) S/P placement of nerve stimulator S/P removal by Dr Krishnamurthy in 2021. Hx of cholecystectomy 2012-laparoscopic procedure by Dr. Barahona at [facility] [place] Hx of cervical spine surgery (~03/24/18) Dr Watts 03/24/18 Comments: Cervical laminectomy for placement of intraspinal, epidural paddle electrode arrays and placement of subcutaneous pulse generator. Hx of hysterectomy Had a total abdominal hysterectomy via Pfannenstiel incision for pelvic inflammatory disease per patient. She states that both tubes, uterus and the left ovary were removed. She only has her right ovary remaining at this time. Family History Mother Diabetes Heart disease Hyperlipidemia Brother Hypertension x 2 Sister Breast cancer Diagnose at age 35 Brother Lung cancer Denies family history of Colon cancer Ovarian cancer Anesthesia complication Bleeding disorder Uterine cancer Thyroid disease Stroke Social History Smoking and tobacco/nicotine status: current every day tobacco/nicotine user cigarettes Packs smoked per day: 0.15 Years cigarettes smoked: 49 Quit status (tobacco/nicotine): has tried quititng Number of times tried to quit tobacco: 10 Second hand smoke exposure: No Alcohol intake: former Substance/Drug Use: former Lives independently: Yes Household members: none Current occupational status: disabled Physical Exam 2 Const: GENERAL APPEARANCE: cooperative and comfortable O RIENTATION/CONSCIOUSNESS: Yes awake, Yes oriented to person, Yes oriented to place and Yes oriented to time HENMT: COMMON NORMALS: normocephalic and hearing grossly normal bilaterally HEAD & SCALP: normocephalic OTHER: significant facial swelling and ecchymosis - L mandible and R yarsani Resp: COMMON NORMALS: normal respiratory effort, No retractions, No use of accessory muscles and clear to auscultation bilaterally AUSCULTATION: clear to auscultation bilaterally Cardio: COMMON NORMALS: regular rate, regular rhythm and No murmurs present (Cardio) RATE: regular rate RHYTHM: regular rhythm GI: COMMON NORMALS: Soft to palpation and No hepatosplenomegaly present A USCULTATION: Yes normoactive bowel sounds PALPATION: Yes Soft to palpation, No Tenderness to palpation present (GI), No Guarding due to palpation present (GI) and Yes No hepatosplenomegaly present Extremity: COMMON NORMALS: normal to inspection, capillary refill normal, no clubbing, cyanosis or edema, no calf tenderness and no pedal edema Neuro: SENSORIUM/ORIENTATION: Yes oriented to person, Yes oriented to place and Yes oriented to time Skin: COMMON NORMALS: no rashes or lesions noted GENERAL SKIN EXAM: no rashes or lesions noted Course 2 Vital Signs: Vital signs: Vital Signs Temperature 97.7 F 01/05/24 11:55 Pulse Rate 85 01/05/24 13:48 Respiratory Rate 15 01/05/24 13:48 Blood Pressure 140/73 01/05/24 13:48 Pulse Oximetry 94 01/05/24 13:48 MDM - Fall Medical Decision Making Fall with findings of subdural hematoma. No other injuries still quite a bit of facial hematoma but her CT facial bones did not show fracture. Will transfer to [facility] ER to ER for trauma since we do not have neurosurgery at our facility. Medical Records I reviewed the patient's medical records. Lab Data I reviewed the patient's lab results. 01/05/24 12:00 01/05/24 13:17 Radiology Impressions Cervical Spine X-Ray 01/05/24 11:51 IMPRESSION: Status post anterior cervical fusion with good anatomic alignment. Head CT 01/05/24 11:51 IMPRESSION: Small acute left convexity subdural hematoma without significant mass effect or midline shift. ADDENDUM: 01/05/24 1234 THIS REPORT CONTAINS FINDINGS THAT MAY BE CRITICAL TO PATIENT CARE. The findings were verbally communicated via telephone conference with KATYA NÚÑEZ at 12:31 PM CDT on 01/05/2024. The findings were acknowledged and understood. Face CT 01/05/24 12:00 IMPRESSION: No evidence of acute fracture. Elbow X-Ray 01/05/24 12:59 IMPRESSION: No acute findings. Laboratory Results WBC 12.54 10^3/uL (3.29-11.43) H 01/05/24 12:00 RBC 4.71 10^6/uL (3.85-5.65) 01/05/24 12:00 Hgb 13.90 g/dL (11.27-16.99) 01/05/24 12:00 Hct 40.4 % (36-47) 01/05/24 12:00 MCV 85.8 fl (85-98) 01/05/24 12:00 MCH 29.5 pg (27-33) 01/05/24 12:00 MCHC 34.4 g/dL (30-55) 01/05/24 12:00 RDW 12.7 % (12.1-15.1) 01/05/24 12:00 Plt Count 314 10^3/cmm (157-399) 01/05/24 12:00 MPV 9.7 fL (7.4-10.4) 01/05/24 12:00 Neut % (Auto) 77.9 % 01/05/24 12:00 Lymph % (Auto) 13.4 % 01/05/24 12:00 Vance % (Auto) 7.1 % 01/05/24 12:00 Eos % (Auto) 0.5 % 01/05/24 12:00 Baso % (Auto) 0.5 % 01/05/24 12:00 Neut # (Auto) 9.78 10^3/uL (1.8-7.7) H 01/05/24 12:00 Lymph # (Auto) 1.7 10^3/uL (0.8-4.8) 01/05/24 12:00 Vance # (Auto) 0.9 10^3/uL (0.2-0.9) 01/05/24 12:00 Eos # (Auto) 0.1 10^3/uL (0.0-0.8) 01/05/24 12:00 Baso # (Auto) 0.1 10^3/uL (0.0-0.1) 01/05/24 12:00 Nucleated RBC % (auto) 0 % 01/05/24 12:00 Nucleated RBCs # 0.0 /100WBC 01/05/24 12:00 PT 12.80 SECONDS (12.1-14.9) 01/05/24 13:17 INR 0.94 (0.8-1.2) 01/05/24 13:17 Sodium 138 mmol/L (136-145) 01/05/24 13:17 Potassium 3.2 mmol/L (3.5-5.1) L 01/05/24 13:17 Chloride 98 mmol/L (98-107) 01/05/24 13:17 Carbon Dioxide 27 mmol/L (22-29) 01/05/24 13:17 Anion Gap 16.2 (5-19) 01/05/24 13:17 BUN 11 mg/dL (8-23) 01/05/24 13:17 Creatinine 0.6 mg/dL (0.5-0.9) 01/05/24 13:17 GFR Calculation 99.1 mL/min (90-130) 01/05/24 13:17 Glucose 122 mg/dL (65-115) H 01/05/24 13:17 Calculated Osmolality 287 mOsm/kg (285-295) 01/05/24 13:17 Calcium 9.8 mg/dL (8.5-10.5) 01/05/24 13:17 Total Bilirubin 0.3 mg/dL (0.15-1.2) 01/05/24 13:17 AST 17 U/L (0-32) 01/05/24 13:17 ALT 9 U/L (0-33) 01/05/24 13:17 Alkaline Phosphatase 55 U/L (35-105) 01/05/24 13:17 Total Protein 7.5 g/dL (6.6-8.7) 01/05/24 13:17 Albumin 4.4 g/dL (3.5-5.2) 01/05/24 13:17 Globulin 3.1 g/dL (1.3-4.6) 01/05/24 13:17 All radiology interpretation(s) finalized by discharge Discharge Plan Discharge Patient Disposition: Transfer to ED Clinical Impression: Acute subdural hematoma Condition: Stable Prescriptions: No Action duloxetine 60 mg capsule,delayed release(DR/EC) 120 mg PO DAILY Qty: 180 0RF trazodone 100 mg tablet 300 mg PO BEDTIME PRN (Reason: sleep) Qty: 270 0RF Rx Instructions: May take 2-3 tablets at bedtime as needed for sleep hydroxyzine HCl 50 mg tablet 50 mg PO QID PRN (Reason: insomnia/anxiety) Qty: 120 2RF zolpidem [Ambien CR] 12.5 mg tablet,ext release multiphase 12.5 mg PO .hs PRN (Reason: insomnia) Qty: 30 1RF (DME) 2L Oxygen via nc See Rx Instructions .Route .MEDSUPPLY Qty: 1 0RF Rx Instructions: As directed propranolol 10 mg tablet 10 mg PO BID Qty: 180 3RF pantoprazole 40 mg tablet,delayed release (DR/EC) 40 mg PO DAILY Qty: 90 3RF promethazine 25 mg tablet 25 mg PO Q6H PRN (Reason: nausea and vomiting) Qty: 60 2RF atorvastatin 20 mg tablet 20 mg PO BEDTIME@2000 Qty: 30 10RF solifenacin [Vesicare] 10 mg tablet 10 mg PO DAILY Qty: 30 6RF alendronate 70 mg tablet See Rx Instructions .ROUTE .COMPLEX Qty: 12 2RF Dose Instruction: TAKE 1 TABLET BY MOUTH EVERY WEEK WHILE SITTING. DO NOT LIE DOWN WITHIN 30 MINUTES OF TAKING MEDICATION Rx Instructions: TAKE 1 TABLET BY MOUTH EVERY WEEK WHILE SITTING. DO NOT LIE DOWN WITHIN 30 MINUTES OF TAKING MEDICATION acetaminophen [Tylenol] 325 mg Tablet 325 mg PO QID PRN (Reason: Pain) acyclovir 400 mg tablet 400 mg PO BID primidone 50 mg tablet 100 mg PO DAILY amlodipine 5 mg tablet 5 mg PO DAILY hydrochlorothiazide 12.5 mg capsule 12.5 mg PO DAILY losartan 100 mg tablet 100 mg PO DAILY Symbicort 80-4.5 mcg/actuation HFA aerosol inhaler 2 puff inhalation BID Vitamin D3 50 mcg (2,000 unit) tablet 50 mcg PO DAILY dalfampridine 10 mg tablet extended release 12 hr 10 mg PO Q12H oxycodone 10 mg tablet 10 mg PO DAILY Referrals: Darryl Coronado MD [Primary Care Provider] - Coding Level of Care Code ED [employer] for Teresa Ewing
[2024-01-05 12:22] LABS: Basophils # 0.1 10^3/uL (0.0-0.1); Basophils % 0.5 %; Eosinophils # 0.1 10^3/uL (0.0-0.8); Eosinophils % 0.5 %; Hematocrit 40.4 % (36-47); Lymphocytes # 1.7 10^3/uL (0.8-4.8); Lymphocytes % 13.4 %; Mean Corpuscular HGB Conc 34.4 g/dL (30-55); Mean Corpuscular Hemoglobin 29.5 pg (27-33); Mean Corpuscular Volume 85.8 fl (85-98); Mean Platelet Volume 9.7 fL (7.4-10.4); Monocytes # 0.9 10^3/uL (0.2-0.9); Monocytes % 7.1 %; Neutrophils # 9.78 10^3/uL (1.8-7.7); Neutrophils % 77.9 %; Nucleated Red Blood Cells % 0 %; Platelet Count 314 10^3/cmm (157-399); Red Blood Count 4.71 10^6/uL (3.85-5.65); Red Cell Distribution Width 12.7 % (12.1-15.1); White Blood Count 12.54 10^3/uL (3.29-11.43)
--- NOTE | 2024-01-05 12:59 | XRR_ITS ---
PROCEDURE INFORMATION: Exam: XR Left Elbow Exam date and time: 01/05/2024 12:40 PM Age: 68 years old Clinical indication: Injury or trauma; Blunt trauma (contusions or hematomas); Injury date: 01/05/24; Patient HX: Fall; C/O left elbow pain TECHNIQUE: Imaging protocol: Radiologic exam of the left elbow. Views: 1 or 2 views. COMPARISON: No relevant prior studies available. FINDINGS: Bones/joints: Normal. Soft tissues: Normal. XR/XR elbow LT 2V [id number] IMPRESSION: No acute findings.
[2024-01-05 13:08] VITALS: BP 140/73; PULSE 85; RESP 15; O2SAT 94
--- NOTE | 2024-01-05 13:08 | PC.NURSE ---
report called to [facility] in [place] to Gwen Conroy. No further questions were verbalized at end of report.
[2024-01-05 13:37] LABS: INR 0.94 (0.8-1.2)
[2024-01-05 13:43] LABS: Alanine Aminotransferase 9 U/L (0-33); Albumin Level 4.4 g/dL (3.5-5.2); Alkaline Phosphatase 55 U/L (35-105); Anion Gap 16.2 (5-19); Aspartate Amino Transferase 17 U/L (0-32); Blood Urea Nitrogen 11 mg/dL (8-23); Calcium 9.8 mg/dL (8.5-10.5); Carbon Dioxide 27 mmol/L (22-29); Chloride 98 mmol/L (98-107); Creatinine Clr Calc Pharmacy 61.9111; Globulin 3.1 g/dL (1.3-4.6); Glomerular Filtration Rate 99.1 mL/min (90-130); Glucose 122 mg/dL (65-115); Osmolality Calculated 287 mOsm/kg (285-295); Potassium 3.2 mmol/L (3.5-5.1); Sodium 138 mmol/L (136-145); Total Bilirubin 0.3 mg/dL (0.15-1.2); Total Protein 7.5 g/dL (6.6-8.7)
[2024-01-05 13:48] VITALS: BP 140/73; PULSE 85; RESP 15; O2SAT 94
== END 2024-01-05 13:52 ==
PROVIDERS: Emergency Provider Family Medicine; PCP Family Medicine
DX: I62.01 Nontraumatic acute subdural hemorrhage (principal); F17.210 Nicotine dependence, cigarettes, uncomplicated; E11.9 Type 2 diabetes mellitus without complications; I10 Essential (primary) hypertension; G35 Multiple sclerosis; W19.XXXA Unspecified fall, initial encounter
CPT/HCPCS: 36415; 70450; 70486; 72040; 73070; 80053; 85025; 85610; 99284

== ENCOUNTER → 2024-01-14 13:53 | Outpatient (BNVA) | payer MEDICARE, MEDICAID, SELFPAY | PROVIDERS: PCP Family Medicine; Visit Provider Specialist | DX: G37.9 Demyelinating disease of central nervous system, unspecified (principal); M48.02 Spinal stenosis, cervical region; S06.5XAA Traumatic subdural hemorrhage with loss of consciousness status unknown, initial encounter; R41.3 Other amnesia; F33.2 Major depressive disorder, recurrent severe without psychotic features; R26.9 Unspecified abnormalities of gait and mobility; X58.XXXA Exposure to other specified factors, initial encounter; F17.210 Nicotine dependence, cigarettes, uncomplicated | CPT/HCPCS: 99215 ==

== ENCOUNTER 2024-01-18 07:59 | Observation (INO) | payer MEDICARE, MEDICAID, SELFPAY ==
[2024-01-18] VITALS (11 sets, daily range): BP systolic 115–140; BP diastolic 67–76; PULSE 63–82; RESP 16–18; TEMP 36.4–36.8; O2SAT 91–96; BMI 30.2; BMI 28.6
--- NOTE | 2024-01-18 08:08 | CT_ITS ---
WS: [id number] CT HEAD NONCONTRAST HISTORY: recent head injury with mse TECHNIQUE: Contiguous axial imaging performed through the brain in 2.5 mm imaging. Bone and soft tiss ue windows. Sagittal and coronal reformats reviewed. All CT scans at [facility] use at least one of these dose optimization techniques: automated exposure control; mA and/or kV adjustment per pa tient size (includes targeted exams where dose is matched to clinical indication); or iterative recon struction. DLP: 1049.98 mGy.cm COMPARISON: 01/05/2024 No residual LEFT frontal subdural hematoma. No new acute blood products are identified. Mild atrophy and moderate small vessel ischemic type changes. Ventricles: Normal size with no hydrocephalus. No inferior displacement of cerebellar tonsils. Paranasal sinuses: As visualized are clear. Mastoid air cells: Well pneumatized. Calvarium and scalp: No skull fractures. There is mild motion artifact obscuring some detail. Large e volving scalp hematoma centered over the RIGHT frontal and temporal regions. This was also seen on 01/05/2024 with mild improvement. No new area of hemorrhage. CT/CT head wo con* [id number] IMPRESSION: 1. Interval resolution of the small recently described LEFT subdural hematoma. No new acute blood products. 2. Persistent but improving large scalp hematoma centered over the RIGHT front al bone. 3. Mild atrophy and moderate small vessel ischemic changes are stable.
--- NOTE | 2024-01-18 08:08 | XRR_ITS ---
PROCEDURE INFORMATION: Exam: XR Chest Exam date and time: 01/18/2024 8:10 AM Age: 68 years old Clinical indication: Other: AMS; Patient HX: Hallucinations; Additional info: Mse TECHNIQUE: Imaging protocol: Radiologic exam of the chest. Views: 1 view. COMPARISON: CR XR chest 2V* [id number] 02/16/2022 2:21 PM FINDINGS: Lungs: Unremarkable. No consolidation. Pleural spaces: Unremarkable. No pleural effusion. No pneumothorax. Heart/Mediastinum: Unremarkable. No cardiomegaly. Bones/joints: Prior anterior cervical fusion. XR/XR chest 1V portable [id number] IMPRESSION: No acute findings.
--- NOTE | 2024-01-18 08:29 | ED_ITS ---
HPI - Altered Mental Status 2 General: Chief Complaint: Altered Mental Status Stated Complaint: HALLUCINATIONS Time Seen by Provider: 01/18/24 08:02 Source: EMS Mode of arrival: EMS Limitations: altered mental status History of Present Illness: This patient was brought to the emergency department by EMS. Apparently patient was found in her yard this morning and police department was notified who subsequently notified EMS. She apparently the patient is confused and stating that her friend had left her. She currently denies any complaint other than she states she has a headache. She apparently had a recent fall. She states that she knows where she is that she lives alone. complaint: altered mental status and confusion Review of Systems 2 Eyes: Denies: change in vision Card: Denies: chest pain or palpitations Resp: Denies: productive cough or non-productive cough GI: Denies: nausea, vomiting or diarrhea : Denies: difficulty voiding or dysuria Neuro: Reports: headache(s); Denies: numbness in extremities or weakness in extremities PFS ED 2 PFSH: Medical History Nausea and vomiting in adult Polysubstance use disorder History of polysubstance use disorder, including benzodiazepines Psychiatric care GERD (gastroesophageal reflux disease) Gastritis Myalgia Hypercholesteremia Diagnosed in 2009 and is controlled with medication managed by PMD Diabetes mellitus Diagnosed in 2014 and she is currently on metformin. She states that her last hemoglobin A1c was high Chronic hypertension Diagnosed in 2009 and controlled on medication managed by primary care provider No pertinent past medical history Denies: Asthma seizures, DVT/PE PCP: Dr. Coronado Borderline personality disorder Major depressive disorder, recurrent severe without psychotic features 2014 currently on medication and follows up with [facility] [place] Long-term current use of opiate analgesic Cervical facet syndrome Chronic radicular low back pain Has had surgery for chronic lower back pain. Surgical History History of colonoscopy History of esophagogastroduodenoscopy (EGD) S/P placement of nerve stimulator S/P removal by Dr Krishnamurthy in 2021. Hx of cholecystectomy 2011-laparoscopic [place]. Barahona [place] [facility] [place]x of cervical spine surgery (~03/24/18) Dr Watts 03/24/18 Comments: Cervical laminectomy for placement of intraspinal, epidural paddle electrode arrays and placement of subcutaneous pulse generator. Hx of hysterectomy Had a total abdominal hysterectomy via Pfannenstiel incision for pelvic inflammatory disease per patient. She states that both tubes, uterus and the left ovary were removed. She only has her right ovary remaining at this time. Family History Mother Diabetes Heart disease Hyperlipidemia Brother Hypertension x 2 Sister Breast cancer Diagnose at age 35 Brother Lung cancer Denies family history of Colon cancer Ovarian cancer Anesthesia complication Bleeding disorder Uterine cancer Thyroid disease Stroke Social History Smoking and tobacco/nicotine status: current every day tobacco/nicotine user cigarettes Packs smoked per day: 0.15 Years cigarettes smoked: 49 Quit status (tobacco/nicotine): has tried quititng Number of times tried to quit tobacco: 10 Second hand smoke exposure: No Alcohol intake: former Substance/Drug Use: former Lives independently: Yes Household members: none Current occupational status: disabled Physical Exam 2 Narrative: The patient is alert and will respond to questions but is quite disheveled. Const: COMMON NORMALS: average body habitus and alert GENERAL APPEARANCE: a nxious and disheveled ORIENTATION/CONSCIOUSNESS: Yes awake, Yes oriented to person and Yes oriented to place HENMT: COMMON NORMALS: Normal external nose present and Normal nasal mucous membranes and turbinates present; oropharynx not normal (Poor oral hygiene) HEAD & SCALP: contusion (Right forehead and periorbital); no palpable skull fracture FACE & SINUS: face symmetric NOSE: Normal external nose present and Normal nasal mucous membranes and turbinates present Eye: COMMON NORMALS: Equal, round and reactive pupils present and EOMs intact bilaterally SCLERA: scleral abnormal (She has a subconjunctival hemorrhage right) PUPIL: Yes Equal, round and reactive pupils present Neck/C-Spine: COMMON NORMALS: full ROM CERVICAL SPINE: No Cervical spine tenderness and No step off deformity Chest: COMMONS NORMALS: normal inspection of the chest Resp: COMMON NORMALS: normal respiratory effort, No retractions and No use of accessory muscles Cardio: COMMON NORMALS: regular rate, regular rhythm, No murmurs present (Cardio) and Peripheral pulses 2+ throughout RATE: regular rate RHYTHM: r egular rhythm PERIPHERAL PULSES: Peripheral pulses 2+ throughout GI: COMMON NORMALS: Soft to palpation and non-tender PALPATION: Yes Soft to palpation : COMMON NORMALS: Yes no CVA tenderness BLADDER/KIDNEY EXAM: Yes no CVA tenderness Back/Pelvis: COMMON NORMALS: no CVA tenderness, thoracic and lumbar spine normal to inspection and no thoracic nor lumbar tenderness Extremity: COMMON NORMALS: normal to inspection, full ROM and capillary refill normal Neuro: COMMON NORMALS: moves all extremities, no focal motor deficits and no sensory deficits noted SENSORIUM/ORIENTATION: Yes alert, Yes oriented to person and Yes oriented to place Psych: COMMON NORMALS: cooperative APPEARANCE: Yes unkempt SPEECH: Yes slow MOOD & AFFECT: Yes anxious THOUGHT PROCESS: disorganized Skin: COMMON NORMALS: no rashes or lesions noted and turgor normal GENERAL SKIN EXAM: no rashes or lesions noted and turgor normal Course 2 Reevaluation(s): Reevaluation #1: Patient his friend is here who supports that the patient is a little bit more confused than usual today. She also collaborates the history that apparently the patient was out in the yard and then noted by neighbors who called PD and EMS. Patient does admit to be that she has been somewhat depressed but she has no memory of what occurred to her earlier today. We discussed observation and further clearance to ensure her delirium clears and then she in fact may need psychiatric consultation as well. Time: 10:59 Reevaluation #2: Patient was evaluated by Dr. Meza who will place in observation and makes medication adjustments Time: 11:38 Consultations: Consultation #1: Discussed with Dr. Meza who will see her in the emergency department Time: 11:05 Vital Signs: Vital signs: Vital Signs Temperature 97.7 F 01/18/24 08:02 Pulse Rate 82 01/18/24 09:31 Respiratory Rate 18 01/18/24 09:31 Blood Pressure 140/76 01/18/24 08:12 Pulse Oximetry 95 01/18/24 09:31 Oxygen Delivery Me thod Room Air 01/18/24 09:31 MDM - Altered Mental Status Medical Decision Making This patient was brought to the emergency department by EMS after neighbors found her wandering in the yard. EMS arrived as well as Police Department she was transported to Emergency Department for reevaluation. History is that she had a fall recently and suffered a contusion to her right face with his left subdural hematoma and was transferred to another facility. She is subsequently being discharged and returned home. On presentation she was disheveled appearing but is able to tell me her name and her current location and the context of why she was here. Her clinical exam was nonfocal other than large contusion to her right forehead and face which was just to be several days old. She had no other focal findings on her clinical exam. Workup was initiated to ensure that there is no increasing intracranial mass bleeding etc. as well as possible infection, intoxication, other potential etiologies to her delirium. Imaging was reassuring and in that there was no acute change in fact her previous subdural hematoma had decreased in volume. Laboratories were unremarkable for any evidence of leukocytosis anemia hypoglycemia etc. She did have opiates and barbiturates present on her urine drug screen. She also had slightly abnormal urinalysis but did have a normal chest x-ray. Subsequently a close friend came who corroborated her story and that she seemed to be more confused than usual but also that she had had some depressive issues recently. The patient was adamant that she had not had any medication misadventures. Because of her delirium, living alone, incomplete resolution of her symptoms based upon her clinical exam as well as input from friends it was felt that she would be best served by continued observation. There was also an issue of whether there is underlying mental health issues but this will need to be addressed once her delirium clears more. Medical Records I reviewed the patient's medical records. Prior history of bipolar disorder Lab Data I reviewed the patient's lab results. 01/18/24 09:05 01/18/24 09:05 Radiology Impressions Chest X-Ray 01/18/24 08:08 IMPRESSION: No acute findings. Head CT 01/18/24 08:08 IMPRESSION: 1. Interval resolution of the small recently described LEFT subdural hematoma. No new acute blood products. 2. Persistent but improving large scalp hematoma centered over the RIGHT frontal bone. 3. Mild atrophy and moderate small vessel ischemic changes are stable. Laboratory Results WBC 12.51 10^3/uL (3.29-11.43) H 01/18/24 09:05 RBC 4.84 10^6/uL (3.85-5.65) 01/18/24 09:05 Hgb 14.40 g/dL (11.27-16.99) 01/18/24 09:05 Hct 42.6 % (36-47) 01/18/24 09:05 MCV 88.0 fl (85-98) 01/18/24 09:05 MCH 29.8 pg (27-33) 01/18/24 09:05 MCHC 33.8 g/dL (30-55) 01/18/24 09:05 RDW 13.2 % (12.1-15.1) 01/18/24 09:05 Plt Count 321 10^3/cmm (157-399) 01/18/24 09:05 MPV 8.9 fL (7.4-10.4) 01/18/24 09:05 Neut % (Auto) 74.3 % 01/18/24 09:05 Lymph % (Auto) 15.5 % 01/18/24 09:05 [place] % (Auto) 8.3 % 01/18/24 09:05 Eos % (Auto) 0.8 % 01/18/24 09:05 Baso % (Auto) 0.6 % 01/18/24 09:05 Neut # (Auto) 9.30 10^3/uL (1.8-7.7) H 01/18/24 09:05 Lymph # (Auto) 1.9 10^3/uL (0.8-4.8) 01/18/24 09:05 [place] # (Auto) 1.0 10^3/uL (0.2-0.9) H 01/18/24 09:05 Eos # (Auto) 0.1 10^3/uL (0.0-0.8) 01/18/24 09:05 Baso # (Auto) 0.1 10^3/uL (0.0-0.1) 01/18/24 09:05 Nucleated RBC % (auto) 0 % 01/18/24 09:05 Nucleated RBCs # 0.0 /100WBC 01/18/24 09:05 Sodium 139 mmol/L (136-145) 01/18/24 09:05 Potassium 3.2 mmol/L (3.5-5.1) L 01/18/24 09:05 Chloride 96 mmol/L (98-107) L 01/18/24 09:05 Carbon Dioxide 27 mmol/L (22-29) 01/18/24 09:05 Anion Gap 19.2 (5-19) H 01/18/24 09:05 BUN 14 mg/dL (8-23) 01/18/24 09:05 Creatinine 0.8 mg/dL (0.5-0.9) 01/18/24 09:05 GFR Calculation 71.1 mL/min (90-130) L 01/18/24 09:05 Glucose 121 mg/dL (65-115) H 01/18/24 09:05 Calculated Osmolality 290 mOsm/kg (285-295) 01/18/24 09:05 Calcium 10.1 mg/dL (8.5-10.5) 01/18/24 09:05 Total Bilirubin 0.5 mg/dL (0.15-1.2) 01/18/24 09:05 AST 22 U/L (0-32) 01/18/24 09:05 ALT 12 U/L (0-33) 01/18/24 09:05 Alkaline Phosphatase 60 U/L (35-105) 01/18/24 09:05 Total Protein 8.7 g/dL (6.6-8.7) 01/18/24 09:05 Albumin 4.7 g/dL (3.5-5.2) 01/18/24 09:05 Globulin 4.0 g/dL (1.3-4.6) 01/18/24 09:05 TSH 0.71 uIU/mL (0.27-4.20) 01/18/24 09:05 Urine Color Yellow (Yellow) 01/18/24 09:10 Urine Appearance Clear (CLEAR) 01/18/24 09:10 Urine pH 5 (5-7) 01/18/24 09:10 Ur Specific [place] 1.010 (1.005-1.030) 01/18/24 09:10 Urine Protein Neg (Negative) 01/18/24 09:10 Urine Glucose (UA) Norm (Normal) 01/18/24 09:10 Urine Ketones 1+ (Negative) H 01/18/24 09:10 Urine Blood Neg (Negative) 01/18/24 09:10 Urine Nitrate Negative (Negative) 01/18/24 09:10 Urine Bilirubin 1+ (Negative) H 01/18/24 09:10 Urine Urobilinogen Neg mg/dL (Negative) 01/18/24 09:10 Ur Leukocyte Esterase Trace (Negative) H 01/18/24 09:10 Urine RBC 0-4 /hpf (0-2) H 01/18/24 09:10 Urine WBC 0-4 /hpf (0-5) H 01/18/24 09:10 Ur Squamous Epith Cells 5-10 /hpf (0-5) H 01/18/24 09:10 Ur Transition Epith Cell 0-4 /hpf 01/18/24 09:10 Amorphous Sediment Not Reportable 01/18/24 09:10 Urine Bacteria 1+ /hpf (NONE) H 01/18/24 09:10 Hyaline Casts 5-10 /lpf H 01/18/24 09:10 Urine Mucus 1+ /hpf 01/18/24 09:10 Salicylates < 0.3 mg/dL (3-10) L 01/18/24 09:05 Urine Opiates Screen Positive ng/mL (Negative) H 01/18/24 09:10 Acetaminophen < 5.0 ug/mL (10-30) L 01/18/24 09:05 Ur Barbiturates Screen Positive ng/mL (Negative) H 01/18/24 09:10 Ur Phencyclidine Scrn Negative ng/mL (Negative) 01/18/24 09:10 Ur Amphetamines Screen Negative ng/mL (Negative) 01/18/24 09:10 U Benzodiazepines Scrn Negative ng/mL (Negative) 01/18/24 09:10 Urine Cocaine Screen Negative ng/mL (Negative) 01/18/24 09:10 U Marijuana (THC) Screen Negative ng/mL (Negative) 01/18/24 09:10 Ethyl Alcohol < 10 mg/dL (0-10) 01/18/24 09:05 All radiology interpretation(s) finalized by discharge Discharge Plan Discharge Patient Disposition: Placed in Observation Clinical Impression: Delirium, Abnormal urinalysis, Depression Coding Level of Care Code ED Social Media Intern for Teresa Ewing
[2024-01-18 09:18] LABS: Basophils # 0.1 10^3/uL (0.0-0.1); Basophils % 0.6 %; Eosinophils # 0.1 10^3/uL (0.0-0.8); Eosinophils % 0.8 %; Hematocrit 42.6 % (36-47); Lymphocytes # 1.9 10^3/uL (0.8-4.8); Lymphocytes % 15.5 %; Mean Corpuscular HGB Conc 33.8 g/dL (30-55); Mean Corpuscular Hemoglobin 29.8 pg (27-33); Mean Platelet Volume 8.9 fL (7.4-10.4); Monocytes % 8.3 %; Neutrophils % 74.3 %; Nucleated Red Blood Cells % 0 %; Platelet Count 321 10^3/cmm (157-399); Red Blood Count 4.84 10^6/uL (3.85-5.65); Red Cell Distribution Width 13.2 % (12.1-15.1); White Blood Count 12.51 10^3/uL (3.29-11.43)
[2024-01-18] MEDS: lactated ringers 1,000 ML 999 ML IV (09:23)
--- NOTE | 2024-01-18 09:25 | PC.PHAR ---
PT HAS INDEPENDENT LIVING NURSE COME OUT EVERY 2 WEEKS AND SET UP MEDICATIONS. VERIFIED WITH FRIEND IN ROOM.
[2024-01-18 09:38] LABS: Amphetamines Screen Urine Negative (Negative); Barbiturates Screen Urine Positive (Negative); Benzodiazepines Screen Urine Negative (Negative); Cocaine Screen Urine Negative (Negative); Opiate Screen Urine Positive (Negative); PCP Screen Urine Negative (Negative); THC Screen Urine Negative (Negative)
[2024-01-18 09:38] LABS: Alanine Aminotransferase 12 U/L (0-33); Albumin Level 4.7 g/dL (3.5-5.2); Alkaline Phosphatase 60 U/L (35-105); Anion Gap 19.2 (5-19); Aspartate Amino Transferase 22 U/L (0-32); Blood Urea Nitrogen 14 mg/dL (8-23); Calcium 10.1 mg/dL (8.5-10.5); Carbon Dioxide 27 mmol/L (22-29); Chloride 96 mmol/L (98-107); Creatinine Clr Calc Pharmacy 62.8616; Glomerular Filtration Rate 71.1 mL/min (90-130); Glucose 121 mg/dL (65-115); Osmolality Calculated 290 mOsm/kg (285-295); Potassium 3.2 mmol/L (3.5-5.1); Sodium 139 mmol/L (136-145); Thyroid Stimulating Hormone 0.71 uIU/mL (0.27-4.20); Total Bilirubin 0.5 mg/dL (0.15-1.2); Total Protein 8.7 g/dL (6.6-8.7)
[2024-01-18 09:42] LABS: Acetaminophen < 5.0 ug/mL (10-30); Alcohol Level < 10 mg/dL (0-10); Salicylate < 0.3 mg/dL (3-10)
[2024-01-18 09:54] LABS: Bilirubin Urine 1+ (Negative); Blood Urine Neg (Negative); Glucose Urine UA Norm (Normal); Ketones Urine 1+ (Negative); Leukocyte Esterase Urine Trace (Negative); Nitrate Urine Negative (Negative); Protein Urine Neg (Negative); Urine Appearance Clear (CLEAR); Urine Color Yellow (Yellow); Urobilinogen Urine Neg (Negative); pH Urine 5 (5-7)
[2024-01-18 09:55] LABS: Add Urine Microscopic? YES; RBC Urine 0-4 /hpf (0-2); WBC Urine 0-4 /hpf (0-5)
[2024-01-18 09:56] LABS: Add Urine Culture? No; Bacteria Urine 1+ /hpf; Mucus Urine 1+ /hpf; Transitional Epi Cells Urine 0-4 /hpf
[2024-01-18] MEDS: cefTRIAXone 2,000 MG in sodium chloride 0.9% (plus) 50 ML 100 MG IV (11:03)
--- NOTE | 2024-01-18 11:36 | PM.HP ---
Providers/Chief Complaint Admitting Physician: Allan Meza MD, hospitalist Primary Care Provider: Darryl Coronado MD Chief Complaint: HALLUCINATIONS History of Present Illness Ruthie Fontenot is a 68 year old female brought into the emergency department by EMS. Apparently she was found this morning in her yard, acting confused, reporting that her friend left her. She reported a headache. She denied a fall. She cannot really relate the events of this morning to me. She has had a recent subdural hematoma, diagnosed on an ER visit January 04. She was sent to [place] following this. Apparently she was released fairly soon afterwards. She had 2 follow-ups, on January 09 with her primary care provider in January 13 with neurology. At those visits there was concern her medicine may be increasing her risk of fall, particularly her narcotic. She relates she was given a tapering schedule by neurology but has not yet done this. She states she takes more than prescribed for pain medicine secondary to her pain, but could not relate exactly how much. From her friend who was present with her during our visit, she has concern about her medication and how she takes this as well. She has not had any seizures, or seizure activity in the past. There was question of MS in the past but it is not known if it is active. I discussed with the patient that my biggest concern of her confusion would be her misuse of medication, and that I would be reducing this significantly. She is willing to do this currently. She denies any hallucinations to me, although I see that this is noted as a complaint on the ER chief complaint. She denies any recent fever, cough, urinary symptoms. There was concern of possible UTI in the emergency department and a dose of Rocephin was given along with some IV fluids. Patient denies intentional overdose, suicidal or homicidal ideation. Review of Systems General: Reports: 10 or more systems reviewed and unremarkable except in HPI and below Card: Denies: chest pain Resp: Denies: dyspnea GI: Denies: abdominal pain, nausea or vomiting Neuro: Reports: headache(s) and frequent falls Medications/Allergies Home Medications Medication Instructions Recorded Confirmed Last Taken Type acetaminophen 325 mg tablet 325 mg PO QID PRN Pain 11/11/20 01/18/24 02/26/22 History (Tylenol) 2L Oxygen via nc #1 ea 06/25/22 01/18/24 Unknown Rx propranolol 10 mg tablet 10 mg PO BID #180 tabs 04/06/23 01/18/24 01/17/24 Rx pantoprazole 40 mg tablet,delayed 40 mg PO DAILY #90 tabs 06/07/23 01/18/24 01/17/24 Rx release duloxetine 60 mg capsule,delayed 120 mg (2 x 60 mg) PO DAILY #180 09/30/23 01/18/24 01/17/24 Rx release caps hydroxyzine HCl 50 mg tablet 50 mg PO QID PRN insomnia/anxiety 09/30/23 01/18/24 Unknown Rx #120 tabs promethazine 25 mg tablet 25 mg PO Q6H PRN nausea and 10/11/23 01/18/24 Unknown Rx vomiting #60 tabs atorvastatin 20 mg tablet 20 mg PO BEDTIME@1999 #30 tabs 10/28/23 01/18/24 01/17/24 Rx solifenacin 10 mg tablet (Vesicare) 10 mg PO DAILY #30 tabs 11/29/23 01/18/24 01/17/24 Rx alendronate 70 mg tablet See Rx Instructions .Route 12/05/23 01/18/24 Unknown Rx .COMPLEX #12 tabs acyclovir 400 mg tablet 400 mg PO BID 01/05/24 01/18/24 01/17/24 History amlodipine 5 mg tablet 5 mg PO DAILY 01/05/24 01/18/24 01/17/24 History budesonide-formoterol HFA 80 2 puff inhalation BID 01/05/24 01/18/24 01/17/24 History mcg-4.5 mcg/actuation aerosol inhaler (Symbicort) cholecalciferol (vitamin D3) 50 50 mcg PO DAILY 01/05/24 01/18/24 01/17/24 History mcg (2,000 unit) tablet (Vitamin D3) dalfampridine 10 mg 10 mg PO Q12H 01/05/24 01/18/24 01/17/24 History tablet,extended release,12 hr hydrochlorothiazide 12.5 mg capsule 12.5 mg PO DAILY 01/05/24 01/18/24 01/17/24 History losartan 100 mg tablet 100 mg PO DAILY 01/05/24 01/18/24 01/17/24 History primidone 50 mg tablet 100 mg PO DAILY 01/05/24 01/18/2401/16/24 History oxycodone 20 mg tablet 10 mg PO BID 01/18/24 01/18/24 01/17/24 History trazodone 100 mg tablet 200 - 300 mg PO BEDTIME PRN sleep 01/18/24 01/18/24 Unknown History Allergies Allergy/AdvReac Type Severity Reaction Status Date / Time Penicillins Allergy HIVES Verified 01/14/24 14:00 latex AdvReac rash Verified 01/14/24 14:00 quetiapine [From Seroquel] AdvReac ADR-Hallucinating Verified 01/14/24 14:00 / DIZZINESS PFSH Acute PFSH: Medical History Nausea and vomiting in adult Polysubstance use disorder History of polysubstance use disorder, including benzodiazepines Psychiatric care GERD (gastroesophageal reflux disease) Gastritis Myalgia Hypercholesteremia Diagnosed in 2009 and is controlled with medication managed by PMD Diabetes mellitus Diagnosed in 2014 and she is currently on metformin. She states that her last hemoglobin A1c was high Chronic hypertension Diagnosed in 2009 and controlled on medication managed by primary care provider No pertinent past medical history Denies: Asthma seizures, DVT/PE PCP: Dr. Coronado Borderline personality disorder Major depressive disorder, recurrent severe without psychotic features 2014 currently on medication and follows up with [facility] Long-term current use of opiate analgesic Cervical facet syndrome Chronic radicular low back pain Has had surgery for chronic lower back pain. Surgical History History of colonoscopy History of esophagogastroduodenoscopy (EGD) S/P placement of nerve stimulator S/P removal by Dr Krishnamurthy in 2021. Hx of cholecystectomy 2012-laparoscopic procedure by Dr. Barahona at [facility] [place] Hx of cervical spine surgery (~03/24/18) Dr Watts 03/24/18 Comments: Cervical laminectomy for placement of intraspinal, epidural paddle electrode arrays and placement of subcutaneous pulse generator. Hx of hysterectomy Had a total abdominal hysterectomy via Pfannenstiel incision for pelvic inflammatory disease per patient. She states that both tubes, uterus and the left ovary were removed. She only has her right ovary remaining at this time. Family History Mother Diabetes Heart disease Hyperlipidemia Brother Hypertension x 2 Sister Breast cancer Diagnose at age 35 Brother Lung cancer Denies family history of Colon cancer Ovarian cancer Anesthesia complication Bleeding disorder Uterine cancer Thyroid disease Stroke Social History Smoking and tobacco/nicotine status: current every day tobacco/nicotine user cigarettes Packs smoked per day: 0.15 Years cigarettes smoked: 49 Quit status (tobacco/nicotine): has tried quititng Number of times tried to quit tobacco: 10 Second hand smoke exposure: No Alcohol intake: former Substance/Drug Use: former Lives independently: Yes Household members: none Current occupational status: disabled Vitals/I&O/Wt Last Vital Signs Temp 97.7 F 01/18/24 08:02 Pulse 82 01/18/24 09:31 Resp 18 01/18/24 09:31 BP 140/76 01/18/24 08:12 Pulse Ox 95 01/18/24 09:31 O2 Del Method Room Air 01/18/24 09:31 01/17/24 01/18/24 01/18/24 22:59 06:59 14:59 Intake Total 1050 / 1050 Balance 1050 / 1050 Weight last 48 hrs Weight 74.843 kg Physical Exam Const: OTHER: General exam is white female, alert to self, friend at bedside, year, month. She does not know the day of the week or actual date. Her friend reports she is not yet back to baseline. HEENT: Large hematoma right forehead. Subconjunctival hemorrhage on the right. Oropharynx clear. Neck is supple no lymphadenopathy thyromegaly Cardiovascular regular rate and rhythm without murmur Lungs clear Abdomen is soft, positive bowel sounds. No obvious tenderness. No obvious organomegaly. exam is deferred Extremities no cyanosis, or edema, cap refill brisk Skin no rash Neuro no obvious focal deficits. Data 01/18/24 09:05 01/18/24 09:05 Other Labs: LFTs are normal Calcium, albumin normal TSH 0.71 Urinalysis 0-4 whites, 5-10 squamous, 1+ bacteria, negative nitrates. Urine drug screen positive for opiates and barbiturates. Acetaminophen level, salicylate level, alcohol level not really detectable. I have ordered an EKG, magnesium level, repeat urinalysis. B12 level. Chest x-ray which I reviewed demonstrates no infiltrate. Previous cervical surgeries noted. CT scan which I reviewed demonstrates an improving left subdural hematoma and a scalp hematoma right frontal bone A&P Assessment and plan (1) Acute encephalopathy: Patient presents with acute encephalopathy. Friend reports she is not yet back to baseline, but certainly better than the description that was obtained from ER records. Considering use of pain medication, benzodiazepines, antihistamines polypharmacy is likely the cause With her history of subdural and recent fall continuing all of these medications is a threat to her life. Closely observe in hospital until encephalopathy resolves, therefore observation currently. I discussed my concerns with the patient and her friend that medication would have to be significantly reduced. Her use of hydroxyzine, promethazine, [id number] Benadryl, oxycodone, trazodone, Cymbalta, hydrochlorothiazide could all increase risk of encephalopathy and falls. At this point I am discontinuing all antihistamines consisting of Benadryl, hydroxyzine, promethazine. I will discontinue her hydrochlorothiazide. I will stop her trazodone but continue her Cymbalta at current dosing. I will continue her primidone. I believe she has been using the oxycodone and large doses in the morning, and likely forgetting that she takes it and continuing to use throughout the day. At this point I will put her on oxycodone 5 mg 3 times daily to try to prevent any withdrawal. If withdrawal symptoms occur this may need to be increased. She will certainly need a tapering schedule when she leaves. Discharge planning will be cortes in seeing if she has any services that need to be increased or started, or residential care. As she has had a history of falls and poor gait for some time attributed to her MS will go ahead and check a B12 level. She already has a TSH that was checked and normal. (2) Hypokalemia: Supplement potassium Check magnesium (3) Polysubstance use disorder: See above under acute encephalopathy (4) Subdural hematoma: This appears to be resolving. Anticoagulation currently still contraindicated secondary to high risk of falling. (5) Fall: See notations under acute encephalopathy Fall precautions in the hospital (6) COPD (chronic obstructive pulmonary disease): No evidence of acute exacerbation currently. DuoNeb as needed. Budesonide twice daily. (7) Prediabetes: Consistent carb diet. Note that her blood sugar on arrival here was only slightly elevated. Plan Previously described depression/borderline personality disorder. Continue her Cymbalta currently. Attestations Medical Necessity Statement*: Will need less than 2 midnight stay for evaluation and treatment of acute encephalopathy likely related to polypharmacy Diagnoses Acute encephalopathy G93.40 Hypokalemia E87.6 Polysubstance use disorder F19.90 Subdural hematoma S06.5XAA Fall W19.XXXA COPD (chronic obstructive pulmonary disease) J44.9 Prediabetes R73.03 Time Spent (min) 54
[2024-01-18] MEDS: potassium chloride ER 20 mEq Tablet 40 MEQ PO (12:03)
--- NOTE | 2024-01-18 12:13 | ECG_ITS ---
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 Measurements Intervals [place] Rate: 67 P: -58 MS: 131 QRS: 61 QRSD: 89 T: 58 QT: 426 QTc: 452 Interpretive Statements ECTOPIC ATRIAL RHYTHM ABNORMAL RHYTHM ECG Compared to ECG 02/24/2022 10:43:57 Ectopic atrial rhythm now present Sinus rhythm no longer present Electronically Signed On 01-19-2024 0:31:52 CDT by Shahana Kelley M.D. [id number]
[2024-01-18 12:24] LABS: Vitamin B12 313 pg/mL (232-1245)
[2024-01-18 12:28] LABS: Add Urine Culture? No; Bacteria Urine TRACE /hpf; Bilirubin Urine Neg (Negative); Blood Urine Neg (Negative); Glucose Urine UA Norm (Normal); Hyaline Casts Urine 0-4 /lpf; Ketones Urine 1+ (Negative); Leukocyte Esterase Urine Trace (Negative); Mucus Urine TRACE /hpf; Nitrate Urine Negative (Negative); Protein Urine Neg (Negative); RBC Urine 0-4 /hpf (0-2); Squamous Epithelial Cell Urine 0-4 /hpf (0-5); Urine Appearance SL Hazy (CLEAR); Urine Color Yellow (Yellow); Urobilinogen Urine Neg (Negative); WBC Urine 0-4 /hpf (0-5); pH Urine 5 (5-7)
[2024-01-18] MEDS: oxyCODONE 5 mg IR Tab/Cap PO ×2 (14:00→19:54)
[2024-01-18] MEDS: propranolol 20 mg Tablet 10 MG PO (17:30)
[2024-01-18] MEDS: acetaminophen 325 mg Tablet 650 MG PO (17:30)
[2024-01-18] MEDS: docusate sodium 100 mg Capsule PO (17:30)
[2024-01-18] MEDS: atorvastatin 40 mg Tablet PO (19:54)
[2024-01-18] MEDS: budesonide 0.5 mg/2 mL Neb INHALATION (20:25)
[2024-01-19] VITALS (8 sets, daily range): BP systolic 118–161; BP diastolic 69–80; PULSE 67–82; RESP 16–20; TEMP 36.3–36.6; O2SAT 90–96
[2024-01-19] MEDS: acetaminophen 325 mg Tablet 650 MG PO (01:09)
[2024-01-19 05:30] LABS: Basophils # 0.1 10^3/uL (0.0-0.1); Basophils % 0.7 %; Eosinophils # 0.2 10^3/uL (0.0-0.8); Eosinophils % 2.5 %; Lymphocytes % 26.9 %; Mean Corpuscular HGB Conc 33.8 g/dL (30-55); Mean Corpuscular Hemoglobin 30.3 pg (27-33); Mean Corpuscular Volume 89.8 fl (85-98); Mean Platelet Volume 8.8 fL (7.4-10.4); Monocytes # 0.6 10^3/uL (0.2-0.9); Monocytes % 8.5 %; Neutrophils # 4.46 10^3/uL (1.8-7.7); Neutrophils % 61.1 %; Nucleated Red Blood Cells % 0 %; Platelet Count 274 10^3/cmm (157-399); Red Blood Count 4.12 10^6/uL (3.85-5.65); Red Cell Distribution Width 13.3 % (12.1-15.1); White Blood Count 7.29 10^3/uL (3.29-11.43)
[2024-01-19 05:50] LABS: Alanine Aminotransferase 10 U/L (0-33); Albumin Level 4.1 g/dL (3.5-5.2); Alkaline Phosphatase 50 U/L (35-105); Anion Gap 14.5 (5-19); Aspartate Amino Transferase 20 U/L (0-32); Blood Urea Nitrogen 10 mg/dL (8-23); Calcium 9.2 mg/dL (8.5-10.5); Carbon Dioxide 29 mmol/L (22-29); Chloride 101 mmol/L (98-107); Creatinine Clr Calc Pharmacy 62.2913; Glomerular Filtration Rate 99.1 mL/min (90-130); Glucose 113 mg/dL (65-115); Osmolality Calculated 292 mOsm/kg (285-295); Potassium 3.5 mmol/L (3.5-5.1); Sodium 141 mmol/L (136-145); Total Bilirubin 0.4 mg/dL (0.15-1.2); Total Protein 7.1 g/dL (6.6-8.7)
[2024-01-19] MEDS: budesonide 0.5 mg/2 mL Neb INHALATION (08:25)
[2024-01-19] MEDS: ipratropium-albuterol 3 mL Neb INHALATION (08:26)
[2024-01-19] MEDS: docusate sodium 100 mg Capsule PO (09:00)
[2024-01-19] MEDS: propranolol 20 mg Tablet 10 MG PO (09:00)
[2024-01-19] MEDS: losartan 50 mg Tablet 100 MG PO (09:00)
[2024-01-19] MEDS: pantoprazole DR 40 mg Tablet PO (09:00)
[2024-01-19] MEDS: amlodipine 5 mg Tablet PO (09:00)
[2024-01-19] MEDS: oxyCODONE 5 mg IR Tab/Cap PO (09:00)
[2024-01-19] MEDS: acyclovir 400 mg Tablet PO (09:00)
[2024-01-19] MEDS: primidone 50 mg Tablet 100 MG PO (09:01)
[2024-01-19] MEDS: duloxetine 60 mg Capsule 120 MG PO (09:01)
--- NOTE | 2024-01-19 11:19 | P.DS_ITS ---
Discharge Providers Date of Admission: 01/18/24 12:45 Date of Discharge: January 19, 2024 Attending Provider at Admission: Allan Meza MD Attending Provider at Discharge: Allan Meza MD Primary Care Provider: Darryl Coronado MD Diagnoses at Discharge Discharge Diagnosis (1) Acute encephalopathy: Status: Acute (2) Hypokalemia: Status: Acute (3) Polysubstance use disorder: Status: Chronic Permanent problem details: History of polysubstance use disorder, including benzodiazepines (4) Subdural hematoma: Status: Acute (5) Fall: Status: Acute (6) COPD (chronic obstructive pulmonary disease): Status: Acute (7) Prediabetes: Status: Acute Reason for Visit Reason for Visit: HALLUCINATIONS Hospital Course Hospital Course Ruthie is a 68-year-old white female with recent history of subdural hematoma who presented to the emergency department by EMS for acute encephalopathy. It was suspected medications were playing a part, as she had significant polypharmacy. She admitted to taking more oxycodone than prescribed recently. In the emergency department she was still confused , so she was placed on observation in the hospital and her medications were markedly reduced. Oxycodone was continued at 5 mg 3 times daily to prevent withdrawal. The following morning she was back to her baseline mental status and it was thought she could be discharged home. Multiple medications were reduced, and I discussed this with her primary care provider. She will also have a tapered oxycodone dose of 5 mg 3 times daily for 2 days, twice daily for 2 days, once daily for 2 days and then discontinue. She and her friend were given the opportunity ask questions and agreed with the plan. Head CT was performed during her admission demonstrating resolving subdural. I discussed with her in detail that her use of multiple medications could lead to repetitive falls, and/or and/or disability. She acknowledged this and was able to understand its implications and repeat my concerns. Physical Exam Narrative: General exam no distress Cardiovascular regular rate and rhythm without murmur Lungs clear Abdomen soft Extremities no sinus clubbing or edema Neuro no obvious focal deficits. Discharge Data Studies Completed and Pending Completed Studies During Hospitalization Category Date Time Status CT head wo con* [id number] Stat Cat Scan 01/18/24 08:08 Completed XR chest 1V portable [id number] Stat Exams 01/18/24 08:08 Completed Radiology Impressions Chest X-Ray 01/18/24 08:08 IMPRESSION: No acute findings. Head CT 01/18/24 08:08 IMPRESSION: 1. Interval resolution of the small recently described LEFT subdural hematoma. No new acute blood products. 2. Persistent but improving large scalp hematoma centered over the RIGHT frontal bone. 3. Mild atrophy and moderate small vessel ischemic changes are stable. Laboratory Results WBC 7.29 10^3/uL (3.29-11.43) 01/19/24 05:08 RBC 4.12 10^6/uL (3.85-5.65) 01/19/24 05:08 Hgb 12.50 g/dL (11.27-16.99) 01/19/24 05:08 Hct 37.0 % (36-47) 01/19/24 05:08 MCV 89.8 fl (85-98) 01/19/24 05:08 MCH 30.3 pg (27-33) 01/19/24 05:08 MCHC 33.8 g/dL (30-55) 01/19/24 05:08 RDW 13.3 % (12.1-15.1) 01/19/24 05:08 Plt Count 274 10^3/cmm (157-399) 01/19/24 05:08 MPV 8.8 fL (7.4-10.4) 01/19/24 05:08 Neut % (Auto) 61.1 % 01/19/24 05:08 Lymph % (Auto) 26.9 % 01/19/24 05:08 Swain % (Auto) 8.5 % 01/19/24 05:08 Eos % (Auto) 2.5 % 01/19/24 05:08 Baso % (Auto) 0.7 % 01/19/24 05:08 Neut # (Auto) 4.46 10^3/uL (1.8-7.7) 01/19/24 05:08 Lymph # (Auto) 2.0 10^3/uL (0.8-4.8) 01/19/24 05:08 Swain # (Auto) 0.6 10^3/uL (0.2-0.9) 01/19/24 05:08 Eos # (Auto) 0.2 10^3/uL (0.0-0.8) 01/19/24 05:08 Baso # (Auto) 0.1 10^3/uL (0.0-0.1) 01/19/24 05:08 Nucleated RBC % (auto) 0 % 01/19/24 05:08 Nucleated RBCs # 0.0 /100WBC 01/19/24 05:08 Sodium 141 mmol/L (136-145) 01/19/24 05:08 Potassium 3.5 mmol/L (3.5-5.1) 01/19/24 05:08 Chloride 101 mmol/L (98-107) 01/19/24 05:08 Carbon Dioxide 29 mmol/L (22-29) 01/19/24 05:08 Anion Gap 14.5 (5-19) 01/19/24 05:08 BUN 10 mg/dL (8-23) 01/19/24 05:08 Creatinine 0.6 mg/dL (0.5-0.9) 01/19/24 05:08 GFR Calculation 99.1 mL/min (90-130) 01/19/24 05:08 Glucose 113 mg/dL (65-115) 01/19/24 05:08 Calculated Osmolality 292 mOsm/kg (285-295) 01/19/24 05:08 Calcium 9.2 mg/dL (8.5-10.5) 01/19/24 05:08 Magnesium 2.0 mg/dL (1.7-2.3) 01/18/24 09:05 Total Bilirubin 0.4 mg/dL (0.15-1.2) 01/19/24 05:08 AST 20 U/L (0-32) 01/19/24 05:08 ALT 10 U/L (0-33) 01/19/24 05:08 Alkaline Phosphatase 50 U/L (35-105) 01/19/24 05:08 Total Protein 7.1 g/dL (6.6-8.7) 01/19/24 05:08 Albumin 4.1 g/dL (3.5-5.2) 01/19/24 05:08 Globulin 3.0 g/dL (1.3-4.6) 01/19/24 05:08 Vitamin B12 313 pg/mL (232-1245) 01/18/24 09:05 TSH 0.71 uIU/mL (0.27-4.20) 01/18/24 09:05 Urine Color Yellow (Yellow) 01/18/24 12:10 Urine Appearance Sl hazy (CLEAR) A 01/18/24 12:10 Urine pH 5 (5-7) 01/18/24 12:10 Ur Specific [place] 1.010 (1.005-1.030) 01/18/24 12:10 Urine Protein Neg (Negative) 01/18/24 12:10 Urine Glucose (UA) Norm (Normal) 01/18/24 12:10 Urine Ketones 1+ (Negative) H 01/18/24 12:10 Urine Blood Neg (Negative) 01/18/24 12:10 Urine Nitrate Negative (Negative) 01/18/24 12:10 Urine Bilirubin Neg (Negative) 01/18/24 12:10 Prot Sulfosalicylic Acd Cancelled 01/18/24 09:10 Urine Urobilinogen Neg mg/dL (Negative) 01/18/24 12:10 Ur Leukocyte Esterase Trace (Negative) H 01/18/24 12:10 Urine RBC 0-4 /hpf (0-2) H 01/18/24 12:10 Urine WBC 0-4 /hpf (0-5) H 01/18/24 12:10 Ur Squamous Epith Cells 0-4 /hpf (0-5) H 01/18/24 12:10 Ur Transition Epith Cell 0-4 /hpf 01/18/24 09:10 Ur Transition Epith Cell Cancelled 01/18/24 09:10 Ur Renal Epithelial Cell Cancelled 01/18/24 09:10 Calcium Oxalate Crystal Cancelled 01/18/24 09:10 Uric Acid Crystals Cancelled 01/18/24 09:10 Triple Phos Crystals Cancelled 01/18/24 09:10 Other Crystals Cancelled 01/18/24 09:10 Amorphous Sediment Not Reportable 01/18/24 12:10 Urine Bacteria Trace /hpf (NONE) 01/18/24 12:10 Hyaline Casts 0-4 /lpf H 01/18/24 12:10 Fine Granular Casts Cancelled 01/18/24 09:10 Coarse Granular Casts Cancelled 01/18/24 09:10 RBC Casts Cancelled 01/18/24 09:10 Other Casts Cancelled 01/18/24 09:10 Urine Mucus Trace /hpf 01/18/24 12:10 Urine Trichomonas Cancelled 01/18/24 09:10 Urine Yeast Cancelled 01/18/24 09:10 Urine Sperm Cancelled 01/18/24 09:10 Ur Oval Fat Bodies Cancelled 01/18/24 09:10 Salicylates < 0.3 mg/dL (3-10) L 01/18/24 09:05 Urine Opiates Screen Positive ng/mL (Negative) H 01/18/24 09:10 Acetaminophen < 5.0 ug/mL (10-30) L 01/18/24 09:05 Ur Barbiturates Screen Positive ng/mL (Negative) H 01/18/24 09:10 Ur Phencyclidine Scrn Negative ng/mL (Negative) 01/18/24 09:10 Ur Amphetamines Screen Negative ng/mL (Negative) 01/18/24 09:10 U Benzodiazepines Scrn Negative ng/mL (Negative) 01/18/24 09:10 Urine Cocaine Screen Negative ng/mL (Negative) 01/18/24 09:10 U Marijuana (THC) Screen Negative ng/mL (Negative) 01/18/24 09:10 Ethyl Alcohol < 10 mg/dL (0-10) 01/18/24 09:05 Vitals Last Vital Signs Temp 97.9 F 01/19/24 07:17 Pulse 82 01/19/24 08:00 Resp 18 01/19/24 08:00 BP 161/69 01/19/24 09:00 Pulse Ox 96 01/19/24 08:00 O2 Del Method Room Air 01/19/24 08:00 Discharge Plan Discharge Patient Disposition: Home Health Service Condition: Stable Prescriptions: New oxycodone 5 mg tablet 5 mg PO TID Qty: 12 0RF Rx Instructions: Taper as in discharge instructions trazodone 50 mg tablet 50 mg PO BEDTIME Qty: 30 0RF Continued duloxetine 60 mg capsule,delayed release(DR/EC) 120 mg PO DAILY Qty: 180 0RF (DME) 2L Oxygen via nc See Rx Instructions .Route .MEDSUPPLY Qty: 1 0RF Rx Instructions: As directed propranolol 10 mg tablet 10 mg PO BID Qty: 180 3RF pantoprazole 40 mg tablet,delayed release (DR/EC) 40 mg PO DAILY Qty: 90 3RF atorvastatin 20 mg tablet 20 mg PO BEDTIME@2000 Qty: 30 10RF solifenacin [Vesicare] 10 mg tablet 10 mg PO DAILY Qty: 30 6RF alendronate 70 mg tablet See Rx Instructions .ROUTE .COMPLEX Qty: 12 2RF Dose Instruction: TAKE 1 TABLET BY MOUTH EVERY WEEK WHILE SITTING. DO NOT LIE DOWN WITHIN 30 MINUTES OF TAKING MEDICATION Rx Instructions: TAKE 1 TABLET BY MOUTH EVERY WEEK WHILE SITTING. DO NOT LIE DOWN WITHIN 30 MINUTES OF TAKING MEDICATION acetaminophen [Tylenol] 325 mg Tablet 325 mg PO QID PRN (Reason: Pain) acyclovir 400 mg tablet 400 mg PO BID primidone 50 mg tablet 100 mg PO DAILY amlodipine 5 mg tablet 5 mg PO DAILY losartan 100 mg tablet 100 mg PO DAILY budesonide-formoterol [Symbicort] 80-4.5 mcg/actuation HFA aerosol inhaler 2 puff inhalation BID cholecalciferol (vitamin D3) [Vitamin D3] 50 mcg (2,000 unit) tablet 50 mcg PO DAILY dalfampridine 10 mg tablet extended release 12 hr 10 mg PO Q12H Discontinued hydroxyzine HCl 50 mg tablet 50 mg PO QID PRN (Reason: insomnia/anxiety) Qty: 120 2RF promethazine 25 mg tablet 25 mg PO Q6H PRN (Reason: nausea and vomiting) Qty: 60 2RF hydrochlorothiazide 12.5 mg capsule 12.5 mg PO DAILY oxycodone 20 mg tablet 10 mg PO BID trazodone 100 mg tablet 200 - 300 mg PO BEDTIME PRN (Reason: sleep) Discharge Orders: Discharge Order (Routine); Ordered 01/19/24 Ordered By: Allan Meza Referrals: [facility] [Other] Darryl Coronado MD [Primary Care Provider] - 01/26/24 1:30 pm () Discharge Diet: Diabetic Discharge Activity: Increase activity as tolerated Patient Instructions: Oxycodone, Slow Release (By mouth), COPD (Chronic Obs tructive Pulmonary Disease) (DC), Altered Mental Status (ED), Opioid Safety Activity Restrictions/Additional Instructions: Take all medicine as prescribed Note all of your medicine reductions. Do not take any Benadryl [id number] May take Tylenol as needed for pain, with the prescribed dose [id number]. Oxycodone should be 5 mg 3 times daily for 2 days, then 5 mg 2 times a day for 2 days, then 5 mg once a day for 2 days and then discontinue. Discharge Attestations Time Spent in Discharge Care*: greater than 30 min Quality Metrics Clinical Quality Measures [ No reported AMI, CVA or VTE this stay] Coding Level of Care Code 21742 Total time (in minutes) for Discharge: 36 Diagnoses Acute encephalopathy G93.40 Hypokalemia E87.6 Polysubstance use disorder F19.90 Subdural hematoma S06.5XAA Fall W19.XXXA COPD (chronic obstructive pulmonary disease) J44.9 Prediabetes R73.03
[2024-01-19] MEDS: ondansetron 2 mg/ML SDV 2 mL 4 MG IVP (11:47)
== END 2024-01-19 15:12 | disposition home health service (06) ==
LOC: ER 11:05 → MEDSURG 12:46
PROVIDERS: Admitting Provider Internal Medicine; Emergency Provider Emergency Medicine; PCP Family Medicine; Visit Provider Internal Medicine
DX: G93.40 Encephalopathy, unspecified (principal); E87.6 Hypokalemia; F19.90 Other psychoactive substance use, unspecified, uncomplicated; S06.5XAA Traumatic subdural hemorrhage with loss of consciousness status unknown, initial encounter; W19.XXXA Unspecified fall, initial encounter; J44.9 Chronic obstructive pulmonary disease, unspecified; E11.9 Type 2 diabetes mellitus without complications; K21.9 Gastro-esophageal reflux disease without esophagitis; I10 Essential (primary) hypertension; F17.210 Nicotine dependence, cigarettes, uncomplicated
CPT/HCPCS: 36415; 70450; 71045; 80053; 80306; 80307; 81001; 82607; 83735; 84443; 85025; 93005; 94640; 96365; 96372; 96375; 97161; 99285; G0378; J0696; J2405; J3411; J7120; J7626; J8499

== ENCOUNTER 2024-02-07 14:49 | Outpatient (CLI) | payer MEDICARE, MEDICAID, SELFPAY ==
--- NOTE | 2024-02-07 15:30 | CT_ITS ---
WS: [id number] CTA HEAD TECHNIQUE: Contrast enhanced CTA of the head with coronal and sagittal reformatted images and maximum intensity projection (MIP) images. NASCET criteria utilized. CLINICAL INFORMATION: G37.9 - Demyelinating disease of central nervous system, ... COMPARISON: CT 01/18/2024 DLP: 2956.[address] scans at [facility] use at least one of these dose optimization techniques: automated e xposure control; mA and/or kV adjustment per patient size (includes targeted exams where dose is matc hed to clinical indication); or iterative reconstruction. FINDINGS: INTRACRANIAL CTA: Distal vertebral arteries are patent. Dominant distal LEFT vertebral artery. Basilar artery is patent . Persistent LEFT SENIOR [employer] SPECIALIST. Normal vascularity to the SENIOR [employer]S SPECIALIST territory bilaterally. Both ICAs are patent at the skull base. Mild cavernous carotid calcification. Normal vascularity to t he SUSI and MCA territories bilaterally. No evidence of proximal flow-limiting stenosis or aneurysm. A zygos SUSI. Mastoid air cells well aerated. Air-fluid level in the RIGHT maxillary sinus. Mild mucosal thickening of the paranasal sinuses. Normal posterior nasopharynx. CT/CT angio head [id number] IMPRESSION: Unremarkable intracranial CTA.
== END 2024-02-07 14:50 | disposition home or self-care (01) ==
LOC: RAD 14:50
PROVIDERS: PCP Family Medicine; Visit Provider Specialist
DX: G37.9 Demyelinating disease of central nervous system, unspecified (principal); M48.02 Spinal stenosis, cervical region; S06.5XAA Traumatic subdural hemorrhage with loss of consciousness status unknown, initial encounter; R41.3 Other amnesia; F33.2 Major depressive disorder, recurrent severe without psychotic features
CPT/HCPCS: 70496

== ENCOUNTER 2024-02-07 14:49 | Outpatient (CLI) | payer MEDICARE, MEDICAID, SELFPAY ==
[2024-02-07] MEDS: iohexol 350 mg/mL 500 mL Btl (per mL) IV (15:21)
--- NOTE | 2024-02-07 16:00 | CT_ITS ---
WS: [id number] CT HEAD TECHNIQUE: Noncontrast and contrast-enhanced CT of the head. CLINICAL INFORMATION: G37.9 - Demyelinating disease of central nervous system, ... COMPARISON: CT 01/18/2024 DLP: 2956.[address] scans at [facility] use at least one of these dose optimization techniques: automated e xposure control; mA and/or kV adjustment per patient size (includes targeted exams where dose is matc hed to clinical indication); or iterative reconstruction. FINDINGS: No new or residual blood products. Moderate small vessel changes. Moderate parenchymal volume loss. I ntracranial vascular calcification. No abnormal intracranial enhancement. No extra-axial fluid collec tions. No evidence of mass or mass effect. RIGHT maxillary sinusitis. Mucosal thickening LEFT frontal sinus and ethmoid air cells. Mild mucosal thickening RIGHT sphenoid s inus. Mastoid air cells well aerated. Normal posterior nasopharynx. CT/CT head wo/w con [id number] IMPRESSION: 1. No evidence of intracranial hemorrhage or mass effect. 2. Moderate small vessel changes with moderate parenchymal volume loss. 3. No abnormal intracranial enhancement. 4. RIGHT maxillary sinusitis.
== END 2024-02-07 14:50 | disposition home or self-care (01) ==
LOC: RAD 14:50
PROVIDERS: PCP Family Medicine; Visit Provider Specialist
DX: G37.9 Demyelinating disease of central nervous system, unspecified (principal); R41.3 Other amnesia; M48.02 Spinal stenosis, cervical region; F33.2 Major depressive disorder, recurrent severe without psychotic features
CPT/HCPCS: 70470; Q9967

== ENCOUNTER 2024-03-12 20:47 | Emergency (ER) | payer MEDICARE, MEDICAID, SELFPAY ==
[2024-03-12 20:50] VITALS: BP 133/81; PULSE 85; RESP 18; TEMP 36.7; O2SAT 92; BMI 29.9
[2024-03-12 21:05] VITALS: BP 133/81; PULSE 85; RESP 18; O2SAT 92
--- NOTE | 2024-03-12 21:36 | CTR_ITS ---
PROCEDURE INFORMATION: Exam: CT Head Without Contrast Exam date and time: 03/12/2024 9:44 PM Age: 69 years old Clinical indication: Altered mental status/memory loss; Patient HX: EMS arrival for hallucinations. History of subdural hematoma. ; Additional info: AMS. HX subdural TECHNIQUE: Imaging protocol: Computed tomography of the head without contrast. Radiation optimization: All CT scans at this facility use at least one of these dose optimization techniques: automated exposure control; mA and/or kV adjustment per patient size (includes targeted exams where dose is matched to clinical indication); or iterative reconstruction. COMPARISON: CT angio head [id number] 02/07/2024 3:08 PM RADIATION DOSE METRICS: Total DLP (mGy-cm): 1054.05 FINDINGS: Brain: No hemorrhage. Diffuse periventricular white matter disease. No mass effect. No collections. Age related volume loss. Cerebral ventricles: There is ventriculomegaly associated with age related volume loss. Paranasal sinuses: No significant air-fluid levels noted in the visualized sinuses. Mucous retention cyst in the right sphenoid sinus. Mastoid air cells: Mastoid air cells are aerated with no effusions. Bones: No acute osseous abnormality. Soft tissues: Unremarkable. CT/CT head wo con* [id number] IMPRESSION: No acute intracranial abnormality.
--- NOTE | 2024-03-12 21:36 | XRR_ITS ---
PROCEDURE INFORMATION: Exam: XR Chest Exam date and time: 03/12/2024 9:38 PM Age: 69 years old Clinical indication: Other: AMS; Patient HX: Hallucinations post fall; Bilateral rib pain TECHNIQUE: Imaging protocol: Radiologic exam of the chest. Views: 1 view. COMPARISON: CR XR chest 1V portable [id number] 01/18/2024 8:10 AM FINDINGS: Lungs: No focal consolidation or other acute appearing pulmonary opacity. Pleural spaces: No pleural effusion or pneumothorax noted. Heart/Mediastinum: There is cardiomegaly. Bones/joints: No acute osseous abnormality. Post lower cervical spine fusion. Intraperitoneal space: There is no free intraperitoneal gas. XR/XR chest 1V portable [id number] IMPRESSION: No acute findings.
--- NOTE | 2024-03-12 21:55 | ECG_ITS ---
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 Measurements Intervals [place] Rate: 71 P: 61 UT: 157 QRS: 70 QRSD: 90 T: 72 QT: 417 QTc: 456 Interpretive Statements SINUS RHYTHM Compared to ECG 01/18/2024 12:13:11 Ectopic atrial rhythm no longer present Electronically Signed On 03-13-2024 9:45:19 CDT by Jeff Holbrook M.D. [id number]
--- NOTE | 2024-03-12 22:07 | ED.C_ITS ---
HPI - Psych 2 General: Chief Complaint: Psychiatric Symptoms Stated Complaint: HALLUCINATIONS Time Seen by Provider: 03/12/24 20:59 History of Present Illness: 69-year-old female who had a subdural he matoma after a fall back in December. She was admitted after that, with altered mental status, and was found to have been overmedicated. She presents today after a fall at home. Following the fall, she evidently called police and told them that there were people in her house, man, but they would not talk to her. She believed it was Halloween. On my examination and interview, she does not remember the statements. Apparently, she took her first dose of Suboxone yesterday. She is asking for pain medication currently. PFS ED 2 PFSH: Medical History Nausea and vomiting in adult Polysubstance use disorder History of polysubstance use disorder, including benzodiazepines Psychiatric care GERD (gastroesophageal reflux disease) Gastritis Myalgia Hypercholesteremia Diagnosed in 2009 and is controlled with medication managed by PMD Diabetes mellitus Diagnosed in 2014 and she is currently on metformin. She states that her last hemoglobin A1c was high Chronic hypertension Diagnosed in 2009 and controlled on medication managed by primary care provider No pertinent past medical history Denies: Asthma seizures, DVT/PE PCP: Dr. Coronado Borderline personality disorder Major depressive disorder, recurrent severe without psychotic features 2014 currently on medication and follows up with [facility] Long-term current use of opiate analgesic Cervical facet syndrome Chronic radicular low back pain Has had surgery for chronic lower back pain. Surgical History History of colonoscopy History of esophagogastroduodenoscopy (EGD) S/P placement of nerve stimulator S/P removal by Dr Krishnamurthy in 2021. Hx of cholecystectomy 2011-laparoscopic [place] Dr. Barahona at [facility] [place] Hx of cervical spine surgery (~03/24/18) Dr Watts 03/24/18 Comments: Cervical laminectomy for placement of intraspinal, epidural paddle electrode arrays and placement of subcutaneous pulse generator. Hx of hysterectomy Had a total abdominal hysterectomy via Pfannenstiel incision for pelvic inflammatory disease per patient. She states that both tubes, uterus and the left ovary were removed. She only has her right ovary remaining at this time. Family History Mother Diabetes Heart disease Hyperlipidemia Brother Hypertension x 2 Sister Breast cancer Diagnose at age 35 Brother Lung cancer Denies family history of Colon cancer Ovarian cancer Anesthesia complication Bleeding disorder Uterine cancer Thyroid disease Stroke Social History Smoking and tobacco/nicotine status: current every day tobacco/nicotine user cigarettes Packs smoked per day: 0.15 Years cigarettes smoked: 49 Quit status (tobacco/nicotine): has tried quititng Number of times tried to quit tobacco: 10 Second hand smoke exposure: No Alcohol intake: former Substance/Drug Use: former Lives independently: Yes Household members: none Current occupational status: disabled Physical Exam 2 Const: COMMON NORMALS: no acute distress EXAM LIMITATIONS: altered mental status GENERAL APPEARANCE: cooperative, comfortable and frail appearing (mildly); not ill appearing HENMT: COMMON NORMALS: normocephalic HEAD & SCALP: normocephalic FACE & SINUS: face symmetric Eye: COMMON NORMALS: Equal, round and reactive pupils present and EOMs intact bilaterally PUPIL: Yes Equal, round and reactive pupils present Resp: COMMON NORMALS: normal respiratory effort Cardio: COMMON NORMALS: regular rate and regular rhythm RATE: regular rate RHYTHM: regular rhythm GI: COMMON NORMALS: Soft to palpation PALPATION: Yes Soft to palpation Neuro: ELEIL COMA SCALE: document GCS findings Eliel coma scale eye opening: Spontaneous [place] coma scale verbal response: Confused Eliel coma scale motor response: Obey commands Eliel coma scale total score: 14 MOTOR EXAM: Motor abnormalities not present Course 2 Vital Signs: Vital signs: Vital Signs Temperature 98.1 F 03/12/24 20:50 Pulse Rate 70 03/13/24 00:58 Respiratory Rate 18 03/13/24 00:58 Blood Pressure 133/81 03/12/24 21:05 Pulse Oximetry 93 03/13/24 00:58 Oxygen Delivery Me thod Room Air 03/12/24 21:05 MDM - Psych Medical Decision Making 69-year-old female with mental status changes. She appears to be more coherent now. No signs of active hallucinations in the room. Unknown whether this is related to medication she was taking, as she notes that she was placed on Suboxone, and has had these problems since that. She does state that she had a fall, although there is no evidence of intracranial injury on head CT today. Chest x-ray is negative. Urinalysis shows urinary tract infection which is treated here. Other laboratories benign. She will be allowed home on antibiotics for UTI. She can call her doctor in the morning, and ask if she should stop the Suboxone. Lab Data 03/12/24 22:38 03/12/24 22:38 Radiology Impressions Chest X-Ray 03/12/24 21:36 IMPRESSION: No acute findings. Head CT 03/12/24 21:36 IMPRESSION: No acute intracranial abnormality. Laboratory Results WBC 7.83 10^3/uL (3.29-11.43) 03/12/24 22:38 RBC 4.09 10^6/uL (3.85-5.65) 03/12/24 22:38 Hgb 12.20 g/dL (11.27-16.99) 03/12/24 22:38 Hct 36.1 % (36-47) 03/12/24 22:38 MCV 88.3 fl (85-98) 03/12/24 22:38 MCH 29.8 pg (27-33) 03/12/24 22:38 MCHC 33.8 g/dL (30-55) 03/12/24 22:38 RDW 12.8 % (12.1-15.1) 03/12/24 22:38 Plt Count 268 10^3/cmm (157-399) 03/12/24 22:38 MPV 9.1 fL (7.4-10.4) 03/12/24 22:38 Neut % (Auto) 66.0 % 03/12/24 22:38 Lymph % (Auto) 24.8 % 03/12/24 22:38 [place] % (Auto) 7.3 % 03/12/24 22:38 Eos % (Auto) 1.1 % 03/12/24 22:38 Baso % (Auto) 0.5 % 03/12/24 22:38 Neut # (Auto) 5.17 10^3/uL (1.8-7.7) 03/12/24 22:38 Lymph # (Auto) 1.9 10^3/uL (0.8-4.8) 03/12/24 22:38 [place] # (Auto) 0.6 10^3/uL (0.2-0.9) 03/12/24 22:38 Eos # (Auto) 0.1 10^3/uL (0.0-0.8) 03/12/24 22:38 Baso # (Auto) 0.0 10^3/uL (0.0-0.1) 03/12/24 22:38 Nucleated RBC % (auto) 0 % 03/12/24 22:38 Nucleated RBCs # 0.0 /100WBC 03/12/24 22:38 Sodium 137 mmol/L (136-145) 03/12/24 22:38 Potassium 3.5 mmol/L (3.5-5.1) 03/12/24 22:38 Chloride 99 mmol/L (98-107) 03/12/24 22:38 Carbon Dioxide 25 mmol/L (22-29) 03/12/24 22:38 Anion Gap 16.5 (5-19) 03/12/24 22:38 BUN 12 mg/dL (8-23) 03/12/24 22:38 Creatinine 0.5 mg/dL (0.5-0.9) 03/12/24 22:38 GFR Calculation 122.0 mL/min (90-130) 03/12/24 22:38 Glucose 112 mg/dL (65-115) 03/12/24 22:38 Calculated Osmolality 285 mOsm/kg (285-295) 03/12/24 22:38 Calcium 9.1 mg/dL (8.5-10.5) 03/12/24 22:38 Total Bilirubin 0.2 mg/dL (0.15-1.2) 03/12/24 22:38 AST 12 U/L (0-32) 03/12/24 22:38 ALT 7 U/L (0-33) 03/12/24 22:38 Alkaline Phosphatase 56 U/L (35-105) 03/12/24 22:38 Total Protein 6.8 g/dL (6.6-8.7) 03/12/24 22:38 Albumin 4.1 g/dL (3.5-5.2) 03/12/24 22:38 Globulin 2.7 g/dL (1.3-4.6) 03/12/24 22:38 Urine Color Yellow (Yellow) 03/12/24 22:30 Urine Appearance Clear (CLEAR) 03/12/24 22:30 Urine pH 5 (5-7) 03/12/24 22:30 Ur Specific [place] 1.020 (1.005-1.030) 03/12/24 22:30 Urine Protein Neg (Negative) 03/12/24 22:30 Urine Glucose (UA) Norm (Normal) 03/12/24 22:30 Urine Ketones 1+ (Negative) H 03/12/24 22:30 Urine Blood Neg (Negative) 03/12/24 22:30 Urine Nitrate Negative (Negative) 03/12/24 22:30 Urine Bilirubin Neg (Negative) 03/12/24 22:30 Urine Urobilinogen Neg mg/dL (Negative) 03/12/24 22:30 Ur Leukocyte Esterase 1+ (Negative) H 03/12/24 22:30 Urine RBC 0-4 /hpf (0-2) H 03/12/24 22:30 Urine WBC 5-10 /hpf (0-5) H 03/12/24 22:30 Ur Squamous Epith Cells 5-10 /hpf (0-5) H 03/12/24 22:30 Amorphous Sediment Not Reportable 03/12/24 22:30 Urine Bacteria 1+ /hpf (NONE) H 03/12/24 22:30 Urine Mucus 2+ /hpf 03/12/24 22:30 Salicylates < 0.3 mg/dL (3-10) L 03/12/24 22:38 Urine Opiates Screen Negative ng/mL (Negative) 03/12/24 22:30 Acetaminophen < 5.0 ug/mL (10-30) L 03/12/24 22:38 Ur Barbiturates Screen Positive ng/mL (Negative) H 03/12/24 22:30 Ur Phencyclidine Scrn Negative ng/mL (Negative) 03/12/24 22:30 Ur Amphetamines Screen Negative ng/mL (Negative) 03/12/24 22:30 U Benzodiazepines Scrn Negative ng/mL (Negative) 03/12/24 22:30 Urine Cocaine Screen Negative ng/mL (Negative) 03/12/24 22:30 U Marijuana (THC) Screen Negative ng/mL (Negative) 03/12/24 22:30 Ethyl Alcohol < 10 mg/dL (0-10) 03/12/24 22:38 All radiology interpretation(s) finalized by discharge Discharge Plan Discharge Patient Disposition: Home Clinical Impression: Acute delirium, Acute UTI Condition: Stable Prescriptions: New cefdinir 300 mg capsule 300 mg PO BID Qty: 14 0RF No Action (DME) 2L Oxygen via nc See Rx Instructions .Route .MEDSUPPLY Qty: 1 0RF Rx Instructions: As directed propranolol 10 mg tablet 10 mg PO BID Qty: 180 3RF pantoprazole 40 mg tablet,delayed release (DR/EC) 40 mg PO DAILY Qty: 90 3RF solifenacin [Vesicare] 10 mg tablet 10 mg PO DAILY Qty: 30 6RF alendronate 70 mg tablet See Rx Instructions .ROUTE .COMPLEX Qty: 12 2RF Dose Instruction: TAKE 1 TABLET BY MOUTH EVERY WEEK WHILE SITTING. DO NOT LIE DOWN WITHIN 30 MINUTES OF TAKING MEDICATION Rx Instructions: TAKE 1 TABLET BY MOUTH EVERY WEEK WHILE SITTING. DO NOT LIE DOWN WITHIN 30 MINUTES OF TAKING MEDICATION atorvastatin 20 mg tablet 20 mg PO BEDTIME@2000 Qty: 30 10RF losartan 100 mg tablet See Rx Instructions .ROUTE .COMPLEX Qty: 30 10RF Dose Instruction: TAKE 1 TABLET BY MOUTH EVERY DAY DIRECTED Rx Instructions: TAKE 1 TABLET BY MOUTH EVERY DAY DIRECTED acyclovir 400 mg tablet See Rx Instructions .ROUTE .COMPLEX Qty: 60 10RF Dose Instruction: TAKE 1 TABLET BY MOUTH TWO TIMES DAILY Rx Instructions: TAKE 1 TABLET BY MOUTH TWO TIMES DAILY amlodipine 5 mg tablet See Rx Instructions .ROUTE .COMPLEX Qty: 30 10RF Dose Instruction: TAKE 1 TABLET BY MOUTH EVERY DAY Rx Instructions: TAKE 1 TABLET BY MOUTH EVERY DAY duloxetine 60 mg capsule,delayed release(DR/EC) 120 mg PO DAILY Qty: 180 0RF nystatin 100,000 unit/gram powder 1 applic TOPICAL DAILY PRN (Reason: UNKNOWN) Qty: 60 1RF acetaminophen [Tylenol] 325 mg Tablet 325 mg PO QID PRN (Reason: Pain) primidone 50 mg tablet 100 mg PO DAILY budesonide-formoterol [Symbicort] 80-4.5 mcg/actuation HFA aerosol inhaler 2 puff inhalation BID cholecalciferol (vitamin D3) [Vitamin D3] 50 mcg (2,000 unit) tablet 50 mcg PO DAILY dalfampridine 10 mg tablet extended release 12 hr 10 mg PO Q12H trazodone 50 mg tablet 50 mg PO BEDTIME Qty: 30 0RF Discharge Orders: Discharge ED (Routine); Ordered 03/12/24 Ordered By: Ravindra Arthur Referrals: Darryl Coronado MD [Primary Care Provider] - 1-3 days Patient Instructions: Acute Delirium (ED), Urinary Tract Infection in Older Adults (ED), Opioid Safety, Pain Management Activity Restrictions/Additional Instructions: Symptoms you experience this evening may be due to urinary tract infection. They also may be due to side effects of your new medication. Call your doctor in the morning and asked some advice on whether or not to continue your Suboxone antibiotics as directed for urinary tract infection. Return for worsening mental status despite treatment, worsening falls despite treatment, fever despite 2-3 doses of antibiotics, any other concerning symptoms. Coding Level of Care Code ED Agricultural Production Engineer for Teresa Ewing
[2024-03-12 22:54] LABS: Basophils % 0.5 %; Eosinophils # 0.1 10^3/uL (0.0-0.8); Eosinophils % 1.1 %; Hematocrit 36.1 % (36-47); Lymphocytes # 1.9 10^3/uL (0.8-4.8); Lymphocytes % 24.8 %; Mean Corpuscular HGB Conc 33.8 g/dL (30-55); Mean Corpuscular Hemoglobin 29.8 pg (27-33); Mean Corpuscular Volume 88.3 fl (85-98); Mean Platelet Volume 9.1 fL (7.4-10.4); Monocytes # 0.6 10^3/uL (0.2-0.9); Monocytes % 7.3 %; Neutrophils # 5.17 10^3/uL (1.8-7.7); Nucleated Red Blood Cells % 0 %; Platelet Count 268 10^3/cmm (157-399); Red Blood Count 4.09 10^6/uL (3.85-5.65); Red Cell Distribution Width 12.8 % (12.1-15.1); White Blood Count 7.83 10^3/uL (3.29-11.43)
[2024-03-12] MEDS: ketorolac 30 mg/mL INJ 15 MG IVP (22:56)
[2024-03-12 22:58] LABS: Add Urine Microscopic? YES; Amphetamines Screen Urine Negative (Negative); Bacteria Urine 1+ /hpf; Barbiturates Screen Urine Positive (Negative); Benzodiazepines Screen Urine Negative (Negative); Bilirubin Urine Neg (Negative); Blood Urine Neg (Negative); Cocaine Screen Urine Negative (Negative); Glucose Urine UA Norm (Normal); Ketones Urine 1+ (Negative); Leukocyte Esterase Urine 1+ (Negative); Mucus Urine 2+ /hpf; Nitrate Urine Negative (Negative); Opiate Screen Urine Negative (Negative); PCP Screen Urine Negative (Negative); Protein Urine Neg (Negative); RBC Urine 0-4 /hpf (0-2); THC Screen Urine Negative (Negative); Urine Appearance Clear (CLEAR); Urine Color Yellow (Yellow); Urobilinogen Urine Neg (Negative); pH Urine 5 (5-7)
[2024-03-12 23:09] LABS: Alanine Aminotransferase 7 U/L (0-33); Albumin Level 4.1 g/dL (3.5-5.2); Alkaline Phosphatase 56 U/L (35-105); Anion Gap 16.5 (5-19); Aspartate Amino Transferase 12 U/L (0-32); Blood Urea Nitrogen 12 mg/dL (8-23); Calcium 9.1 mg/dL (8.5-10.5); Carbon Dioxide 25 mmol/L (22-29); Chloride 99 mmol/L (98-107); Creatinine Clr Calc Pharmacy 61.7887; Globulin 2.7 g/dL (1.3-4.6); Glucose 112 mg/dL (65-115); Osmolality Calculated 285 mOsm/kg (285-295); Potassium 3.5 mmol/L (3.5-5.1); Sodium 137 mmol/L (136-145); Total Bilirubin 0.2 mg/dL (0.15-1.2); Total Protein 6.8 g/dL (6.6-8.7)
[2024-03-12 23:12] LABS: Acetaminophen < 5.0 ug/mL (10-30); Alcohol Level < 10 mg/dL (0-10); Salicylate < 0.3 mg/dL (3-10)
[2024-03-13 00:58] VITALS: PULSE 70; RESP 18; O2SAT 93
== END 2024-03-13 01:15 | disposition home or self-care (01) ==
PROVIDERS: Emergency Provider Emergency Medicine; PCP Family Medicine
DX: R41.0 Disorientation, unspecified (principal); N39.0 Urinary tract infection, site not specified; F17.210 Nicotine dependence, cigarettes, uncomplicated; E11.9 Type 2 diabetes mellitus without complications; I10 Essential (primary) hypertension
CPT/HCPCS: 70450; 71045; 80053; 80306; 80307; 81001; 85025; 93005; 96374; 99285; J1885

== ENCOUNTER 2024-04-17 20:27 | Emergency (ER) | payer MEDICARE, MEDICAID, SELFPAY ==
--- NOTE | 2024-04-17 20:34 | XRR_ITS ---
PROCEDURE INFORMATION: Exam: XR Right Knee Exam date and time: 04/17/2024 8:57 PM Age: 69 years old Clinical indication: Injury or trauma; Fall; Blunt trauma; Knee; Right; Additional info: Fall pain TECHNIQUE: Imaging protocol: Radiologic exam of the right knee. Views: 3 views. COMPARISON: No relevant prior studies available. FINDINGS: Bones/joints: No acute fracture or dislocation. Mild narrowing of the medial compartment. Patchy sclerosis within the distal femoral metaphysis with a narrow zone of transition and rings and arcs appearance, favoring a benign process such as enchondroma. Soft tissues: Normal. XR/XR knee RT 3V* [id number] IMPRESSION: No acute osseous findings.
[2024-04-17 20:40] VITALS: BP 171/104; PULSE 90; RESP 16; TEMP 36.8; O2SAT 92; BMI 31.1
[2024-04-17 21:07] VITALS: BP 182/97; PULSE 79; RESP 18; O2SAT 94
--- NOTE | 2024-04-17 21:17 | W.ED.EXTPRO ---
HPI - Extremity Problem General: Chief complaint: Extremity Problem,Nontraumatic Stated complaint: Fell Rt Knee Injury Time Seen by Provider: 04/17/24 20:34 History of Present Illness: Who presents to the ER after a fall complaining of right knee pain. Patient does states she had EMS and does says she falls a lot. Patient is recently discharged from [facility] on approximately 814, she did test positive for COVID today at [place] then AMA from the facility after they told her she can have to stay in her room for the next 10 days. Related Data Home Medications Medication Instructions Recorded Confirmed acetaminophen 325 mg tablet 325 mg PO QID PRN Pain 11/11/20 03/22/24 (Tylenol) budesonide-formoterol HFA 80 2 puff inhalation BID 01/05/24 03/22/24 mcg-4.5 mcg/actuation aerosol inhaler (Symbicort) cholecalciferol (vitamin D3) 50 50 mcg PO DAILY 01/05/24 03/22/24 mcg (2,000 unit) tablet (Vitamin D3) dalfampridine 10 mg 10 mg PO Q12H 01/05/24 03/22/24 tablet,extended release,12 hr acyclovir 400 mg tablet 400 mg PO BID 03/22/24 03/22/24 ondansetron HCl 4 mg tablet 4 mg PO Q6H PRN Nausea And Vomiting 03/22/24 03/22/24 Previous Rx's Medication Instructions Recorded propranolol 10 mg tablet 10 mg PO BID #180 tabs 04/06/23 pantoprazole 40 mg tablet,delayed 40 mg PO DAILY #90 tabs 06/07/23 release solifenacin 10 mg tablet (Vesicare) 10 mg PO DAILY #30 tabs 11/29/23 alendronate 70 mg tablet See Rx Instructions .Route 12/05/23 .COMPLEX #12 tabs atorvastatin 20 mg tablet 20 mg PO BEDTIME@1999 #30 tabs 01/21/24 duloxetine 60 mg capsule,delayed 120 mg (2 x 60 mg) PO DAILY #180 03/01/24 release caps nystatin 100,000 unit/gram topical 1 applic topical DAILY PRN UNKNOWN 03/10/24 powder #60 grams alprazolam 0.5 mg tablet 0.5 mg PO TID PRN Anxiety #15 tabs 04/12/24 buspirone 10 mg tablet 10 mg PO BID #180 tabs 04/12/24 cyanocobalamin (vitamin B-12) 1,000 mcg PO DAILY #90 tabs 04/12/24 1,000 mcg tablet hydrocodone 5 mg-acetaminophen 325 1 tab PO Q8H PRN pain #10 tabs 04/12/24 mg tablet losartan 50 mg tablet 50 mg PO DAILY #90 tabs 04/12/24 nicotine (polacrilex) 4 mg buccal 4 mg mucous membrane Q2H PRN 04/12/24 lozenge Nicotine Cravings #30 ea olanzapine 5 mg disintegrating 2.5 mg (1/2 x 5 mg) PO 0900,2100 04/12/24 tablet #180 tabs trazodone 50 mg tablet 50 mg PO BEDTIME PRN Sleep #30 tabs 04/12/24 Allergies Allergy/AdvReac Type Severity Reaction Status Date / Time Penicillins Allergy HIVES Verified 03/21/24 18:46 latex AdvReac rash Verified 03/21/24 18:46 quetiapine [From Seroquel] AdvReac ADR-Hallucinating Verified 03/21/24 18:46 / DIZZINESS Review of Systems General: Reports: 10 or more systems reviewed and unremarkable except in HPI and below PFSH ED PFSH: Medical History 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 Chronic hypertension Diagnosed in 2009 and controlled on medication managed by primary care provider No pertinent past medical history Denies: Asthma seizures, DVT/PE PCP: Dr. Coronado Borderline personality disorder Major depressive disorder, recurrent severe without psychotic features 2014 currently on medication and follows up with [facility] Long-term current use of opiate analgesic Cervical facet syndrome Chronic radicular low back pain Has had surgery for chronic lower back pain. Surgical History Status post cervical spinal fusion History of colonoscopy History of esophagogastroduodenoscopy (EGD) S/P placement of nerve stimulator S/P removal by Dr Krishnamurthy in 2021. Hx of cholecystectomy 2012-laparoscopic [place]. Barahona [place] [facility] [place]x of cervical spine surgery (~03/24/18) Dr Watts 03/24/18 Comments: Cervical laminectomy for placement of intraspinal, epidural paddle electrode arrays and placement of subcutaneous pulse generator. Hx of hysterectomy Had a total abdominal hysterectomy via Pfannenstiel incision for pelvic inflammatory disease per patient. She states that both tubes, uterus and the left ovary were removed. She only has her right ovary remaining at this time. Family History Mother Diabetes Heart disease Hyperlipidemia Brother Hypertension x 2 Sister Breast cancer Diagnose at age 35 Brother Lung cancer Denies family history of Colon cancer Ovarian cancer Anesthesia complication Bleeding disorder Uterine cancer Thyroid disease Stroke Social History Smoking and tobacco/nicotine status: current every day tobacco/nicotine user cigarettes Packs smoked per day: 0.15 Years cigarettes smoked: 49 Quit status (tobacco/nicotine): has tried quititng Number of times tried to quit tobacco: 10 Second hand smoke exposure: No Alcohol intake: former Substance/Drug Use: former Lives independently: Yes Household members: none Current occupational status: disabled Physical Exam Const: COMMON NORMALS: no acute distress, average body habitus, patient oriented x3, no limitations, healthy appearing, alert and well nourished HENMT: COMMON NORMALS: normocephalic, atraumatic, hearing grossly normal bilaterally, external ears normal, Normal external nose present and moist oral mucous membranes HEAD & SCALP: normocephalic and atraumatic NOSE: Normal external nose present EXTERNAL EAR: Yes external ears normal Neck/C-Spine: COMMON NORMALS: no JVD Chest: COMMONS NORMALS: normal inspection of the chest and normal palpation of entire chest wall Resp: COMMON NORMALS: normal respiratory effort, No retractions, No use of accessory muscles and clear to auscultation bilaterally AUSCULTATION: clear to auscultation bilaterally Cardio: COMMON NORMALS: no JVD, regular rate, regular rhythm, S1 normal heart sound present, S2 normal heart sound present, No gallops present (Cardio), No clicks present (Cardio), No murmurs present (Cardio) and No rub (Cardio) RATE: regular rate RHYTHM: regular rhythm HEART SOUNDS: S1 normal heart sound present and S2 normal heart sound present GI: COMMON NORMALS: Normal to inspection, nondistended, normoactive bowel sounds present, Soft to palpation, non-tender, No hepatosplenomegaly present and no masses PALPATION: Yes Soft to palpation and Yes No hepatosplenomegaly present Extremity: RIGHT LOWER EXTREMITY: Yes knee joint (Very mild tenderness palpation no obvious edema crepitus or deformity) Neuro: COMMON NORMALS: patient oriented x3 SENSORIUM/ORIENTATION: Yes alert Course Vital Signs: Vital signs: Vital Signs Temperature 98.2 F 04/17/24 20:40 Pulse Rate 79 04/17/24 21:07 Respiratory Rate 18 04/17/24 21:07 Blood Pressure 182/97 04/17/24 21:07 Pulse Oximetry 94 04/17/24 21:07 Oxygen Delivery Me thod Room Air 04/17/24 21:07 MDM - Extremity (Nontraumatic) Medical Decision Making Patient with a recent fall with right knee pain, x-ray of the right knee showed no acute osseous injury. Medical Records I reviewed the patient's medical records. Lab Data I reviewed the patient's lab results. Radiology Impressions Knee X-Ray 04/17/24 20:34 IMPRESSION: No acute osseous findings. All radiology interpretation(s) finalized by discharge Discharge Plan Discharge Patient Disposition: Home Clinical Impression: Fall, Acute pain of right knee Condition: Stable Prescriptions: No Action propranolol 10 mg tablet 10 mg PO BID Qty: 180 3RF pantoprazole 40 mg tablet,delayed release (DR/EC) 40 mg PO DAILY Qty: 90 3RF solifenacin [Vesicare] 10 mg tablet 10 mg PO DAILY Qty: 30 6RF alendronate 70 mg tablet See Rx Instructions .ROUTE .COMPLEX Qty: 12 2RF Dose Instruction: TAKE 1 TABLET BY MOUTH EVERY WEEK WHILE SITTING. DO NOT LIE DOWN WITHIN 30 MINUTES OF TAKING MEDICATION Rx Instructions: TAKE 1 TABLET BY MOUTH EVERY WEEK WHILE SITTING. DO NOT LIE DOWN WITHIN 30 MINUTES OF TAKING MEDICATION atorvastatin 20 mg tablet 20 mg PO BEDTIME@2000 Qty: 30 10RF duloxetine 60 mg capsule,delayed release(DR/EC) 120 mg PO DAILY Qty: 180 0RF nystatin 100,000 unit/gram powder 1 applic TOPICAL DAILY PRN (Reason: UNKNOWN) Qty: 60 1RF acetaminophen [Tylenol] 325 mg Tablet 325 mg PO QID PRN (Reason: Pain) budesonide-formoterol [Symbicort] 80-4.5 mcg/actuation HFA aerosol inhaler 2 puff inhalation BID cholecalciferol (vitamin D3) [Vitamin D3] 50 mcg (2,000 unit) tablet 50 mcg PO DAILY dalfampridine 10 mg tablet extended release 12 hr 10 mg PO Q12H ondansetron HCl 4 mg tablet 4 mg PO Q6H PRN (Reason: Nausea And Vomiting) acyclovir 400 mg tablet 400 mg PO BID buspirone 10 mg Tablet 10 mg PO BID Qty: 180 0RF alprazolam 0.5 mg Tablet 0.5 mg PO TID PRN (Reason: Anxiety) Qty: 15 0RF olanzapine 5 mg Tablet,Disintegrating 2.5 mg PO 0900,2100 Qty: 180 0RF nicotine (polacrilex) 4 mg Lozenge 4 mg mucous membrane Q2H PRN (Reason: Nicotine Cravings) Qty: 30 0RF losartan 50 mg Tablet 50 mg PO DAILY Qty: 90 0RF cyanocobalamin (vitamin B-12) 1,000 mcg tablet 1,000 mcg PO DAILY Qty: 90 0RF hydrocodone-acetaminophen 5-325 mg tablet 1 tab PO Q8H PRN (Reason: pain) Qty: 10 0RF trazodone 50 mg tablet 50 mg PO BEDTIME PRN (Reason: Sleep) Qty: 30 0RF Discharge Orders: Discharge ED (Routine); Ordered 04/17/24 Ordered By: Fredy Sykes Referrals: Darryl Coronado MD [Primary Care Provider] - 1 week Patient Instructions: Knee Pain (ED), Arthralgia (ED) Activity Restrictions/Additional Instructions: The x-ray of your knee did not show any acute osseous injury. You does have a contusion and arthritis. Please follow-up with your family practice physician within the next 7 days for further evaluation and treatment as needed. Coding Level of Care Code ED Fund Accounting Manager for Teresa Ewing
[2024-04-17] MEDS: ketorolac 10 mg Tablet PO (21:19)
[2024-04-17 22:24] VITALS: PULSE 70; RESP 18; O2SAT 94
== END 2024-04-17 22:26 | disposition home or self-care (01) ==
PROVIDERS: Emergency Provider Emergency Medicine; PCP Family Medicine
DX: M25.561 Pain in right knee (principal); F17.210 Nicotine dependence, cigarettes, uncomplicated; E11.9 Type 2 diabetes mellitus without complications; I10 Essential (primary) hypertension
CPT/HCPCS: 73562; 99283

== ENCOUNTER → 2024-05-09 14:39 | Outpatient (BNVA) | payer MEDICARE, OTHER, SELFPAY | PROVIDERS: PCP Family Medicine; Visit Provider Family Medicine | DX: R30.0 Dysuria (principal); N39.0 Urinary tract infection, site not specified | CPT/HCPCS: 81000; 87086 ==

== ENCOUNTER → 2024-05-19 14:11 | Outpatient (BNVA) | payer MEDICARE, SELFPAY | PROVIDERS: PCP Family Medicine; Visit Provider Specialist | DX: R55 Syncope and collapse (principal); R41.3 Other amnesia; R56.9 Unspecified convulsions | CPT/HCPCS: 95819 ==

== ENCOUNTER → 2024-06-14 09:57 | Outpatient (BNVA) | payer MEDICARE, SELFPAY | PROVIDERS: PCP Family Medicine; Visit Provider Surgery | DX: R10.31 Right lower quadrant pain (principal) | CPT/HCPCS: 99204 ==

== ENCOUNTER 2024-07-19 10:20 | Outpatient (CLI) | payer MEDICARE, MEDICAID, SELFPAY ==
[2024-07-19] MEDS: iohexol 350 mg/mL 500 mL Btl (per mL) PO (10:47)
[2024-07-19 11:52] LABS: Blood Urea Nitrogen 7 mg/dL (8-23); Glomerular Filtration Rate 98.8 mL/min (90-130)
[2024-07-19] MEDS: iohexol 350 mg/mL 500 mL Btl (per mL) IV (11:59)
--- NOTE | 2024-07-19 12:00 | CT_ITS ---
WS: [id number] CT ABDOMEN AND PELVIS WITH CONTRAST HISTORY: R10.31 - Right lower quadrant pain TECHNIQUE: Imaging performed of the abdomen and pelvis with IV contrast. Single phase imaging of the abdomen. Coronal and sagittal reformats are submitted. All CT scans at [facility] use at mini st one of these dose optimization techniques: automated exposure control; mA and/or kV adjustment per patient size (includes targeted exams where dose is matched to clinical indication); or iterative re construction. IV CONTRAST: Omnipaque 350; 100 mL IV. Oral contrast: Yes. DLP: 554.80 mGy.cm COMPARISON: 11/11/2020 Lower thorax: Benign granuloma medial RIGHT lower lobe. Heart is normal size. No hiatal hernia. Liver/biliary system: Normal size with no intrahepatic dilatation. Gallbladder: Prior cholecystectomy. No bile duct dilatation. Pancreas: Normal size pancreas and pancreatic duct. No adjacent inflammation. Spleen: Normal size spleen. No mass or infarct. Adrenal glands: Normal. Right kidney: Normal size kidney. Cortical cyst in the posterior mid kidney measures 10 x 16 mm. No s olid mass or obstruction. Left kidney: Normal. Aorta: Mild atherosclerosis aorta. Mesenteric arteries are normal. Lymphadenopathy: None. Free fluid: None. GI tract: Normal stomach. No small bowel obstruction. Mild circumferential wall thickening involving the cecum including the terminal ileum and ascending colon. There are also a few small RIGHT lower qu adrant lymph nodes. The appendix is normal. Mild diffuse constipation. Abdominal wall: Unremarkable abdominal wall. No hernia. Pelvis: Prior hysterectomy. No free fluid. Negative urinary bladder. Bones: Unremarkable. CT/CT abdomen pelvis w con* [id number] IMPRESSION: 1. Mild circumferential wall thickening involving the ascending colon with a f ew small RIGHT lower quadrant lymph nodes. Mild soft tissue thickening extends to the base of the terminal ileum. Differential includes a mild inflammatory re action or early neoplastic disease. Recommend colonoscopy. 2. No GI tract obstruction. 3. No ascites. 4. Negative liver. 5. No adrenal mass.
== END 2024-07-19 10:21 | disposition home or self-care (01) ==
LOC: RAD 10:21
PROVIDERS: PCP Family Medicine; Visit Provider Surgery
DX: R10.31 Right lower quadrant pain (principal); N28.1 Cyst of kidney, acquired; Z90.710 Acquired absence of both cervix and uterus
CPT/HCPCS: 74177; 82565; 84520

== ENCOUNTER → 2024-08-02 12:37 | Outpatient (BNVA) | payer MEDICARE, MEDICAID, SELFPAY | PROVIDERS: PCP Family Medicine; Visit Provider Surgery | DX: K59.00 Constipation, unspecified (principal); R10.9 Unspecified abdominal pain; Z09 Encounter for follow-up examination after completed treatment for conditions other than malignant neoplasm | CPT/HCPCS: 99214 ==

== ENCOUNTER 2024-08-10 11:14 | Outpatient (CLI) | payer MEDICARE, MEDICAID, SELFPAY ==
--- NOTE | 2024-08-10 12:00 | MM_ITS ---
WS: [id number] BILATERAL 3D TOMOSYNTHESIS DIGITAL DIAGNOSTIC MAMMOGRAPHY WITH CAD CLINICAL INFORMATION: Z12.39 - Encounter for other screening for malignant neop... HISTORY: RIGHT lateral breast pain COMPARISON: 2023 TECHNIQUE: Bilateral CC, MLO, and ML views. FINDINGS: Scattered fibroglandular densities bilaterally. Incidental punctate and lucent centered calcifications. Vascular calcifications. Secretory calcificat ions. Ovoid nodule near the chest wall likely intramammary lymph node stable over multiple prior stud ies. Ultrasound area of concern RIGHT breast is pending. ULTRASOUND BREAST RIGHT TECHNIQUE: Ultrasound right breast focused area of concern. CLINICAL INFORMATION: Z12.39 - Encounter for other screening for malignant neop... FINDINGS: Ultrasound lateral RIGHT breast in the area of concern. Normal underlying parenchymal tissue. No cyst ic or solid lesions. No suspicious lesions to target for biopsy. Recommend return to annual screen ma mmography. MM/MM diag BI tomosynthesis [id number] IMPRESSION: DENSITY: There are scattered areas of fibroglandular density. BI-RADS: 2 - Benign. FOLLOW UP: 1 Year Follow-up Recommend return to annual screening mammography.
--- NOTE | 2024-08-10 12:30 | US_ITS ---
WS: [id number] BILATERAL 3D TOMOSYNTHESIS DIGITAL DIAGNOSTIC MAMMOGRAPHY WITH CAD CLINICAL INFORMATION: Z12.39 - Encounter for other screening for malignant neop... HISTORY: RIGHT lateral breast pain COMPARISON: 2023 TECHNIQUE: Bilateral CC, MLO, and ML views. FINDINGS: Scattered fibroglandular densities bilaterally. Incidental punctate and lucent centered calcifications. Vascular calcifications. Secretory calcificat ions. Ovoid nodule near the chest wall likely intramammary lymph node stable over multiple prior stud ies. Ultrasound area of concern RIGHT breast is pending. ULTRASOUND BREAST RIGHT TECHNIQUE: Ultrasound right breast focused area of concern. CLINICAL INFORMATION: Z12.39 - Encounter for other screening for malignant neop... FINDINGS: Ultrasound lateral RIGHT breast in the area of concern. Normal underlying parenchymal tissue. No cyst ic or solid lesions. No suspicious lesions to target for biopsy. Recommend return to annual screen ma mmography. US/US breast RT limited* [id number] IMPRESSION: DENSITY: There are scattered areas of fibroglandular density. BI-RADS: 2 - Benign. FOLLOW UP: 1 Year Follow-up Recommend return to annual screening mammography.
== END 2024-08-10 11:15 | disposition home or self-care (01) ==
PROVIDERS: PCP Family Medicine; Visit Provider Nurse Practitioner Women's Health
DX: R92.323 Mammographic fibroglandular density, bilateral breasts (principal); R92.1 Mammographic calcification found on diagnostic imaging of breast; N64.4 Mastodynia
CPT/HCPCS: 76642; 77062; G0279

== ENCOUNTER 2024-08-17 07:52 | Day surgery (SDC) | payer MEDICARE, MEDICAID, SELFPAY ==
[2024-08-17 08:06] VITALS: BP 164/81; PULSE 78; RESP 18; TEMP 36.1; O2SAT 95; BMI 30.2
[2024-08-17] MEDS: sodium chloride 0.9% 500 ML 15 ML IV (08:14)
--- NOTE | 2024-08-17 08:19 | P.ANESASSM_ITS ---
Pre-Anesthetic Assessment Height/Weight: Height 1.57 m Weight 74.843 kg Temp Pulse Resp BP Pulse Ox O2 Del Method 97.0 F L 78 18 164/81 95 Room Air 08/17/24 08:06 08/17/24 08:06 08/17/24 08:06 08/17/24 08:06 08/17/24 08:06 08/17/24 08:06 Preop Diagnosis: abdominal pain Operation Date: 08/17/24 09:00 Proposed Procedures p Colonoscopy - 78786, g0105, K59.00, R10.9(Not Applicable) - Tremaine Sarah MD Familial anesthetic complications: none Was Beta Christina taken within 24 hours: Yes Was Clonidine taken within 24 hours: N/A Last intake: Intake Last Liquid Date 08/16/24 Last Liquid Time 12:00 Last Solid Date 08/14/24 Last Solid Time 18:00 Social Tobacco (quit smoking 2 weeks ago) and No alcohol Exam oriented x 3 and clear to auscultation bilaterally Airway Mallampati: Class III Dentition: false (upper) History/ROS No significant history except as noted Pulmonary Chronic Obstructive Pulmonary Disease (uses inhaler as needed) CV/HEM Hypertension None reported Hepatic None reported GI abdominal pain Metabolic None reported Musc/skel None reported Neuropsych Transient Ischemic Attack (around 2018) Anesthetic Plan ASA status: 3 Anesthesia: Anesthesia Evaluation and MAC Risk of > 500 ml blood loss (7ml/kg in children): No Medications/Allergies Home Medications Medication Instructions Recorded Confirmed Last Taken Type acetaminophen 325 mg tablet 325 mg PO QID PRN Pain 11/11/20 08/15/24 08/15/24 History (Tylenol) propranolol 10 mg tablet 10 mg PO BID #180 tabs 04/06/23 08/15/24 08/17/24 07:30 Rx solifenacin 10 mg tablet (Vesicare) 10 mg PO DAILY #30 tabs 11/29/23 08/15/24 08/16/24 Rx cholecalciferol (vitamin D3) 50 50 mcg PO DAILY 01/05/24 08/15/24 08/16/24 History mcg (2,000 unit) tablet (Vitamin D3) atorvastatin 20 mg tablet 20 mg PO BEDTIME@1999 #30 tabs 01/21/24 08/15/24 08/16/24 Rx nystatin 100,000 unit/gram topical 1 applic topical DAILY PRN UNKNOWN 03/10/24 08/17/24 2 Months Ago Rx powder #60 grams ~06/17/24 acyclovir 400 mg tablet 400 mg PO BID 03/22/24 08/15/24 08/16/24 History cyanocobalamin (vitamin B-12) 1,000 mcg PO DAILY #90 tabs 04/12/24 08/15/24 08/16/24 Rx 1,000 mcg tablet losartan 50 mg tablet 50 mg PO DAILY #90 tabs 04/12/24 08/15/24 08/16/24 Rx buspirone 10 mg tablet 10 mg PO BID #180 tabs 04/25/24 08/15/24 08/16/24 Rx duloxetine 60 mg capsule,delayed 120 mg (2 x 60 mg) PO DAILY #180 04/25/24 08/15/24 08/16/24 Rx release caps pantoprazole 40 mg tablet,delayed 40 mg PO DAILY #90 tabs 06/20/24 08/15/24 08/16/24 Rx release ondansetron HCl 4 mg tablet 4 mg PO Q6H PRN Nausea And 07/13/24 08/15/24 08/14/24 Rx Vomiting #30 tabs naproxen 500 mg tablet 500 mg PO BID PRN pain #60 tabs 07/17/24 08/15/24 08/15/24 Rx alendronate 70 mg tablet 70 mg PO .WEEKLY 08/15/24 08/15/24 08/16/24 History budesonide-formoterol HFA 80 2 puff inhalation PRN PRN sob 08/15/24 08/17/24 4 Weeks Ago History mcg-4.5 mcg/actuation aerosol ~07/20/24 inhaler (Symbicort) dalfampridine 10 mg 10 mg PO BID 08/15/24 08/15/24 08/16/24 History tablet,extended release,12 hr (Ampyra) trazodone 100 mg tablet 100 mg PO DAILY PRN insomnia #60 08/16/24 08/17/24 08/16/24 Rx tabs Allergies Allergy/AdvReac Type Severity Reaction Status Date / Time Penicillins Allergy HIVES Verified 08/15/24 08:42 latex AdvReac rash Verified 08/15/24 08:42 quetiapine [From Seroquel] AdvReac ADR-Hallucinating Verified 08/15/24 08:42 / DIZZINESS Current Medications Generic Name Dose Route Start Last Admin Trade Name Freq PRN Reason Stop Dose Admin Sodium Chloride 500 mls @ 15 mls/hr 08/17/24 07:55 08/17/24 08:14 Sodium Chloride 0.9% IV 08/18/24 07:54 15 mls/hr .Q24H PRN Administration COLONOSCOPY FLUIDS PFSH Anesthesia Medical History 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 Chronic hypertension Diagnosed in 2009 and controlled on medication managed by primary care provider No pertinent past medical history Denies: Asthma seizures, DVT/PE PCP: Dr. Coronado Borderline personality disorder Major depressive disorder, recurrent severe without psychotic features 2014 currently on medication and follows up with [facility] [place] Long-term current use of opiate analgesic Cervical facet syndrome Chronic radicular low back pain Has had surgery for chronic lower back pain. Surgical History Status post cervical spinal fusion History of colonoscopy History of esophagogastroduodenoscopy (EGD) S/P placement of nerve stimulator S/P removal by Dr Krishnamurthy in 2021. Hx of cholecystectomy 2011-laparoscopic procedure by Dr. Barahona at [facility] [place] Hx of cervical spine surgery (~03/24/18) Dr Watts 03/24/18 Comments: Cervical laminectomy for placement of intraspinal, epidural paddle electrode arrays and placement of subcutaneous pulse generator. Hx of hysterectomy Had a total abdominal hysterectomy via Pfannenstiel incision for pelvic inflammatory disease per patient. She states that both tubes, uterus and the left ovary were removed. She only has her right ovary remaining at this time. Family History Mother Diabetes Heart disease Hyperlipidemia Brother Hypertension x 2 Sister Breast cancer Diagnose at age 35 Brother Lung cancer Denies family history of Colon cancer Ovarian cancer Anesthesia complication Bleeding disorder Uterine cancer Thyroid disease Stroke Social History (Updated 08/02/24 @ 13:13 by Gabriela Sahu) Smoking and tobacco/nicotine status: current every day tobacco/nicotine user cigarettes Packs smoked per day: 0.15 Years cigarettes smoked: 49 Quit status (tobacco/nicotine): has tried quititng Number of times tried to quit tobacco: 10 Second hand smoke exposure: No Alcohol intake: former Substance/Drug Use: former Lives independently: Yes Household members: none Current occupational status: disabled Data Anesthesia Cardiac Studies: No Data to Display
--- NOTE | 2024-08-17 08:42 | P.HPUD_ITS ---
Surgery/Procedure H&P Update DATE OF PROCEDURE: August 17, 2024 DATE H&P PERFORMED: 08/02/24 H&P UPDATE INFORMATION: I have reviewed H&P completed within last 30 days, I have examined patient prior to procedure, No changes to prior documentation and H&P is in [facility] EMR on date indicated PREOP DIAGNOSIS: abdominal pain PLANNED PROCEDURE: Operation Date: 08/17/24 09:00 Proposed Procedures p Colonoscopy - 93196, g0105, K59.00, R10.9(Not Applicable) - Tremaine Sarah MD
[2024-08-17 09:10] VITALS: BP 135/72; PULSE 84; RESP 14; TEMP 36.3; O2SAT 97
[2024-08-17 09:15] VITALS: BP 171/88; PULSE 86; RESP 18; O2SAT 98
--- NOTE | 2024-08-17 09:19 | ANE.PACU2 ---
Inpatient post-anesthesia follow up: Airway intact: Yes Vital signs: Temperature 97.3 F Pulse Rate 84 Respiratory Rate 14 Blood Pressure 135/72 Pulse Oximetry 97 Oxygen Delivery Me thod Room Air Oxygen Flow Rate Fraction of Inspir ed Oxygen Hydration adequate: Yes Nausea and vomiting: No Pain level: 1 Mental status: Baseline
[2024-08-17 09:25] VITALS: BP 167/93; PULSE 73; RESP 18; O2SAT 99
== END 2024-08-17 09:42 | disposition home or self-care (01) ==
PROVIDERS: PCP Family Medicine; Visit Provider Surgery
PROC: 0DJD8ZZ Inspection of Lower Intestinal Tract, Via Natural or Artificial Opening Endoscopic (ICD-10-PCS; CPT 45378; principal; 2024-08-17 09:00)
DX: K59.00 Constipation, unspecified (principal); R10.9 Unspecified abdominal pain; K64.4 Residual hemorrhoidal skin tags; J44.9 Chronic obstructive pulmonary disease, unspecified; I10 Essential (primary) hypertension; Z86.73 Personal history of transient ischemic attack (TIA), and cerebral infarction without residual deficits; E78.00 Pure hypercholesterolemia, unspecified; E11.9 Type 2 diabetes mellitus without complications; Z98.1 Arthrodesis status; F17.210 Nicotine dependence, cigarettes, uncomplicated
CPT/HCPCS: 45380; 88305; J0360; J2704; J7040

== ENCOUNTER → 2024-09-12 10:49 | Outpatient (BNVA) | payer MEDICARE, MEDICAID, SELFPAY | PROVIDERS: PCP Family Medicine; Visit Provider Family Medicine | DX: E11.9 Type 2 diabetes mellitus without complications (principal); E53.8 Deficiency of other specified B group vitamins; E55.9 Vitamin D deficiency, unspecified; Z51.81 Encounter for therapeutic drug level monitoring | CPT/HCPCS: 80053; 82306; 82607; 83036; 85025 ==

== ENCOUNTER → 2024-09-19 10:46 | Outpatient (BNVA) | payer MEDICARE, MEDICAID, SELFPAY | PROVIDERS: PCP Family Medicine; Visit Provider Surgery | DX: Z09 Encounter for follow-up examination after completed treatment for conditions other than malignant neoplasm (principal) | CPT/HCPCS: 99214 ==

== ENCOUNTER 2024-12-19 13:51 | Emergency (ER) | payer MEDICARE, MEDICAID, SELFPAY ==
[2024-12-19 13:53] VITALS: BP 114/68; PULSE 106; RESP 26; TEMP 37.1; O2SAT 95; BMI 32.9
--- NOTE | 2024-12-19 13:56 | ECG_ITS ---
[facility]24[facility]19 Pat Name: Ruthie Fontenot Department: Room: Gender: Female Credit Review Manager: : 1955 Requested By: Jose Juan Mendoza Order Number: [id number] Joshua MD: Shahana Kelley M.D. Measurements Intervals [place] Rate: 102 P: 11 MA: 155 QRS: 48 QRSD: 82 T: 49 QT: 337 QTc: 440 Interpretive Statements SINUS TACHYCARDIA ABNORMAL RHYTHM ECG Compared to ECG 03/21/2024 19:11:43 Sinus rhythm no longer present Electronically Signed On 12-20-2024 08:45:36 CDT by Shahana Kelley M.D. [email or web address]
--- NOTE | 2024-12-19 14:12 | XR_ITS ---
WS: [id number] Exam: XR chest 1V portable [id number] Date/Time of Exam: 12/19/2024 2:30 PM Reason For Exam: sob Comparison 03/21/2024. Lungs are clear and fully expanded. Heart size is top limits normal. No pleural effusions. Bony structures are intact. Fusion hardware in the lower C-spine. XR/XR chest 1V portable [id number] IMPRESSION: 1. No acute cardiopulmonary finding.
[2024-12-19 14:41] LABS: Basophils # 0.1 10^3/uL (0.0-0.1); Eosinophils # 0.2 10^3/uL (0.0-0.8); Eosinophils % 2.5 %; Hematocrit 38.2 % (36-47); Lymphocytes # 1.6 10^3/uL (0.8-4.8); Lymphocytes % 22.2 %; Mean Corpuscular Hemoglobin 29.4 pg (27-33); Mean Corpuscular Volume 89.3 fl (85-98); Mean Platelet Volume 8.7 fL (7.4-10.4); Monocytes # 0.6 10^3/uL (0.2-0.9); Monocytes % 8.5 %; Neutrophils % 65.5 %; Nucleated Red Blood Cells % 0 %; Platelet Count 258 10^3/cmm (157-399); Red Blood Count 4.28 10^6/uL (3.85-5.65); Red Cell Distribution Width 12.8 % (12.1-15.1); White Blood Count 7.17 10^3/uL (3.29-11.43)
[2024-12-19 14:47] LABS: D Dimer <= 0.27 ug/mLFEU (0-0.59); Lactic Sepsis W/Reflex 0.8 mmol/L (0.5-2.2)
[2024-12-19 14:51] VITALS: BP 160/100; PULSE 104; O2SAT 97
[2024-12-19 14:55] LABS: Troponin(5th) Baseline < 6 ng/L (0-10)
[2024-12-19 15:03] VITALS: BP 153/90; PULSE 97; O2SAT 94
[2024-12-19] MEDS: ketorolac 30 mg/mL INJ 15 MG IVP (15:04)
[2024-12-19 15:05] LABS: Alanine Aminotransferase 12 U/L (0-33); Albumin Level 4.3 g/dL (3.5-5.2); Alkaline Phosphatase 61 U/L (35-105); Anion Gap 15.5 (5-19); Aspartate Amino Transferase 15 U/L (0-32); Blood Urea Nitrogen 13 mg/dL (8-23); Calcium 9.1 mg/dL (8.5-10.5); Carbon Dioxide 24 mmol/L (22-29); Chloride 104 mmol/L (98-107); Creatinine Clr Calc Pharmacy 64.7876; Glomerular Filtration Rate 98.8 mL/min (90-130); Glucose 100 mg/dL (65-115); Lipase 32 U/L (13-60); Magnesium 1.8 mg/dL (1.7-2.3); NT Pro B Type Natriuretic Pept < 36 pg/mL (0-125); Osmolality Calculated 288 mOsm/kg (285-295); Potassium 4.5 mmol/L (3.5-5.1); Sodium 139 mmol/L (136-145); Total Bilirubin 0.2 mg/dL (0.15-1.2); Total Protein 6.3 g/dL (6.6-8.7)
[2024-12-19 15:10] LABS: Bilirubin Urine Negative (Negative); Blood Urine Negative (Negative); Glucose Urine UA Negative (Normal); Ketones Urine Negative (Negative); Leukocyte Esterase Urine Trace (Negative); Nitrate Urine Negative (Negative); Protein Urine Negative (Negative); Specific Gravity, Urine 1.014 (1.005-1.030); Urine Appearance Clear (CLEAR); Urine Color Yellow (Yellow); Urobilinogen Urine 0.2 mg/dL (Negative); pH Urine 6.5 (5-7)
[2024-12-19 15:13] LABS: Bacteria Urine None Seen /hpf; Hyaline Casts Urine 0-4 /lpf; RBC Urine 0-2 /hpf (0-2); Squamous Epithelial Cell Urine 0-5 /hpf (0-5); WBC Urine 0-5 /hpf (0-5)
[2024-12-19 15:30] VITALS: BP 123/88; PULSE 99; O2SAT 95
[2024-12-19 15:48] LABS: Influenza A NEGATIVE (Negative); Influenza B NEGATIVE (Negative); Respiratory Syncytial Virus Ce NEGATIVE (Negative); SARS-CoV-2 PCR NEGATIVE (Negative)
--- NOTE | 2024-12-19 15:49 | PC.NURSE ---
Pt was yelling for help, upon entering room, pt states There's blood everywhere Pt had pulled out left hand IV. This nurse applied pressure to IV site, IV catheter was intact. Pt IV site wrapped with pressure bandage. Blood on floor cleaned up.
[2024-12-19 16:06] VITALS: PULSE 96; O2SAT 96
--- NOTE | 2024-12-19 16:48 | W.ED.SOB ---
HPI - SOB/Dyspnea General: Chief Complaint: Shortness of Breath/Dyspnea Stated Complaint: SOB, Weakness, Fever Time Seen by Provider: 12/19/24 14:00 History of Present Illness: HPI Narrative: 69-year-old female with past medical history of COPD, fibromyalgia is presenting with generalized bodyaches and right thoracic back pain that she reports is fibromyalgia pain. Chief complaint states shortness of breath weakness and fever however the patient denies any significant fever has had mild chills she does have chronic shortness of breath she is on home O2 2 L and she is satting well. She denies any chest pain no abdominal pain no vomiting diarrhea no urinary symptoms. She is complaining of her chronic acute on chronic fibromyalgia exacerbation for the most part. Denies any numbness or motor weakness bowel or bladder incontinence. Associated symptoms: Deny abdominal pain, chest pain, extremity pain, fever(s), lightheadedness, nausea, palpitations, syncope or vomiting Related Data Home Medications ?Medication ?Instructions ?Recorded ?Confirmed acetaminophen 325 mg tablet 325 mg PO QID PRN Pain 11/11/20 12/19/24 (Tylenol) cholecalciferol (vitamin D3) 50 50 mcg PO DAILY 01/05/24 12/19/24 mcg (2,000 unit) tablet (Vitamin D3) acyclovir 400 mg tablet 400 mg PO BID 03/22/24 12/19/24 alendronate 70 mg tablet 70 mg PO .WEEKLY 08/15/24 12/19/24 budesonide-formoterol HFA 80 2 puff inhalation PRN PRN sob 08/15/24 12/19/24 mcg-4.5 mcg/actuation aerosol inhaler (Symbicort) amlodipine 5 mg tablet 5 mg PO DAILY 12/19/24 12/19/24 lorazepam 0.5 mg tablet 0.5 mg PO DAILY 12/19/24 12/19/24 primidone 50 mg tablet 50 mg PO BID 12/19/24 12/19/24 risperidone 0.25 mg tablet 0.25 mg PO BID 12/19/24 12/19/24 zolpidem 5 mg tablet 5 mg PO BEDTIME 12/19/24 12/19/24 Previous Rx's ?Medication ?Instructions ?Recorded atorvastatin 20 mg tablet 20 mg PO BEDTIME@1999 #30 tabs 01/21/24 cyanocobalamin (vitamin B-12) 1,000 mcg PO DAILY #90 tabs 04/12/24 1,000 mcg tablet losartan 50 mg tablet 50 mg PO DAILY #90 tabs 04/12/24 pantoprazole 40 mg tablet,delayed 40 mg PO DAILY #90 tabs 06/20/24 release propranolol 10 mg tablet 10 mg PO BID #180 tabs 08/17/24 buspirone 10 mg tablet 10 mg PO BID #180 tabs 09/21/24 duloxetine 60 mg capsule,delayed 120 mg (2 x 60 mg) PO DAILY #180 09/21/24 release caps trazodone 100 mg tablet 200 mg (2 x 100 mg) PO .HS PRN 09/21/24 insomnia #180 tabs naproxen 500 mg tablet 500 mg PO BID PRN pain #60 tabs 10/09/24 nystatin 100,000 unit/gram topical 1 applic topical DAILY PRN UNKNOWN 10/09/24 powder #60 grams ondansetron HCl 4 mg tablet 4 mg PO Q6H PRN Nausea And 10/12/24 Vomiting #30 tabs solifenacin 5 mg tablet 5 mg PO DAILY #30 tabs 12/04/24 dalfampridine 10 mg 10 mg PO Q12H #60 tabs 12/05/24 tablet,extended release,12 hr risperidone 1 mg tablet 1 mg PO BID #60 tabs 12/18/24 ketorolac 10 mg tablet 10 mg PO Q8H PRN pain 3 days #10 12/19/24 tabs Allergies Allergy/AdvReac Type Severity Reaction Status Date / Time Penicillins Allergy HIVES Verified 12/19/24 14:03 latex AdvReac rash Verified 12/19/24 14:03 quetiapine (From Seroquel) AdvReac ADR-Hallucinating Verified 12/19/24 14:03 / DIZZINESS Review of Systems Const: Reports: chills and body aches; Denies: fever(s), change in appetite, malaise or night sweats Eyes: Denies: change in vision ENMT: Denies: throat pain Card: Denies: chest pain, palpitations, irregular heart rhythm, edema, swelling of feet/ankles, lightheadedness, syncope or pre-syncope Resp: Denies: dyspnea, productive cough or wheezing GI: Denies: abdominal pain, nausea, vomiting or diarrhea : Denies: flank pain, difficulty voiding, dysuria or urinary frequency Musc: Reports: back pain; Denies: neck pain, extremity pain, extremity swelling or joint redness Skin/Breast: Denies: rash Neuro: Denies: headache(s) PFSH ED PFSH: Medical History 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 Chronic hypertension Diagnosed in 2009 and controlled on medication managed by primary care provider No pertinent past medical history Denies: Asthma seizures, DVT/PE PCP: Dr. Coronado Borderline personality disorder Major depressive disorder, recurrent severe without psychotic features 2014 currently on medication and follows up with [facility] [place] Long-term current use of opiate analgesic Cervical facet syndrome Chronic radicular low back pain Has had surgery for chronic lower back pain. Surgical History History of eyelid surgery Right - Mann Status post cervical spinal fusion History of colonoscopy History of esophagogastroduodenoscopy (EGD) S/P placement of nerve stimulator S/P removal by Dr Krishnamurthy in 2021. Hx of cholecystectomy 2011-laparoscopic procedure by Dr. Barahona at [facility] [place] Hx of cervical spine surgery (~03/24/18) Dr Watts 03/24/18 Comments: Cervical laminectomy for placement of intraspinal, epidural paddle electrode arrays and placement of subcutaneous pulse generator. Hx of hysterectomy Had a total abdominal hysterectomy via Pfannenstiel incision for pelvic inflammatory disease per patient. She states that both tubes, uterus and the left ovary were removed. She only has her right ovary remaining at this time. Family History Mother Diabetes Heart disease Hyperlipidemia Brother Hypertension x 2 Sister Breast cancer Diagnose at age 35 Brother Lung cancer Denies family history of Colon cancer Ovarian cancer Anesthesia complication Bleeding disorder Uterine cancer Thyroid disease Stroke Social History Smoking and tobacco/nicotine status: former use of tobacco/nicotine Quit status (tobacco/nicotine): has quit using Year quit tobacco: 2023 Former quit date comment: Quit 05/2024 Second hand smoke exposure: No Alcohol intake: former Substance/Drug Use: former Lives independently: Yes Household members: none Current occupational status: disabled Physical Exam Const: COMMON NORMALS: no acute distress, patient oriented x3 and alert HENMT: COMMON NORMALS: normocephalic and atraumatic HEAD & SCALP: normocephalic and atraumatic Eye: COMMON NORMALS: Equal, round and reactive pupils present, EOMs intact bilaterally and conjunctivae normal CONJUNCTIVA: Yes conjunctivae normal PUPIL: Yes Equal, round and reactive pupils present Neck/C-Spine: COMMON NORMALS: full ROM and no JVD Chest: COMMONS NORMALS: normal inspection of the chest Resp: COMMON NORMALS: normal respiratory effort, No retractions, No use of accessory muscles and clear to auscultation bilaterally EFFORT & INSPECTION: Yes able to speak in complete sentences and No respiratory distress AUSCULTATION: clear to auscultation bilaterally, no crackles, no rales, no rhonchi and no wheezes Cardio: COMMON NORMALS: no JVD, regular rate, regular rhythm, S1 normal heart sound present and S2 normal heart sound present RATE: regular rate RHYTHM: regular rhythm HEART SOUNDS: S1 normal heart sound present and S2 normal heart sound present GI: COMMON NORMALS: Normal to inspection, nondistended, normoactive bowel sounds present, Soft to palpation and non-tender PALPATION: Yes Soft to palpation : COMMON NORMALS: Yes no CVA tenderness BLADDER/KIDNEY EXAM: Yes no CVA tenderness Back/Pelvis: COMMON NORMALS: no CVA tenderness Extremity: COMMON NORMALS: normal to inspection, full ROM, no joint enlargement, no clubbing, cyanosis or edema and no calf tenderness Neuro: COMMON NORMALS: patient oriented x3 SENSORIUM/ORIENTATION: Yes alert Course Vital Signs: Vital signs: Vital Signs Temperature 98.8 F 12/19/24 13:53 Pulse Rate 96 12/19/24 16:06 Respiratory Rate 26 H 12/19/24 13:53 Blood Pressure 123/88 12/19/24 15:30 Pulse Oximetry 96 12/19/24 16:06 Oxygen Delivery Me thod Room Air 12/19/24 16:06 Oxygen Flow Rate 2 12/19/24 13:53 MDM - SOB/Dyspnea Medical Decision Making Patient is presenting with fibromyalgia exacerbation and generalized body aches, IV fluids and Toradol have been given and patient reassessed she does feel improved. Here she is satting at her usual nasal cannula satting very well she is also satting well on room air. She is not dyspneic at this time. Her workup is remarkable for no significant abnormalities no leukocytosis no anemia. Chest x-ray is clear no UTI. D-dimer was obtained and is negative ruling out pulmonary embolism viral swab is negative for influenza. Troponin negative rules out injury myocardial injury or infarction. Patient is reassessed she does feel improved discussed results with her and at this time patient felt to be stable for discharge. Lab Data 12/19/24 14:20 12/19/24 14:20 Labs/Radiology: Radiology Impressions Chest X-Ray 12/19/24 14:12 IMPRESSION: 1. No acute cardiopulmonary finding. Laboratory Results WBC 7.17 10^3/uL (3.29-11.43) 12/19/24 14:20 RBC 4.28 10^6/uL (3.85-5.65) 12/19/24 14:20 Hgb 12.60 g/dL (11.27-16.99) 12/19/24 14:20 Hct 38.2 % (36-47) 12/19/24 14:20 MCV 89.3 fl (85-98) 12/19/24 14:20 MCH 29.4 pg (27-33) 12/19/24 14:20 MCHC 33.0 g/dL (30-55) 12/19/24 14:20 RDW 12.8 % (12.1-15.1) 12/19/24 14:20 Plt Count 258 10^3/cmm (157-399) 12/19/24 14:20 MPV 8.7 fL (7.4-10.4) 12/19/24 14:20 Neut % (Auto) 65.5 % 12/19/24 14:20 Lymph % (Auto) 22.2 % 12/19/24 14:20 [place] % (Auto) 8.5 % 12/19/24 14:20 Eos % (Auto) 2.5 % 12/19/24 14:20 Baso % (Auto) 1.0 % 12/19/24 14:20 Neut # (Auto) 4.70 10^3/uL (1.8-7.7) 12/19/24 14:20 Lymph # (Auto) 1.6 10^3/uL (0.8-4.8) 12/19/24 14:20 [place] # (Auto) 0.6 10^3/uL (0.2-0.9) 12/19/24 14:20 Eos # (Auto) 0.2 10^3/uL (0.0-0.8) 12/19/24 14:20 Baso # (Auto) 0.1 10^3/uL (0.0-0.1) 12/19/24 14:20 Nucleated RBC % (auto) 0 % 12/19/24 14:20 Nucleated RBCs # 0.0 /100WBC 12/19/24 14:20 D-Dimer <= 0.27 ug/mLFEU (0-0.59) 12/19/24 14:20 Sodium 139 mmol/L (136-145) 12/19/24 14:20 Potassium 4.5 mmol/L (3.5-5.1) 12/19/24 14:20 Chloride 104 mmol/L (98-107) 12/19/24 14:20 Carbon Dioxide 24 mmol/L (22-29) 12/19/24 14:20 Anion Gap 15.5 (5-19) 12/19/24 14:20 BUN 13 mg/dL (8-23) 12/19/24 14:20 Creatinine 0.6 mg/dL (0.5-0.9) 12/19/24 14:20 GFR Calculation 98.8 mL/min (90-130) 12/19/24 14:20 Glucose 100 mg/dL (65-115) 12/19/24 14:20 Calculated Osmolality 288 mOsm/kg (285-295) 12/19/24 14:20 Lactic Acid 0.8 mmol/L (0.5-2.2) 12/19/24 14:20 Calcium 9.1 mg/dL (8.5-10.5) 12/19/24 14:20 Magnesium 1.8 mg/dL (1.7-2.3) 12/19/24 14:20 Total Bilirubin 0.2 mg/dL (0.15-1.2) 12/19/24 14:20 AST 15 U/L (0-32) 12/19/24 14:20 ALT 12 U/L (0-33) 12/19/24 14:20 Alkaline Phosphatase 61 U/L (35-105) 12/19/24 14:20 Troponin T Baseline < 6 ng/L (0-10) 12/19/24 14:20 NT-Pro-B Natriuret Pep < 36 pg/mL (0-125) 12/19/24 14:20 Total Protein 6.3 g/dL (6.6-8.7) L 12/19/24 14:20 Albumin 4.3 g/dL (3.5-5.2) 12/19/24 14:20 Globulin 2.0 g/dL (1.3-4.6) 12/19/24 14:20 Lipase 32 U/L (13-60) 12/19/24 14:20 Urine Color Yellow (Yellow) 12/19/24 14:44 Urine Appearance Clear (CLEAR) 12/19/24 14:44 Urine pH 6.5 (5-7) 12/19/24 14:44 Ur Specific [place] 1.014 (1.005-1.030) 12/19/24 14:44 Urine Protein Negative (Negative) 12/19/24 14:44 Urine Glucose (UA) Negative (Normal) 12/19/24 14:44 Urine Ketones Negative (Negative) 12/19/24 14:44 Urine Blood Negative (Negative) 12/19/24 14:44 Urine Nitrate Negative (Negative) 12/19/24 14:44 Urine Bilirubin Negative (Negative) 12/19/24 14:44 Urine Urobilinogen 0.2 mg/dL (Negative) 12/19/24 14:44 Ur Leukocyte Esterase Trace (Negative) A 12/19/24 14:44 Urine RBC 0-2 /hpf (0-2) 12/19/24 14:44 Urine WBC 0-5 /hpf (0-5) 12/19/24 14:44 Ur Squamous Epith Cells 0-5 /hpf (0-5) 12/19/24 14:44 Amorphous Sediment Not Reportable 12/19/24 14:44 Urine Bacteria None seen /hpf (NONE) 12/19/24 14:44 Hyaline Casts 0-4 /lpf H 12/19/24 14:44 Influenza A (PCR) Negative (Negative) 12/19/24 14:52 Influenza Type B (PCR) Negative (Negative) 12/19/24 14:52 RSV (PCR) Negative (Negative) 12/19/24 14:52 SARS-CoV-2 (PCR) Negative (Negative) 12/19/24 14:52 All radiology interpretation(s) finalized by discharge Discharge Plan Discharge Patient Disposition: Home Clinical Impression: Body aches, Fibromyalgia Condition: Stable Prescriptions: New ketorolac 10 mg tablet 10 mg PO Q8H PRN (Reason: pain) 3 Days Qty: 10 0RF No Action duloxetine 60 mg capsule,delayed release(DR/EC) 120 mg PO DAILY Qty: 180 3RF buspirone 10 mg tablet 10 mg PO BID Qty: 180 3RF trazodone 100 mg tablet 200 mg PO .HS PRN (Reason: insomnia) Qty: 180 3RF atorvastatin 20 mg tablet 20 mg PO BEDTIME@2000 Qty: 30 10RF pantoprazole 40 mg tablet,delayed release (DR/EC) 40 mg PO DAILY Qty: 90 3RF propranolol 10 mg tablet 10 mg PO BID Qty: 180 3RF naproxen 500 mg tablet 500 mg PO BID PRN (Reason: pain) Qty: 60 6RF nystatin 100,000 unit/gram powder 1 applic TOPICAL DAILY PRN (Reason: UNKNOWN) Qty: 60 3RF ondansetron HCl 4 mg tablet 4 mg PO Q6H PRN (Reason: Nausea And Vomiting) Qty: 30 3RF solifenacin 5 mg tablet 5 mg PO DAILY Qty: 30 6RF dalfampridine 10 mg tablet extended release 12 hr 10 mg PO Q12H Qty: 60 0RF Rx Instructions: MUST SEE PROVIDER FOR FURTHER REFILLS risperidone 1 mg tablet 1 mg PO BID Qty: 60 2RF acetaminophen [Tylenol] 325 mg Tablet 325 mg PO QID PRN (Reason: Pain) cholecalciferol (vitamin D3) [Vitamin D3] 50 mcg (2,000 unit) tablet 50 mcg PO DAILY acyclovir 400 mg tablet 400 mg PO BID losartan 50 mg Tablet 50 mg PO DAILY Qty: 90 0RF cyanocobalamin (vitamin B-12) 1,000 mcg tablet 1,000 mcg PO DAILY Qty: 90 0RF alendronate 70 mg tablet 70 mg PO .WEEKLY Rx Instructions: TAKE 1 TABLET BY MOUTH EVERY WEEK WHILE SITTING. DO NOT LIE DOWN WITHIN 30 MINUTES OF TAKING MEDICATION budesonide-formoterol [Symbicort] 80-4.5 mcg/actuation HFA aerosol inhaler 2 puff inhalation PRN PRN (Reason: sob) Rx Instructions: INHALE TWO PUFFS TWICE DAILY primidone 50 mg tablet 50 mg PO BID risperidone 0.25 mg tablet 0.25 mg PO BID amlodipine 5 mg tablet 5 mg PO DAILY lorazepam 0.5 mg tablet 0.5 mg PO DAILY zolpidem 5 mg tablet 5 mg PO BEDTIME Discharge Orders: Discharge ED (Routine); Ordered 12/19/24 Ordered By: Jose Juan Mendoza Referrals: Darryl Coronado MD [Primary Care Provider] - Patient Instructions: Opioid Safety, Pain Management Print Language: Yoruba Coding Level of Care Code ED Check Writer Salesperson for Teresa Ewing
== END 2024-12-19 17:09 | disposition home or self-care (01) ==
PROVIDERS: Emergency Provider Emergency Medicine; PCP Family Medicine
DX: M54.9 Dorsalgia, unspecified (principal); M79.7 Fibromyalgia; Z11.52 Encounter for screening for COVID-19; Z87.891 Personal history of nicotine dependence; E11.9 Type 2 diabetes mellitus without complications; J44.9 Chronic obstructive pulmonary disease, unspecified
CPT/HCPCS: 36415; 71045; 80053; 81001; 83605; 83690; 83735; 83880; 84484; 85025; 85378; 87040; 87637; 93005; 96374; 99285; J1885

== ENCOUNTER 2025-01-09 12:53 | Outpatient (CLI) | payer MEDICARE, MEDICAID, SELFPAY ==
--- NOTE | 2025-01-09 12:57 | XRR_ITS ---
PROCEDURE INFORMATION: Exam: XR Lumbosacral Spine Exam date and time: 01/09/2025 1:13 PM Age: 69 years old Clinical indication: Low back pain TECHNIQUE: Imaging protocol: Radiologic exam of the lumbosacral spine. Views: 2 or 3 views. COMPARISON: OT XR lumbar spine 1V [id number] 02/27/2022 11:26 AM FINDINGS: Bones/joints: Normal. No acute fracture. Normal alignment. Soft tissues: Unremarkable. XR/XR lumbar spine 2-3V* [id number] IMPRESSION: No acute findings.
== END 2025-01-09 12:54 | disposition home or self-care (01) ==
PROVIDERS: PCP Family Medicine; Visit Provider Family Medicine
DX: M54.16 Radiculopathy, lumbar region (principal); G89.29 Other chronic pain; R30.0 Dysuria; N39.0 Urinary tract infection, site not specified
CPT/HCPCS: 72100; 81000; 87086

== ENCOUNTER → 2025-04-03 13:41 | Outpatient (BNVA) | payer MEDICARE, SELFPAY | PROVIDERS: PCP Family Medicine; Visit Provider Family Medicine | DX: E11.9 Type 2 diabetes mellitus without complications (principal); E53.8 Deficiency of other specified B group vitamins; Z51.81 Encounter for therapeutic drug level monitoring | CPT/HCPCS: 80053; 82607; 83036; 85025 ==

== ENCOUNTER 2025-04-30 19:30 | Emergency (ER) | payer MEDICARE, MEDICAID, SELFPAY ==
--- OUTSIDE RECORDS SUMMARY | 2024-06-24 04:00 | XMS_ITS ---
Author Organization [facility] Address [address] [place] [address] Care Team Providers Care Sheet Rock Taper Helper Name Role Phone Migration, Provider Unavailable Unavailable REASON FOR VISIT EMR-Antonino Encounters Encounter Location Date Provider Diagnosis Migrated_Facility 0 0 06/24/2024 Provider Migration Plan Of Treatment Medication Medication Name Sig Start Date Stop Date Notes HYDROcodone-Acetaminop hen 10-325 MG Oral Tablet 2.5 Tablet Once a Day PRN 08/06/2021 09/05/2021 *Reorder from [facility] for eRx and Interaction Alerts* Progress Notes * AGUSTINA GARCIADOB:1955 (70 yo F)Acc No.[id number]:06/24/2024 Patient: Bharti AGUSTINA WONG :1955 A ge:69 Y S ex:Female Address:[address], [place], [address] * Refills Stop HYDROcodone-Acetaminophen 10-325 MG Oral Tablet, 2.5 Tablet Once a Day PRN Subjective: * Chief Complaints: * E MR-Antonino * * Date:
--- OUTSIDE RECORDS SUMMARY | 2024-06-25 04:00 | XMS_ITS ---
Author Organization [facility] Address [address] [place] [id number] Care Team Providers Care Bar Pilot Name Role Phone Migration, Provider Unavailable Unavailable Allergies Allergen (clinical drug ingredient) Drug/Non Drug Allergy documented on EMR Reaction Allergy Type Onset Date Status Latex Latex Unknown Allergy Active Substance with penicillin structure and antibacterial mechanism of action (substance) Penicillins Unknown Drug Allergy Active REASON FOR VISIT EMR-Antonino Social History Social History Additional Details Category Social Info Options Details Migrated Social History Migrated Social History Alcoholic beverages? - No, Currently on disability? - Yes, Drug or substance abuse? - No, exposure to toxins/poisonous substances at work - No, Involved in any legal proceedings or lawsuits? - No, Marital Status - single, Nonprescription drug use? - No, Participation in detoxification or rehabilitation - No, Smoking - No, Smoking status (MU) - Former smoker, Working currently? - No Encounters Encounter Location Date Provider Diagnosis Migrated_Facility 0 0 06/25/2024 Provider Migration Plan Of Treatment No Information Progress Notes * AGUSTINA GARCIADOB:1955 (70 yo F)Acc No.[id number]:06/25/2024 Patient: Bharti JUDITHMICHAELAAGUSTINA :1955 A ge:69 Y S ex:Female Address:[address] [place] [address], [id number] Subjective: * Chief Complaints: * E MR-Antonino * Medical History: Arthritis, B ronchitis, D epression, D iabetes, H igh blood pressure, H istory of measles, mumps, or rubella, K idney infection, K idney stone, M igraines, S tomach ulcer, S troke, T hyroid disease, * Surgical History: Gallbladder surgery Hysterectomy Neck surgery Spinal cord stimulator implantation * Family History: M igrated Family History: : Cancer, c hronic pain, D iabetes, f ibromyalgia, R heumatoid arthritis. * Social History: M igrated Social History: M igrated Social History: Alcoholic beverages? - No, C urrently on disability? - Yes, D rug or substance abuse? - No, e xposure to toxins/poisonous substances at work - No, I nvolved in any legal proceedings or lawsuits? - No, M arital Status - single, N onprescription drug use? - No, P articipation in detoxification or rehabilitation - No, S moking - No, S moking status (MU) - Former smoker, W orking currently? - No. * Allergies: P enicillins: AllergyLatex: Allergy * * Date:
[2025-04-30 19:40] VITALS: BP 157/87; PULSE 85; RESP 18; TEMP 36.7; O2SAT 95; BMI 35.1
--- OUTSIDE RECORDS SUMMARY | 2025-04-30 19:45 | XMS_ITS | Clinical Summary ---
Author Organization [facility] Address [address] Wang: [place] [address] Care Team Providers Care Health Science Instructor Name Role Phone Unavailable Primary Care Provider Unavailabl e Encounters Date Type Department Care Team Description 04/18/2025 External Device Data [facility]STRACTION Provider, Abstract 04/03/2025 External Device Data [facility] Provider, Abstract 03/14/2025 External Device Data [facility] Provider, Abstract 03/13/2025 External Device Data [facility] Provider, Abstract 02/13/2025 External Device Data [facility] Provider, Abstract 02/08/[address] 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 Gender Identity Not on file Sexual Orientation Not on file Plan of Treatment Health Maintenance Due Date Last Done Comments DIABETES ANNUAL FOOT EXAM 01/29/1972 DIABETES ANNUAL RETINAL EXAM 01/29/1972 DIABETES HBA1C Q 6 MONTHS 01/29/1972 DIABETES MICROALBUMIN ANNUAL SCREEN 01/29/1972 LDL CHOLESTEROL ANNUAL 01/29/1972 DTAP/TDAP/TD VACCINES (1 - Tdap) 1973 PNEUMOCOCCAL VACCINE 50+ YEARS (1 of 2 - PCV) 01/28/19 73 BREAST CANCER SCREENING 1994 COLORECTAL SCREENING 1999 Colorectal Cancer Screening 1999 FIT-DNA Q 3 years 1999 FIT/FOBT Q 1 year 1999 Flex Sig/CT Colonography Q 5 years 1999 ZOSTER VACCINE (1 of 2) 01/29/2004 OSTEOPOROSIS SCREENING 2019 INFLUENZA VACCINE (#1) 2025 RSV VACCINE (60+ or ) (1 - 1-dose 75+ series) 2029
--- OUTSIDE RECORDS SUMMARY | 2025-04-30 19:45 | XMS_ITS ---
Author Organization [facility] are Care Team Providers Care Cytopathologist Name Role Phone Kim Toney Unavailable Unavailable Allan Meza Unavailable Unavailable Corry Galan Unavailable Unavailable Theresa Meza Unavailable Unavailable Curtis Jimenez Unavailable Unavailable Allergies and adverse reactions Code CodeSystem Substance Reaction Severity StartDate Concern Status 64995 RXNORM QUEtiapine Unknown 04/12/[address] Penicillins Unknown 04/12/[address] Latex Unknown 04/12/2024 active Care Team Name Role Address Phone Organization Dates Allan Meza PCP [address] [facility] [place], [address], [facility] (Office): : [facility] 04/12/2024 - 04/17/2024 Kim Toney [address], [address], [place] (Office): : [facility] 04/12/2024 - 04/17/2024 Corry Galan [address], [address], [facility] (Office): : [facility] 04/12/2024 - 04/17/2024 Theresa Susana [address] [place], [address], [facility] (Office): : : [facility] 04/12/2024 - 04/17/2024 Curtis Tony [address] [place], [address], [facility] (Office): : : [phone] [facility] 04/12/2024 - 04/17/2024 Immunizations Immunization Status Vaccine Details Vaccine Code CodeSystem Date Notes TB 2 Step Mantoux Skin Test completed tuberculin skin test; unspecified formulation lotNumber: [id number] expiry: 07/30/2025 Mfg: [employer] Given 0.1 ml Left Forearm subcutaneously Step 1 of Multi-step with next step required 98 CVX created date: 04/12/2024 consent date: 04/12/2024 administere d date: 04/12/2024 Medications Section Medication Name Status Code CodeSystem Dose Route Frequency Admin Type Sig Text Start Date End Date Acetaminophen Oral Tablet 325 MG active 053784 RXNORM 1 tablet Oral as needed PRN Give 1 tablet by mouth every 6 hours as needed for Pain 2023 - Cyanocobalami n Oral Tablet active 1 tablet Oral one time a day Routine Give 1 tablet by mouth one time a day for VITAMI N DEFICI ENCY, UNSPEC IFIED (E56.9 ) 2023 - Solifenacin Succinate Oral Tablet 10 MG active 990090 RXNORM 1 tablet Oral one time a day Routine Give 1 tablet by mouth one time a day for OVERAC TIVE BLADDE R (N32.8 1) 2023 - traZODone HCl Oral Tablet 50 MG active 216029 RXNORM 1 tablet Oral as needed PRN Give 1 tablet by mouth every 24 hours as needed for Insomn ia GIVE AT BEDTIM E 2023 - Atorvastatin Calcium Oral Tablet 20 MG active 597699 RXNORM 1 tablet Oral at bedtime Routine Give 1 tablet by mouth at bedtim e for PURE HYPERC HOLEST EROLEM IA, UNSPEC IFIED (E78.0 0) 2023 - Pantoprazole Sodium Oral Tablet Delayed Release 40 MG active 333960 RXNORM 1 tablet Oral one time a day Routine Give 1 tablet by mouth one time a day for GASTRO -ESOPH AGEAL REFLUX DISEAS E WITHOU T ESOPHA GITIS (K21.9 ) 2023 - Losartan Potassium Oral Tablet 50 MG active 311017 RXNORM 1 tablet Oral one time a day Routine Give 1 tablet by mouth one time a day for PURE HYPERC HOLEST EROLEM IA, UNSPEC IFIED (E78.0 0) 2023 - OLANZapine Oral Tablet 2.5 MG active 493409 RXNORM 1 tablet Oral two times a day Routine Give 1 tablet by mouth two times a day for 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 ER (F60.3 ) 2023 - Nicotine Polacrilex Mouth/Throat Gum active 1 lozeng e Oral as needed PRN Give 1 lozeng e by mouth every 2 hours as needed for nicoti ne withdr awal 2023 - Dalfampridine ER Oral Tablet Extended Release 12 Hour 10 MG active 489727 RXNORM 1 tablet Oral two times a day Routine Give 1 tablet by mouth two times a day for MULTIP LE SCLERO SIS (G35) 2023 - Propranolol HCl Oral Tablet 10 MG active 020123 RXNORM 1 tablet Oral two times a day Routine Give 1 tablet by mouth two times a day for DEPRES EARL, UNSPEC IFIED (F32.A ) 2023 - Symbicort Inhalation Aerosol 80-4.5 MCG/ACT active 6571388 RXNORM 2 puff Inhalat ion two times a day Routine 2 puff inhale orally two times a day for (E78.0 0) 2023 - HYDROcodone-A cetaminophen Oral Tablet 5-325 MG active 636221 RXNORM 1 tablet Oral as needed PRN Give 1 tablet by mouth every 8 hours as needed for pain 2023 - Acyclovir Oral Tablet 400 MG active 269133 RXNORM 1 tablet Oral two times a day Routine Give 1 tablet by mouth two times a day for (E78.0 0) 2023 - Cholecalcifer ol Oral Capsule 50 MCG (1999 UT) active 934855 RXNORM 1 capsul e Oral one time a day Routine Give 1 capsul e by mouth one time a day for VITAMI N DEFICI ENCY, UNSPEC IFIED (E56.9 ) 2023 - Ondansetron HCl Oral Tablet 4 MG active 360214 RXNORM 1 tablet Oral as needed PRN Give 1 tablet by mouth every 6 hours as needed for NAUSEA /VOMIT ING 2023 - busPIRone HCl Oral Tablet 10 MG active 603704 RXNORM 1 tablet Oral two times a day Routine Give 1 tablet by mouth two times a day for GENERA LIZED ANXIET Y DISORD ER (F41.1 ) 2023 - ALPRAZolam Oral Tablet 0.5 MG active 494683 RXNORM 1 tablet Oral as needed PRN Give 1 tablet by mouth every 8 hours as needed for anxiet y 2023 - DULoxetine HCl Oral Capsule Delayed Release Particles 60 MG active 685656 RXNORM 1 capsul e Oral one time a day Routine Give 1 capsul e by mouth one time a day for DEPRES EARL, UNSPEC IFIED (F32.A ) 2023 - Alendronate Sodium Oral Tablet 70 MG active 012647 RXNORM 1 tablet Oral one time a day Routine Give 1 tablet by mouth one time a day every 7 day(s) for AGE-RE LATED OSTEOP OROSIS WITHOU T CURREN T PATHOL OGICAL FRACTU TAKE WHILE SITTIN G. DO NOT LIE DOWN WITHIN 30 MINUTE S OF TAKING 2023 - Mental Status Section Date Assessment Total Score Description 04/17/2024 CAM 4 Delirium indica nasim Problems Problem # Description Date of onset Resolved Date Code CodeSystem Concern Status 1 AGE-RELATED OSTEOPOROSIS WITHOUT CURRENT PATHOLOGICAL FRACTURE 04/12/[address] active 2 AUDITORY HALLUCINATIONS 04/12/[address] active 3 BORDERLINE PERSONALITY DISORDER 04/12/2024200057878612 SNOMED CT active 4 DELUSIONAL DISORDERS 04/12/[address] active 5 DEPRESSION, UNSPECIFIED 04/12/[address] active 6 GASTRO-ESOPHAGEAL REFLUX DISEASE WITHOUT ESOPHAGITIS 04/12/[address] active 7 GENERALIZED ANXIETY DISORDER 04/12/[address] active 8 METABOLIC ENCEPHALOPATHY 04/12/[address] active 9 MULTIPLE SCLEROSIS 04/12/[address] active 10 OVERACTIVE BLADDER 04/12/2024 [address] T active 11 PURE HYPERCHOLESTEROLEMI A, UNSPECIFIED 04/12/[address] active 12 TYPE 2 DIABETES MELLITUS WITHOUT COMPLICATIONS 04/12/[address] active 13 URINARY TRACT INFECTION, SITE NOT SPECIFIED 04/12/[address] active 14 VITAMIN DEFICIENCY, UNSPECIFIED 04/12/[address] active Reason for Referral No Reasons for Referral Entered Social History Social History Observation Description Start Date End Date Code Code System Current Smoking Status Tobacco smoking consumption unknown 477593979 SNOMED CT Sex Assigned At Female 1955 64470-1 [facility] Gender Identity Female [id number] Vital Signs Code Code System Vitals Name Values and Units Timing Information 24490-1 [facility] Pain Level Value=2.0 04/17/2024 8462-4 [facility] Blood Pressure-Diastolic Value=88 Un its=mmHg 04/17/2024 8480-6 [facility] Blood Pressure-Systolic Fylhb=758 Un its=mmHg 04/17/2024 8867-4 [facility] Heart rate Value=96.0 Units=/min 9279-1 [facility] Respiratory Rate Value=22.0 Units=/m in 04/16/2024 8310-5 [facility] Body Temperature Value=98.5 Units= F 04/16/2024 01780-4 [facility] O2 % BldC Oximetry Value=97.0 Units= % 04/16/2024 59908-7 [facility] Weight Kczje=068.0 Units=Lbs 8302-2 [facility] Height Value=62.0 Units=Inches 04/12/2024
--- OUTSIDE RECORDS SUMMARY | 2025-04-30 19:45 | XMS_ITS | Patient Health Record ---
Author Organization [facility] Address [address] [place] [address] Care Team Providers Care Sales Advisory Manager Name Role Phone Migration, Provider Unavailable Unavailable Reason For Referral Reason Eval and Treat for i njections Diagnosis 1 Radiculopathy, lumba r region (M54.16) Diagnosis 2 Chronic pain (G89.29 ) Referring Provider First Name Darryl Referring Provider Last Name Cliff Referring Provider Speciality Family Med icine Referred Organization [facility] Referred Provider Magaly Varghese Referred Address [address] [facility],[place], [place],[address], Referred Provider Specialty Pain Medicin e General Notes Daria Mohan 09:15:19 AM CDT > declined referral Referral Priority Routine Social History Social History Additional Details Category [...] - Former smoker, Working currently? - No Problems Problem Type SNOMED Code ICD Code Onset Dates Problem Status W/U Status Risk Notes Problem Lumbar radiculopathy (983926004) Radiculopath y, lumbar region (M54.16) Active confirmed Problem Chronic pain (G89.29) Active confirmed Encounters Encounter Location Date Provider Diagnosis Migrated_Facility 0 0 06/24/2024 Provider Migration Migrated_Facility 0 0 06/25/2024 Provider Migration Plan Of Treatment No Information Insurance Providers Payer Name Payer Address Payer Phone Subscriber Number Group Number Insured Name Patient Relationship to Insured Coverage Start Date Coverage End Date [employer] Medicare Replacement [address] [address] [place] [address] [id number] AGUSTINA GARCIA Self - patient is the insured Medical (General) History Surgical History Surgery Date(Month/Year) Gallbladder surgery Hysterectomy Neck surgery Spinal cord stimulator implantation
--- NOTE | 2025-04-30 19:59 | W.ED.ABDPA2 ---
HPI - Abdominal Pain General: Chief Complaint: Abdominal Pain Stated Complaint: abdomen pain Time Seen by Provider: 04/30/25 19:32 History of Present Illness: Patient is a 70-year-old female with HTN, presented to the emergency room with right upper quadrant abdominal pain, nausea, and emesis in ambulance x 1 of bilious production, not passing gas, history of cholecystectomy and hysterectomy x 1 day. Patient is a difficult historian. She initially stated she had never had an abdominal surgery, then noted she is status post cholecystectomy and hysterectomy. She had a normal bowel movement today. She states that she is not passing gas. She is not having burping. Associated Symptoms: Reports nausea and vomiting; Denies change in stool character (normal stool today) Related Data Home Medications ?Medication ?Instructions ?Recorded ?Confirmed acetaminophen 325 mg tablet 325 mg PO QID PRN Pain 11/11/20 04/03/25 (Tylenol) cholecalciferol (vitamin D3) 50 50 mcg PO DAILY 01/05/24 04/03/25 mcg (2,000 unit) tablet (Vitamin D3) Previous Rx's ?Medication ?Instructions ?Recorded cyanocobalamin (vitamin B-12) 1,000 mcg PO DAILY #90 tabs 04/12/24 1,000 mcg tablet pantoprazole 40 mg tablet,delayed 40 mg PO DAILY #90 tabs 06/20/24 release propranolol 10 mg tablet 10 mg PO BID #180 tabs 08/17/24 buspirone 10 mg tablet 10 mg PO BID #180 tabs 09/21/24 duloxetine 60 mg capsule,delayed 120 mg (2 x 60 mg) PO DAILY #180 09/21/24 release caps trazodone 100 mg tablet 200 mg (2 x 100 mg) PO .HS PRN 09/21/24 insomnia #180 tabs nystatin 100,000 unit/gram topical 1 applic topical DAILY PRN UNKNOWN 10/09/24 powder #60 grams primidone 50 mg tablet See Rx Instructions .Route 12/29/24 .COMPLEX #180 tabs acyclovir 400 mg tablet See Rx Instructions .Route 01/01/25 .COMPLEX #60 tabs amlodipine 5 mg tablet See Rx Instructions .Route 01/01/25 .COMPLEX #30 tabs atorvastatin 20 mg tablet 20 mg PO BEDTIME@2000 #30 tabs 01/01/25 losartan 100 mg tablet See Rx Instructions .Route 01/01/25 .COMPLEX #30 tabs meloxicam 15 mg tablet 15 mg PO DAILY #30 tabs 01/09/25 ondansetron HCl 4 mg tablet 4 mg PO Q6H PRN Nausea And 02/05/25 Vomiting #30 tabs budesonide-formoterol HFA 80 See Rx Instructions .Route 02/26/25 mcg-4.5 mcg/actuation aerosol .COMPLEX #10.2 grams inhaler (Symbicort) solifenacin 10 mg tablet 10 mg PO DAILY #30 tabs 03/27/25 doxycycline hyclate 100 mg capsule 100 mg PO BID #14 caps 04/03/25 dalfampridine 10 mg 10 mg PO Q12H #60 tabs 04/10/25 tablet,extended release,12 hr ketoconazole 2 % shampoo 1 applic topical Q14D #120 mL 04/18/25 albuterol sulfate 90 mcg/actuation 2 puff inhalation Q6H PRN 04/24/25 aerosol inhaler (Ventolin HFA) shortness of breath or wheezing #8.5 grams alendronate 70 mg tablet See Rx Instructions .Route 04/26/25 .COMPLEX #12 tabs Allergies Allergy/AdvReac Type Severity Reaction Status Date / Time Penicillins Allergy HIVES Verified 03/13/25 10:37 latex AdvReac rash Verified 03/13/25 10:37 quetiapine (From Seroquel) AdvReac ADR-Hallucinating Verified 03/13/25 10:37 / DIZZINESS Review of Systems General: Reports: 10 or more systems reviewed and unremarkable except in HPI and below Eyes: Denies: change in vision or blurry vision ENMT: Denies: throat pain Card: Denies: chest pain or palpitations Resp: Denies: dyspnea or non-productive cough GI: Reports: abdominal pain, nausea and vomiting; Denies: change in stool character (normal stool today) : Denies: flank pain or difficulty voiding Musc: Denies: neck pain or back pain Skin/Breast: Denies: rash or pruritus Neuro: Denies: headache(s), numbness in extremities or weakness in extremities Psych: Denies: anxiety or depression Endo: Denies: polyuria or polydipsia Lake/Lymph: Denies: easy bruising or easy bleeding PFS ED PFSH: Medical History (Updated 04/30/25 @ 20:15 by JOSE MARTIN Hernández) 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 Chronic hypertension Diagnosed in 2009 and controlled on medication managed by primary care provider No pertinent past medical history Denies: Asthma seizures, DVT/PE PCP: Dr. Coronado Borderline personality disorder Major depressive disorder, recurrent severe without psychotic features Long-term current use of opiate analgesic Cervical facet syndrome Chronic radicular low back pain Has had surgery for chronic lower back pain. Surgical History History of eyelid surgery Right - Mann Status post cervical spinal fusion History of colonoscopy History of esophagogastroduodenoscopy (EGD) S/P placement of nerve stimulator S/P removal by Dr Krishnamurthy in 2021. Hx of [place]ectomy [place] [facility] [place]x of cervical spine surgery (~03/24/18) Dr Watts 03/24/18 Comments: Cervical laminectomy for placement of intraspinal, epidural paddle electrode arrays and placement of subcutaneous pulse generator. Hx of hysterectomy Had a total abdominal hysterectomy via Pfannenstiel incision for pelvic inflammatory disease per patient. She states that both tubes, uterus and the left ovary were removed. She only has her right ovary remaining at this time. Family History Mother Diabetes Heart disease Hyperlipidemia Brother Hypertension x 2 Sister Breast cancer Diagnose at age 35 Brother Lung cancer Denies family history of Colon cancer Ovarian cancer Anesthesia complication Bleeding disorder Uterine cancer Thyroid disease Stroke Social History Smoking and tobacco/nicotine status: never used tobacco/nicotine Quit status (tobacco/nicotine): has tried quititng Second hand smoke exposure: No Alcohol intake: former Substance/Drug Use: former Lives independently: Yes Household members: none Current occupational status: disabled Physical Exam Const: COMMON NORMALS: no acute distress, average body habitus and patient oriented x3 HENMT: COMMON NORMALS: normocephalic and atraumatic HEAD & SCALP: normocephalic and atraumatic Eye: COMMON NORMALS: Equal, round and reactive pupils present and EOMs intact bilaterally PUPIL: Yes Equal, round and reactive pupils present Neck/C-Spine: COMMON NORMALS: no lymphadenopathy and supple Chest: COMMONS NORMALS: normal inspection of the chest and normal palpation of entire chest wall Resp: COMMON NORMALS: normal respiratory effort, No retractions and clear to auscultation bilaterally AUSCULTATION: clear to auscultation bilaterally Cardio: COMMON NORMALS: regular rate and regular rhythm RATE: regular rate RHYTHM: regular rhythm GI: COMMON NORMALS: Normal to inspection, nondistended, normoactive bowel sounds present, Soft to palpation, non-tender and No hepatosplenomegaly present INSPECTION: Yes normal to inspection PALPATION: Yes Soft to palpation, No Tenderness to palpation present (GI), No Guarding due to palpation present (GI), No Rigid due to palpation and Yes No hepatosplenomegaly present : COMMON NORMALS: Yes no CVA tenderness BLADDER/KIDNEY EXAM: Yes no CVA tenderness Back/Pelvis: COMMON NORMALS: no CVA tenderness Extremity: COMMON NORMALS: normal to inspection, full ROM and capillary refill normal Neuro: COMMON NORMALS: patient oriented x3 Psych: COMMON NORMALS: mental status grossly normal and Normal thought process present THOUGHT PROCESS: Normal thought process present Course Vital Signs: Vital signs: Vital Signs Temperature 98.1 F 04/30/25 19:40 Pulse Rate 85 04/30/25 19:40 Respiratory Rate 18 04/30/25 19:40 Blood Pressure 157/87 04/30/25 19:40 Pulse Oximetry 95 04/30/25 19:40 Oxygen Delivery Me thod Room Air 04/30/25 19:40 MDM - Abdominal Pain Medical Decision Making Patient is a 70-year-old female that presented to the ED with complaints of right upper quadrant abdominal pain, nausea, and vomiting. She had a inconsistent interview noted above in HPI. Workup was pending, patient became angry, and stated she was leaving AGAINST MEDICAL ADVICE. I was unable to personally advise her the risk of AGAINST MEDICAL ADVICE, however nursing has advised her of risk including , however patient left prior to signing her forms. Unsure why she became irate and wanted to immediately leave, as well as why her interview was inconsistent. Medical Records I reviewed the patient's medical records. No radiology studies performed this visit Discharge Plan Discharge Patient Disposition: Left Against Medical Advice Clinical Impression: Abdominal pain, Nausea & vomiting Condition: Stable Prescriptions: No Action ketorolac 30 mg/mL solution 60 mg IM ONCE Qty: 2 0RF doxycycline hyclate 100 mg capsule 100 mg PO BID Qty: 14 0RF duloxetine 60 mg capsule,delayed release(DR/EC) 120 mg PO DAILY Qty: 180 3RF buspirone 10 mg tablet 10 mg PO BID Qty: 180 3RF trazodone 100 mg tablet 200 mg PO .HS PRN (Reason: insomnia) Qty: 180 3RF meloxicam 15 mg tablet 15 mg PO DAILY Qty: 30 6RF pantoprazole 40 mg tablet,delayed release (DR/EC) 40 mg PO DAILY Qty: 90 3RF propranolol 10 mg tablet 10 mg PO BID Qty: 180 3RF nystatin 100,000 unit/gram powder 1 applic TOPICAL DAILY PRN (Reason: UNKNOWN) Qty: 60 3RF primidone 50 mg tablet See Rx Instructions .ROUTE .COMPLEX Qty: 180 3RF Dose Instruction: TAKE 2 TABLETS BY MOUTH EVERY DAY Rx Instructions: TAKE 2 TABLETS BY MOUTH EVERY DAY atorvastatin 20 mg tablet 20 mg PO BEDTIME@2000 Qty: 30 10RF acyclovir 400 mg tablet See Rx Instructions .ROUTE .COMPLEX Qty: 60 10RF Dose Instruction: TAKE 1 TABLET BY MOUTH TWO TIMES DAILY Rx Instructions: TAKE 1 TABLET BY MOUTH TWO TIMES DAILY amlodipine 5 mg tablet See Rx Instructions .ROUTE .COMPLEX Qty: 30 10RF Dose Instruction: TAKE 1 TABLET BY MOUTH EVERY DAY Rx Instructions: TAKE 1 TABLET BY MOUTH EVERY DAY losartan 100 mg tablet See Rx Instructions .ROUTE .COMPLEX Qty: 30 10RF Dose Instruction: TAKE 1 TABLET BY MOUTH EVERY DAY DIRECTED Rx Instructions: TAKE 1 TABLET BY MOUTH EVERY DAY DIRECTED ondansetron HCl 4 mg tablet 4 mg PO Q6H PRN (Reason: Nausea And Vomiting) Qty: 30 3RF budesonide-formoterol [Symbicort] 80-4.5 mcg/actuation HFA aerosol inhaler See Rx Instructions .ROUTE .COMPLEX Qty: 10.2 6RF Dose Instruction: INHALE TWO PUFFS BY MOUTH TWICE DAILY Rx Instructions: INHALE TWO PUFFS BY MOUTH TWICE DAILY solifenacin 10 mg tablet 10 mg PO DAILY Qty: 30 5RF dalfampridine 10 mg tablet extended release 12 hr 10 mg PO Q12H Qty: 60 0RF Rx Instructions: *No Further Refills Until Patient Is Seen By Doctor* ketoconazole 2 % shampoo 1 applic topical Q14D Qty: 120 3RF albuterol sulfate [Ventolin HFA] 90 mcg/actuation HFA aerosol inhaler 2 puff inhalation Q6H PRN (Reason: shortness of breath or wheezing) Qty: 8.5 6RF alendronate 70 mg tablet See Rx Instructions .ROUTE .COMPLEX Qty: 12 2RF Dose Instruction: TAKE 1 TABLET BY MOUTH EVERY WEEK WHILE SITTING. DO NOT LIE DOWN WITHIN 30 MINUTES OF TAKING MEDICATION Rx Instructions: TAKE 1 TABLET BY MOUTH EVERY WEEK WHILE SITTING. DO NOT LIE DOWN WITHIN 30 MINUTES OF TAKING MEDICATION acetaminophen [Tylenol] 325 mg Tablet 325 mg PO QID PRN (Reason: Pain) cholecalciferol (vitamin D3) [Vitamin D3] 50 mcg (2,000 unit) tablet 50 mcg PO DAILY cyanocobalamin (vitamin B-12) 1,000 mcg tablet 1,000 mcg PO DAILY Qty: 90 0RF Referrals: Darryl Coronado MD [Primary Care Provider, Family Practice] Patient Instructions: Abdominal Pain (ED) Print Language: Greenlandic Coding Level of Care Code ED Driver Education Road Instructor for Teresa Ewing
== END 2025-04-30 20:24 | disposition left against medical advice (07) ==
PROVIDERS: Emergency Provider Physician Assistant; PCP Family Medicine
DX: R10.11 Right upper quadrant pain (principal); R11.2 Nausea with vomiting, unspecified; E11.9 Type 2 diabetes mellitus without complications; I10 Essential (primary) hypertension

== ENCOUNTER → 2025-05-21 09:15 | Outpatient (BNVA) | payer MEDICARE, OTHER, SELFPAY | PROVIDERS: PCP Family Medicine; Visit Provider Family Medicine | DX: R30.0 Dysuria (principal); N39.0 Urinary tract infection, site not specified | CPT/HCPCS: 81000; 87086 ==

== ENCOUNTER → 2025-07-23 13:22 | Outpatient (BNVA) | payer MEDICARE, SELFPAY | PROVIDERS: PCP Family Medicine; Visit Provider Family Medicine | DX: E11.9 Type 2 diabetes mellitus without complications (principal) | CPT/HCPCS: 83036 ==